=== PATIENT | female | born 1940 | race Caucasian/White ===

== ENCOUNTER 2020-01-28 10:07 | Inpatient (IN) | payer OTHER, BC ==
--- NOTE | 2020-01-28 11:14 | R.PREADM ---
PRE-ADMISSION SCREENING FORM SCREENING DATE AND TIME 01/28/2020 10:09 (CDT) ANTICIPATED REHAB ADMISSION DATE 01/30/2020 REFERRING FACILITY Doctor Office REFERRAL DATE AND TIME 01/27/2020 04:00 (CDT) REFERRAL OFFICE PHONE REFERRAL ROOM# [id number] ACUTE ADMIT DATE 01/25/2020 Previous Rehabilitation(s): No. 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 ROSE PRIMARY CARE PHYSICIAN DR ROSE REHAB FACILITY [facility] CLINICAL LIAISON Angy [place] PHYSICIAN REVIEWER Dr. Fito Cuevas M.D. MR# [id number] NAME BRENDA TREJO ADDRESS [address] [place] [address] DATE OF 1940 AGE 79 SSN# [id number] GENDER female MARITAL STATUS RACE white PREF. LANGUAGE (IF NON-PORTUGUESE) Thai ADMIT FROM 02 - [facility] PRE-HOSPITAL LIVING SETTING 01 - Home (private home/apt. board/care, assisted living, skilled nursing, transitional living) HOME TYPE AND DETAILS Type of home: single family house # of levels in the residence: 1 # of steps to enter the residence: 1 # of steps within the residence: 1 1 svetlana home, 1 step to enter w/ door frame to grab on. Daughter or someone always there to assist h er per pt. She has a tub w/ overhead shower w/ chair, daughter helps her dry up after a shower. Pt. a mbulates w/ a rollator, normally able to get up OOB unassisted, she also has a wheelchair per pt. PRE-HOSPITAL LIVING WITH Attendant FAMILY SUPPORT Yes PRIMARY FAMILY CONTACT NAME Bayleejosiah Monterroso PRIMARY FAMILY CONTACT ALT. PHONE PRIMARY FAMILY CONTACT RELATIONSHIP Daughter IS PRIMARY FAMILY CONTACT AUTH. REP.? no 1ST EMERGENCY CONTACT Baylee Urick 1ST CONTACT ALT. PHONE 1ST CONTACT RELATIONSHIP Daughter IS 1ST CONTACT AUTH. REP.? no PHONE 2ND CONTACT ON ADM.? no PATIENT EMPLOYMENT STATUS Retired (for age) PATIENT EMPLOYER No Employer PAYOR INFORMATION: 1ST PAYOR NAME MEDICARE 1ST PAYOR PHONE 1ST PAYOR INJURY/ILLNESS DUE TO ACCIDENT? No ANOTHER [employer] RESPONSIBLE? No PRIMARY REHAB/ACUTE DIAGNOSIS: Parkinsons Exaserbation, Debilitation Parkinson's disease (G20) ONSET DATE 01/25/2020 REHAB IMPAIRMENT CATEGORY (YANNICK): 06 Neurological (Neuro) MEETS 60% rule PRIMARY DIAGNOSIS-RELATED SURGERIES: No surgeries related to the primary diagnosis were performed. RISK FOR COMPLICATIONS: - mass Intraductal papillary mucinous tumor serous cystadenoma SUMMARY OF ACUTE HOSPITALIZATION: Pt. is a 79 yo Right-handed white female. On 01/25/2020 she was admitted to [facility] with diagnosis Parkinson's disease (G20). Her impairment category is Neurologic Conditions 03 - Parkinsonism (03.2). Pre-morbidly, Pt. was independent/mod-I in Transfers Control, Locomotion, and Self-Care; and she had good Balance, Safety Awareness, Social Cognition, and Communication. Currently, she has deficits of Transfers Control, Locomotion, Balance, Safety Awareness, and Self-Car e. Pt. is now referred to [facility] for acute in-patient rehabilitation in order to maximize patient's functional independence in activities of daily living, strength, ROM, and mobi lity. Patient has realistic goal of being discharged at assistance level 6-Amanda to reside at Home with Ines rivera. CONSULT: consult Cardiology for bradiocardia PAST MEDICAL HISTORY HTN HYPERLIPIDEMIA HYPOTHYROID OVERACTIVEBLADDER DEPRESSION ANXIETY MEDICATION ALLERGIES: AZITHROMYCIN CODEINE PENTAZOCINE ENVIRONMENTAL ALLERGIES: BANANA - Substance Allergies None Known - Other Allergies None Known CODE STATUS: Full code WEIGHT/HEIGHT/BMI: WEIGHT 126 lbs HEIGHT 5' 1" BMI 23.8 DIET: - Diet Type Regular - Diet - Solid Texture Regular - Diet - Liquid Texture Regular - Tube Feed N/A REVIEW OF SYSTEMS: - Gen Alert and awake Lying in bed No apparent distress Oriented to: person, time, and place - Vital Signs Vital signs stable, afebrile - CVS RRR VITAL SIGNS Temperature: 97.8 F SBP/DBP: 155/70 Pulse: 65 Resp: 18 Vital signs stable, afebrile MEDICATIONS/TREATMENT: - See attached MAR (Medication Administration Record). CURRENT SPHINCTER CONTROL: Pre-hospital bladder status: continent # of bladder accidents in the last 7 days prior to screenin Pre-hospital bowel status: continent # of bowel accidents in the last 7 days prior to screenin Patient is continent but has Overactive Bladder CURRENT LOCOMOTION STATUS: distance walked 14 feet DETAILED CURRENT FUNCTIONAL STATUS: - Walking score based on distance walked: 1(<=50ft) - Wheelchair score based on distance traveled: 0(N/A) QI SCORES: - Self-Care A. Eating 05-Setup or clean-up assistance B. Oral hygiene 05-Setup or clean-up assistance C. Toileting hygiene 03-Partial/moderate assistance E. Shower/bathe self 03-Partial/moderate assistance F. Upper body dressing G. Lower body dressing H. Putting on/taking off footwear - Mobility A. Roll left and right 03-Partial/moderate assistance B. Sit to lying 03-Partial/moderate assistance C. Lying to sitting on side of bed 03-Partial/moderate assistance D. Sit to stand 03-Partial/moderate assistance E. Chair/zlk-bf-yeatt transfer 03-Partial/moderate assistance F. Toilet transfer 03-Partial/moderate assistance G. Car transfer 88-Not attempted due to medical condition or safety concerns I. Walk 10 feet 03-Partial/moderate assistance J. Walk 50 feet with two turns 88-Not attempted due to medical condition or safety concerns K. Walk 150 feet 88-Not attempted due to medical condition or safety concerns L. Walking 10 feet on uneven surfaces 88-Not attempted due to medical condition or safety concerns M. 1 step (curb) 88-Not attempted due to medical condition or safety concerns N. 4 steps 88-Not attempted due to medical condition or safety concerns O. 12 steps 88-Not attempted due to medical condition or safety concerns P. Picking up object 88-Not attempted due to medical condition or safety concerns - Bladder and Bowel Bladder continence 1-Stress incontinence only Bowel continence 0-Always continent - Endurance Poor - Balance Poor - Safety Awareness Poor CURRENT FUNC. DEFICITS: Self-Care, Mobility, Endurance, Balance, and Safety Awareness CURRENT / PREVIOUS ASSISTIVE DEVICES: Rolling Walker Tub Bench Wheelchair HISTORY OF FALLS. HAS THE PATIENT HAD TWO OR MORE FALLS IN THE PAST YEAR OR ANY FALL WITH INJURY IN T HE PAST YEAR?: No PRIOR SURGERY. DID THE PATIENT HAVE MAJOR SURGERY DURING THE 100 DAYS PRIOR TO ADMISSION?: No THERAPY NOTES FROM ACUTE CARE: Attached. SPECIAL NEEDS: - Safety Concerns Skin breakdown precautions needed due to skin breakdown risk PATIENT NEEDS ACTIVE AND ONGOING THERAPEUTIC INTERVENTION OF MULTIPLE THERAPY DISCIPLINES, INCLUDING: - Dietary and Nutrition Adequate Nutrition. Nutritional Education. Nutritional Supplements. - Speech Therapy Memory Strategies. Speech Intelligibility Training. PATIENT NEEDS CLOSE MEDICAL SUPERVISION BY A REHABILITATION PHYSICIAN FOR: Coordination of Treatment Team PATIENT REQUIRES 24X7 REHAB NURSING FOR MEDICAL AND FUNCTIONAL MGT. OF THE FOLLOWING DEFICITS: Disease Management Medication Management Patient/Family Education Providing Safe Environment PATIENT REQUIRES INTENSIVE, COORDINATED INTERDISCIPLINARY APPROACH TO REHAB: Arranging Home Equipment/Services Discharge Planning Family Intervention/Training Form Builder/Case Management PATIENT REHAB POTENTIAL: Catherine TREJO is able and expected to receive 3 hours of individualized therapy daily on at least 5 o f every 7 days Catherine TREJO's prognosis for significant practical improvement within a reasonable period of time ap pears Good Expected level of measurable improvement will be of a practical value to Catherine TREJO's functional c apacity or adaptations to impairments Has a viable Discharge Plan Medically appropriate; condition is sufficiently stable to participate in intensive rehab program DISCHARGE PLAN: - Estimated Length of Stay (days) 13. - Consensus on plan Discharge plan has not been discussed with primary caregiver. Patient/Family is in agreement with the plan. Primary caregiver is in agreement with the plan. - Patient/Family Goals Return home with assistance. - Planned Living Setting Upon Discharge Home, to live with Daughter. RECOMMENDED CARE LEVEL: IRF RECOMMENDATION DETAILS: Recommended Admission to Comprehensive Rehabilitation Program to Increase Functional Gilbert SCREENER'S COMPLETENESS CONFIRMATION: - Screening Confirmation The patient data collection on this preadmission screening form is finished PHYSICIANS REVIEW AND ADMISSION DETERMINATION Admit - Based on my review of the Pre-Admission Screening results, in my medical judgment and experie nce, I concur with the findings and recommend admission to [facility], as this patient requires an IRF level of care. SIGNATURE PANEL: Circular Saw Edge Fuser - [electronically] signed by Aylin Hurst Hand Engraver on 01/28/2020 at 10:57 (CD T) Clinical Liaison - [electronically] signed by Angy Florence RN on 01/28/2020 at 11:07 (CDT) Physician Reviewer - [electronically] signed by Dr. Fito Cuevas M.D. on 01/28/2020 at 11:14 (CDT )
[2020-01-28 17:39] LABS: Urine Appearance CLEAR; Urine Bilirubin NEGATIVE (NEG); Urine Blood NEGATIVE (NEG); Urine Color YELLOW; Urine Glucose NEGATIVE (NEG); Urine Protein NEGATIVE (NEG); Urine Urobilinogen 0.2 mg/dL (0.2-1.0); Urine pH 6.5 (5.0-7.0)
[2020-01-28 18:04] LABS: Urine Bacteria <20 /HPF (<20); Urine Culture Reflex Order NOT NEEDED; Urine RBC <5 /HPF (NONE SEEN)
[2020-01-28] MEDS ORDERED: ONDANSETRON 4 MG/2 ML VIAL IV PRN (18:36)
[2020-01-28] MEDS ORDERED: GUAIFENESIN PO SCH (18:36)
[2020-01-28] MEDS ORDERED: P EPHED HCL PO SCH (18:36)
[2020-01-28] MEDS: IBUPROFEN 400 MG TAB PO PRN (19:18)
[2020-01-28] MEDS: DIPHENHYDRAMINE 25 MG TAB/CAP PO PRN (19:47)
[2020-01-28] MEDS: ALPRAZOLAM 0.25 MG TABLET PO SCH (19:47)
[2020-01-28] MEDS: DULOXETINE 30 MG CAP PO SCH (19:47)
[2020-01-28] MEDS: OXYBUTYNIN CHLORIDE 5 MG TAB PO SCH (19:47)
[2020-01-28] MEDS: MIRTAZAPINE 15 MG TAB PO SCH (19:48)
[2020-01-28] MEDS: CARBIDOPA/LEVODOPA 25/100 TAB PO SCH (19:48)
[2020-01-28] MEDS: ATORVASTATIN 10 MG TAB PO SCH (19:49)
[2020-01-28] MEDS ORDERED: CEFTRIAXONE/SWI 1gm 1 GM/10 ML SYR IV SCH (20:00)
[2020-01-28] MEDS: TRAMADOL HCL 50 MG TAB PO PRN (23:02)
[2020-01-29] MEDS: IBUPROFEN 400 MG TAB PO PRN (04:10)
[2020-01-29] MEDS: LEVOTHYROXINE SOD 0.125 MG TAB PO SCH (05:01)
[2020-01-29 05:37] LABS: Absolute Lymphocytes (CBC) 5.2 K/uL (0.7-4.9); Basophils % 0.5 % (0-1.3); Hematocrit 33.1 % (36.0-45.0); Lymphocytes % 34.6 % (15.3-44.8); RBC Red Blood Cell Count 3.56 M/uL (3.86-4.86)
[2020-01-29 06:32] LABS: Blood Morphology Comment NOT SEEN (NOT SEEN); Platelet Estimate ADEQ; Platelets, Giant NOTED
[2020-01-29 07:00] LABS: Albumin 3.3 g/dL (3.4-5.0); BUN Blood Urea Nitrogen 14 mg/dL (7-18); Bicarbonate 30 mmol/L (21-32); Glucose Level 93 mg/dL (74-106); Potassium 3.5 mmol/L (3.5-5.1); Prealbumin 26.3 mg/dL (20-40); Sodium Level 144 mmol/L (136-145)
[2020-01-29] MEDS: ENOXAPARIN 30 MG/0.3 ML SQ SCH (07:13)
[2020-01-29] MEDS ORDERED: predniSONE 20 MG TAB PO SCH (08:00)
[2020-01-29] MEDS: PROMOD 30 ML DOSE PO SCH ×2 (08:51→20:33)
[2020-01-29] MEDS: AMLODIPINE 5 MG TAB PO SCH (08:53)
[2020-01-29] MEDS: CARBIDOPA/LEVODOPA 25/100 TAB PO SCH ×3 (08:53→20:33)
[2020-01-29] MEDS: CETIRIZINE HCL 5 MG TABLET PO SCH (08:53)
[2020-01-29] MEDS: VITAMIN D 5,000 UNIT CAP PO SCH (08:53)
[2020-01-29] MEDS: OXYBUTYNIN CHLORIDE 5 MG TAB PO SCH ×3 (08:54→20:33)
[2020-01-29] MEDS: ALPRAZOLAM 0.25 MG TABLET PO SCH ×4 (08:54→21:59)
[2020-01-29] MEDS: DULOXETINE 30 MG CAP PO SCH ×2 (08:54→20:28)
[2020-01-29] MEDS ORDERED: DOCUSATE NA/SENNA CONC 1 TAB PO PRN (10:14)
--- NOTE | 2020-01-29 11:52 | PAPE ---
POST ADMISSION PHYSICIAN EVALUATION PATIENT: [facility] MR# [id number] REFERRING DOCTOR DR. ROSE PRIMARY CARE PHYSICIAN DR ROSE EVALUATION DATE AND TIME 01/29/2020 11:49 (CDT) NAME BRENDA TREJO DATE OF 1940 AGE 79 PHONE SSN# [id number] GENDER female EVALUATING PHYSICIAN Dr. Palak Moscoso ADMISSION DIAGNOSIS: Parkinson's disease (G20) Parkinsons Exaserbation, Debilitation ONSET DATE 01/25/2020 POST-ADMISSION FUNCTIONAL/MEDICAL STATUS: - Walking Same score based on distance walked: 1(<=50ft) - Wheelchair Same score based on distance traveled: 0(N/A) STATUS CHANGE EVALUATION: No change in Functional or Medical Status is identified compared with Pre-Admission screening. PRE-ADMISSION FUNCTIONAL/MEDICAL STATUS: - Walking score based on distance walked: 1(<=50ft) - Wheelchair score based on distance traveled: 0(N/A) PATIENT NEEDS CLOSE MEDICAL SUPERVISION BY A REHABILITATION PHYSICIAN FOR: Coordination of Treatment Team PATIENT REQUIRES 24X7 REHAB NURSING FOR MEDICAL AND FUNCTIONAL MGT. OF THE FOLLOWING DEFICITS: Disease Management Medication Management Patient/Family Education Providing Safe Environment PATIENT REQUIRES INTENSIVE, COORDINATED INTERDISCIPLINARY APPROACH TO REHAB: Arranging Home Equipment/Services Discharge Planning Family Intervention/Training Senior Structural Engineer/Case Management LIST OF IDENTIFIED AND POTENTIAL PROBLEMS: Alteration in leisure activities Infection, Actual or Potential Mobility Impaired Pain, Alteration in Comfort Self Care Deficit Skin Integrity, Actual or Potential Urinary Tract Infection (UTI), Actual or Potential RISK FOR COMPLICATIONS - mass Intraductal papillary mucinous tumor. serous cystadenoma. PATIENT COULD BE AT RISK FOR COMPLICATIONS FROM ADVERSE MEDICAL CONDITIONS DUE TO HIS/HER COMORBIDITI ES AND THE RIGORS OF THE INTENSIVE REHABILLITATION PROGRAM. METHODS OR INTERVENTIONS TO AVOID COMPLIC ATIONS INCLUDE: - Infection Clinical staff to assess and manage the signs and symptoms of infection including fever, redness, war mth, etc. - Urinary Tract Infection - Falls Patient will be evaluated for Fall Precautions and will be placed on Fall Precautions as indicated pe r protocol. - Skin Breakdown Nursing will assess skin daily using assessment tool and will place on Skin Breakdown Precautions as indicated per protocol. - Pain Clinical staff may employ non-medication methods such as massage, distraction, decrease stimulus, etc . as needed. Clinical staff will assess patient's pain level every shift per protocol to assess and e nsure pain management effectiveness. Medications will be given and the pain level re-assessed. PRELIMINARY PLAN OF CARE: - Physical Therapy Patient needs Physical Therapy for a daily minimum of 1.5 hours at least 5 out of 7 days, to improve: Mobility, Strengthening, Transfers, Stretching, ROM, Endurance, Ability to manage stairs, Gait, and Balance. - Speech Therapy Patient needs Speech Therapy for a daily minimum of 5 hours at least 5 out of 7 days, to improve: Swa llowing, Cognition, Language Skills, and Compensatory Strategies. - Rehabilitation Nursing Patient requires 24x7 Rehabilitation Nursing for: Pain Issues, Identifying and preventing risk factor s, Monitoring and reporting current medical conditions, Assisting with ambulation and transfer, Lyndsay ting with all ADL-s, Teaching patients about disease process and medications, Family teaching, Provid ing safe environment, Bowel and Bladder Issues, Skin Integrity, and Medication Management. Patient needs Senior Structural Engineer and/or Case Management for: Discharge Planning, Arranging Home Equipmen t or Services, and Family Interventions. - Dietary and Nutrition Services Patient needs Dietary and Nutrition Services for: Adequate Nutrition, Nutritional Supplements, and Nu tritional Education. - Occupational Therapy Patient needs Occupational Therapy for a daily minimum of 1.5 hours at least 5 out of 7 days, to impr ove Activities of Daily Living, including: Eating, Grooming, Bathing, Dressing, Toileting, Toilet Tra nsfers, Community Reintegration, Higher functional activities, Adaptive Equipment, Splinting, Househo ld Tasks, and Other activities as determined. QI SCORES: - Self-Care A. Eating 05-Setup or clean-up assistance B. Oral hygiene 05-Setup or clean-up assistance C. Toileting hygiene 03-Partial/moderate assistance E. Shower/bathe self 03-Partial/moderate assistance F. Upper body dressing G. Lower body dressing H. Putting on/taking off footwear - Mobility A. Roll left and right 03-Partial/moderate assistance B. Sit to lying 03-Partial/moderate assistance C. Lying to sitting on side of bed 03-Partial/moderate assistance D. Sit to stand 03-Partial/moderate assistance E. Chair/[id number]-[id number] transfer 03-Partial/moderate assistance F. Toilet transfer 03-Partial/moderate assistance G. Car transfer 88-Not attempted due to medical condition or safety concerns I. Walk 10 feet 03-Partial/moderate assistance J. Walk 50 feet with two turns 88-Not attempted due to medical condition or safety concerns K. Walk 150 feet 88-Not attempted due to medical condition or safety concerns L. Walking 10 feet on uneven surfaces 88-Not attempted due to medical condition or safety concerns M. 1 step (curb) 88-Not attempted due to medical condition or safety concerns N. 4 steps 88-Not attempted due to medical condition or safety concerns O. 12 steps 88-Not attempted due to medical condition or safety concerns P. Picking up object 88-Not attempted due to medical condition or safety concerns - Bladder and Bowel Bladder continence 1-Stress incontinence only Bowel continence 0-Always continent - Endurance Poor - Balance Poor - Safety Awareness Poor POTENTIAL FUNCTIONAL GOALS FOR PATIENT TO ACHIEVE BY DISCHARGE: - Safety Precaution Patient will remain free from falls or injury at time of discharge. - Bed Mobility Patient will perform bed mobility at 4-Patrick level of assistance. - Transfers Patient will complete transfers from bed to chair at 4-Patrick level of assistance. - Mobility Patient will ambulate 150 ft with 4-Patrick level of assistance with RW. PATIENT REHAB POTENTIAL Catherine TREJO is able and expected to receive 3 hours of individualized therapy daily on at least 5 o f every 7 days Catherine TREJO's prognosis for significant practical improvement within a reasonable period of time ap pears Good Expected level of measurable improvement will be of a practical value to Catherine TREJO's functional c apacity or adaptations to impairments Has a viable Discharge Plan Medically appropriate; condition is sufficiently stable to participate in intensive rehab program DISCHARGE PLAN: - Estimated Length of Stay (days) 13. - Consensus on plan Discharge plan has not been discussed with primary caregiver. Patient/Family is in agreement with the plan. Primary caregiver is in agreement with the plan. - Patient/Family Goals Return home with assistance. - Planned Living Setting Upon Discharge Home, to live with Daughter. CONCLUSION ON REHABILITATION NECESSITY: I have evaluated patient's pre-admission functional status and, comparing it to the patient's post-ad mission functional status now, I conclude that the pre-admission assessment was accurate. Patient's c ondition on admission supports the medical necessity of admission to IRF. It is safe to proceed with patient's therapy program. SIGNATURE PANEL: (CDT)
--- NOTE | 2020-01-29 11:56 | R.HP ---
HISTORY AND PHYSICAL FACILITY: [facility] ENCOUNTER DATE AND TIME: 01/29/2020 11:52 (CDT) MR#: [id number] NAME BRENDA TREJO ADDRESS: [address] [place] [address] CITY: [place]IP [id number] PHONE: DATE OF : 1940 AGE: 79 SSN# [id number] GENDER: Female DEXTERITY Right-handed MARITAL STATUS RACE White PRE-HOSPITAL LIVING SETTING 01 - Home (private home/apt. board/care, assisted living, nursing home, transitional living) PRE-HOSPITAL LIVING WITH Attendant ENCOUNTER PHYSICIAN: Dr. Palak Moscoso REFERRING DOCTOR: DR. ROSE DATE OF ADMISSION: 01/28/2020 12:37 (CDT) REFERRING FACILITY Doctor Office PRIMARY CARE PHYSICIAN DR ROSE HOME TYPE AND DETAILS: Type of home: single family house # of levels in the residence: 1 # of steps to enter the residence: 1 # of steps within the residence: 1 1 svetlana home, 1 step to enter w/ door frame to grab on. Daughter or someone always there to assist h er per pt. She has a tub w/ overhead shower w/ chair, daughter helps her dry up after a shower. Pt. a mbulates w/ a rollator, normally able to get up OOB unassisted, she also has a wheelchair per pt. ADMISSION DIAGNOSIS: Parkinson's disease (G20) Parkinsons Exaserbation, Debilitation ONSET DATE: 01/25/2020 PRIMARY DIAGNOSIS-RELATED SURGERIES: No surgeries related to the primary diagnosis were performed. HISTORY OF PRESENT ILLNESS (HPI): Pt. is a 79 yo Right-handed white female. On 01/25/2020 she was admitted to [facility] with diagnosis Parkinson's disease (G20). Her impairment category is Neurologic Conditions 03 - Parkinsonism (03.2). Pre-morbidly, Pt. was independent/mod-I in Transfers Control, Locomotion, and Self-Care; and she had good Balance, Safety Awareness, Social Cognition, and Communication. Currently, she has deficits of Transfers Control, Locomotion, Balance, Safety Awareness, and Self-Car e. Pt. is now referred to [facility] for acute in-patient rehabilitation in order to maximize patient's functional independence in activities of daily living, strength, ROM, and mobi lity. Patient has realistic goal of being discharged at assistance level 6-Amanda to reside at Home with Ines rivera. MEDICATION ALLERGIES: AZITHROMYCIN CODEINE PENTAZOCINE ENVIRONMENTAL ALLERGIES: BANANA - Substance Allergies None Known - Other Allergies None Known PAST MEDICAL HISTORY: HTN HYPERLIPIDEMIA HYPOTHYROID OVERACTIVEBLADDER DEPRESSION ANXIETY REVIEW OF SYSTEMS: - Gen No Chills No Fatigue No Fever - Eyes No Double Vision No itchiness - ENMT No Difficulty Swallowing - CVS No Chest Discomfort No Chest Pain No Fatigue No Weight Gain - Resp No Cough No Shortness of Breath - GI Continent No Abdominal Pain No Constipation No Diarrhea - Continent No Kidney Pain No Painful Urination No Urinary Urgency - MSK No Joint Pain No Muscle Cramps No Stiffness - Skin No Itching No Rash No Suspicious Lesions - Neuro No Coordination Difficulty No Difficulty with Concentration No Memory Loss No Seizures No Weakness - Psych No Anxiety No Depression No HIV Exposure No Persistent Infections No Seasonal Allergies - Endo No Cold/Heat Intolerance No Excessive Hunger No Excessive Thirst No Excessive Urination PHYSICAL EXAM - Gen Alert and awake Lying in bed No apparent distress Oriented to: person, time, and place - Vital Signs Vital signs stable, afebrile - CVS RRR VITAL SIGNS Temperature: 97.8 F SBP/DBP: 155/70 Pulse: 65 Resp: 18 Vital signs stable, afebrile NURSING: - Shower allowing shower ACTIVITIES OOB only with supervision QI SCORES: - Self-Care A. Eating 05-Setup or clean-up assistance B. Oral hygiene 05-Setup or clean-up assistance C. Toileting hygiene 03-Partial/moderate assistance E. Shower/bathe self 03-Partial/moderate assistance F. Upper body dressing G. Lower body dressing H. Putting on/taking off footwear - Mobility A. Roll left and right 03-Partial/moderate assistance B. Sit to lying 03-Partial/moderate assistance C. Lying to sitting on side of bed 03-Partial/moderate assistance D. Sit to stand 03-Partial/moderate assistance E. Chair/vpt-kw-tqsez transfer 03-Partial/moderate assistance F. Toilet transfer 03-Partial/moderate assistance G. Car transfer 88-Not attempted due to medical condition or safety concerns I. Walk 10 feet 03-Partial/moderate assistance J. Walk 50 feet with two turns 88-Not attempted due to medical condition or safety concerns K. Walk 150 feet 88-Not attempted due to medical condition or safety concerns L. Walking 10 feet on uneven surfaces 88-Not attempted due to medical condition or safety concerns M. 1 step (curb) 88-Not attempted due to medical condition or safety concerns N. 4 steps 88-Not attempted due to medical condition or safety concerns O. 12 steps 88-Not attempted due to medical condition or safety concerns P. Picking up object 88-Not attempted due to medical condition or safety concerns - Bladder and Bowel Bladder continence 1-Stress incontinence only Bowel continence 0-Always continent - Endurance Poor - Balance Poor - Safety Awareness Poor CURRENT FUNC. DEFICITS: Self-Care, Mobility, Endurance, Balance, and Safety Awareness MEDICATIONS: - N/A See attached MAR (Medication Administration Record) ASSESSMENT: Pt. is a 79 yo Right-handed white female.On 01/25/2020 she was admitted to [facility] with d iagnosis Parkinson's disease (G20).Her impairment category is Neurologic Conditions 03 - Parkinsonis m (03.2).Pre-morbidly, Pt. was independent/mod-I in Transfers Control, Locomotion, and Self-Care; and she had good Balance, Safety Awareness, Social Cognition, and Communication.Currently, she has defic its of Transfers Control, Locomotion, Balance, Safety Awareness, and Self-Care.Pt. is now referred to [facility] for acute in-patient rehabilitation in order to maximize patient's functional independence in activities of daily living, strength, ROM, and mobility.- Rehab Goal Patient has realistic goal of being discharged at assistance level 6-Amanda to reside at Home with Inesdavid rivera. REHAB PLAN: - Physical Therapy Gait dysfunction - to improve, our physical therapists will perform initial evaluation of pt's status upon admission and devise an individualized program for Gait Training, and Wheel Chair mobility Inability to transfer - to improve, our physical therapists will perform initial evaluation of pt's s tatus upon admission and devise an individualized program for Bed mobility Need for home safety evaluation - to improve, our physical therapists will perform initial evaluation of pt's status upon admission and devise an individualized program for Home Evaluation Need in caregiver upon discharge - to improve, our physical therapists will perform initial evaluatio n of pt's status upon admission and devise an individualized program for Caregiver Training New precaution - to improve, our physical therapists will perform initial evaluation of pt's status u sukhjinder admission and devise an individualized program for Patient precaution education Poor balance - to improve, our physical therapists will perform initial evaluation of pt's status upo n admission and devise an individualized program for Balance Training Weakness - to improve, our physical therapists will perform initial evaluation of pt's status upon ad mission and devise an individualized program for Aquatic Therapy, Neuromuscular Reeducation, and Stre ngthening Achieving independence - to improve, our physical therapists will perform initial evaluation of pt's status upon admission and devise an individualized program for Community Reintegration Activities - Occupational Therapy ADL deficits - to improve, our occupation therapists will perform initial evaluation of pt's status u sukhjindre admission and devise an individualized program for Bathing, Bed mobility, Community Reintegration , Cooking, Dressing, Eating, Fine Motor Skills, Grooming, Homemaking, Kitchen Mobility, Laundry, Yanira ent Education, Safety Awareness, Splinting - Positioning, Transfers(Toilet, Tub, Shower), and Wheel C hair Management Need for hospice spiritual care coordinator - to improve, our occupation therapists will perform initial evaluation of pt's s tatus upon admission and devise an individualized program for Caregiver Training Weakness - to improve, our occupation therapists will perform initial evaluation of pt's status upon admission and devise an individualized program for Aquatic Therapy, Balance, Endurance, UE ROM, and U E strengthening MEDICAL PLAN: - Diet Type Start Regular - Diet - Liquid Texture Start Regular - Tube Feed Start N/A - N/A See attached MAR (Medication Administration Record) Perform Neuro consult - Diet - Solid Texture Regular - Shower shower DISCHARGE PLAN: - Estimated Length of Stay (days) 13. - Consensus on plan Discharge plan has not been discussed with primary caregiver. Patient/Family is in agreement with the plan. Primary caregiver is in agreement with the plan. - Patient/Family Goals Return home with assistance. - Planned Living Setting Upon Discharge Home, to live with Daughter. SIGNATURE PANEL: (CDT)
--- NOTE | 2020-01-29 12:31 | CON ---
Date of Consultation: 01/29/2020 The patient was initially admitted on 01/25/2020 with UTI, weakness, and malaise to Dr. Bird's cinthia e. The patient was seen on 01/29/2020. Reason For Consultation: Bradycardia. History Of Present Illness: Ms. Forbes is a 79-year-old white woman. She was admitted on 2019 with weakness, malaise, possible UTI. She has a history of hypertension, dyslipidemia, anxiety, depression, hypothyroidism, and parkinsonism. Overnight on 01/27/2020, she had an episode where her heart rate dropped in her 20s. She was sleeping. No symptoms were reported. This has resolved and since then, her heart rate has been in the 60s and 70s. She denied any syncope in the past. Denied any dizziness. She denied any chest pain, shortness of breath, nausea, vomiting, palpitation, or di aphoresis. Past Medical History: As stated above. Allergies: SHE IS ALLERGIC TO BANANA, CODEINE, AND ERYTHROMYCIN. Medications At Home: Include Xanax, Lipitor, Sinemet, Synthroid, and Norvasc. Review of Systems: Negative. Social History: Negative. Family History: Negative. Physical Examination: Vital Signs: This morning, her heart rate was 64. She was in a sinus rhythm. HEENT: Negative. Chest: Clear. Cardiac: Revealed a regular rhythm and rate with an aortic sclerosis murmur. No gallops or rubs. Abdomen: Benign. Extremities: Revealed no clubbing, cyanosis, or edema. Diagnostic Data: EKG shows sinus rhythm, nonspecific changes. Her chest x-ray is negative. Her whi te count was 15,000. Hemoglobin is 10.9. Rest of her blood work is unremarkable. Impression And Plan: Bradycardia, most likely secondary to sleep apnea or some kind of vagal reactio n of some kind, possibly secondary to her parkinsonism and her medication. She is not on any beta bl ockers that would cause her heart rate to be low. Certainly, her thyroid may be an issue causing kofi t as well. Nevertheless, I would continue her present regimen for now. Plan to do an echocardiogram and event monitor as an outpatient after she leaves rehab unit. Her other problems including dyslip idemia, hypertension, anxiety, depression, and parkinsonism as well as hypothyroidism are well contro lled. I will be available for questions if the need arises, but no specific change in treatment or p lans at this point, otherwise. Case was discussed with Dr. Bird. NARCISA/MARY Voice ID: [id number] Report ID: [id number]
[2020-01-29] MEDS: HYDROCORTISONE ACETATE 25MG SUPP PR SCH (13:39)
--- NOTE | 2020-01-29 16:31 | PN ---
Date of Progress Note: 01/29/2020 Subjective: Patient was seen this morning for followup. She was on the rehab floor, lying in bed, n ot in any distress. Denies any specific complaints this morning. No abdominal pain, nausea, vomitin g. Objective: Vital Signs: Reviewed. HEENT: Unremarkable. Lungs: Clear to auscultation. Heart: Sounds normal. Abdomen: Soft. Bowel sounds normal. No guarding, rigidity, tenderness, distention. Extremities: No leg edema. Skin: Some macular rash over both lower extremities noted, which is improving on a day-to-day basis. Today, it is significantly better compared to how it was when she first came in. Laboratory Data: Today, sodium 144, potassium 3.5, chloride 107, bicarb 30, BUN 14, creatinine 0.51, glucose 93, magnesium 2. White count today 15.1, hemoglobin 10.9, platelets 150. Impression: 1.Parkinson disease. 2.Generalized weakness. 3.Debility. 4.Pneumonia. 5.Anemia. 6.Thrombocytopenia. 7.Constipation. 8.Hemorrhoids. Plan: Nurse reported patient having constipation problem, had a hard bowel movement, and also report ed patient having hemorrhoids that are protruding out and having some discomfort. So, we will go ahe ad and give Anusol rectal suppository per order and also give Senokot-S 2 tablets two times a day. C ontinue Lovenox for DVT prophylaxis. She is currently on prednisone 20 mg daily and that is causing leukocytosis, which does not require any further intervention. Her rash is improving, so starting to pacheco we will reduce dose of prednisone to 10 mg daily. Thrombocytopenia problem is stable and we w ill see her tomorrow for followup. LISA/MODL Voice ID: [id number] Report ID: [id number]
[2020-01-29] MEDS: TRAMADOL HCL 50 MG TAB PO PRN (18:48)
[2020-01-29] MEDS: DOCUSATE NA/SENNA CONC 1 TAB PO SCH (20:00)
[2020-01-29] MEDS: MIRTAZAPINE 15 MG TAB PO SCH (20:28)
[2020-01-29] MEDS: ATORVASTATIN 10 MG TAB PO SCH (20:28)
[2020-01-29] MEDS: DIPHENHYDRAMINE 25 MG TAB/CAP PO PRN (20:40)
[2020-01-30] MEDS: TRAMADOL HCL 50 MG TAB PO PRN ×4 (01:18→22:10)
[2020-01-30] MEDS: LEVOTHYROXINE SOD 0.125 MG TAB PO SCH (05:02)
[2020-01-30] MEDS: ENOXAPARIN 30 MG/0.3 ML SQ SCH (06:45)
[2020-01-30] MEDS: HYDROCORTISONE ACETATE 25MG SUPP PR SCH (06:46)
[2020-01-30] MEDS: PROMOD 30 ML DOSE PO SCH ×3 (07:55→20:21)
[2020-01-30] MEDS: ALPRAZOLAM 0.25 MG TABLET PO SCH ×3 (07:56→20:21)
[2020-01-30] MEDS: AMLODIPINE 5 MG TAB PO SCH (07:56)
[2020-01-30] MEDS: DOCUSATE NA/SENNA CONC 1 TAB PO SCH (07:57)
[2020-01-30] MEDS: CARBIDOPA/LEVODOPA 25/100 TAB PO SCH ×3 (07:57→20:20)
[2020-01-30] MEDS: DULOXETINE 30 MG CAP PO SCH ×2 (07:57→20:20)
[2020-01-30] MEDS: CETIRIZINE HCL 5 MG TABLET PO SCH (07:57)
[2020-01-30] MEDS: VITAMIN D 5,000 UNIT CAP PO SCH (07:57)
[2020-01-30] MEDS: OXYBUTYNIN CHLORIDE 5 MG TAB PO SCH ×3 (07:58→20:20)
[2020-01-30] MEDS: predniSONE 10 MG TAB PO SCH (07:58)
[2020-01-30] MEDS ORDERED: MELATONIN 3 MG TABLET PO PRN (13:29)
[2020-01-30] MEDS: MAGNES/ALUMIN/SIMET 30ML UCUP PO PRN (14:52)
--- NOTE | 2020-01-30 18:28 | R.PN ---
PROGRESS NOTES ENCOUNTER DATE AND TIME: 01/30/2020 18:19 (CDT) NAME BRENDA TREJO DATE OF : 1940 DATE OF ADMISSION: 01/28/2020 12:37 (CDT) Parkinson's disease (G20)Parkinsons Exaserbation, DebilitationCHIEF COMPLAINT: Parkinson's disease and debility. SUBJECTIVE: Pt denied any depression. Pt denied any Shortness of Breath. WBC elevated to 15.1 with mildly increased monocytes. Her electrolytes are essentially normal. Her UA is normal. She ambulated 300' with contact guard assistance using a rolling walker. VITAL SIGNS Temperature: 97.8 F SBP/DBP: 152/72 Pulse: 94 Resp: 17 MEDICATION ALLERGIES: AZITHROMYCIN CODEINE PENTAZOCINE ENVIRONMENTAL ALLERGIES: BANANA - Substance Allergies None Known - Other Allergies None Known CONSULT: Perform Neuro consult NURSING: - Shower allowing shower ACTIVITIES OOB only with supervision THERAPIES: - Dietary and Nutrition Adequate Nutrition. Nutritional Education. Nutritional Supplements. - Speech Therapy Memory Strategies. Speech Intelligibility Training. PHYSICAL EXAM - Gen Alert and awake Lying in bed No apparent distress Oriented to: person, time, and place - Skin No skin breakdown. No abnormalities - Eyes No abnormalities - ENMT No abnormalities - Neck No abnormalities - CVS RRR - Chest No abnormalities - Resp Clear to auscultation - Abd Soft - GI Non distended Deferred - No abnormalities - Ext Mild bilateral lower extremity edema. - MSK 4+/5 weakness in both lower extremities. - Neuro No focal deficits - Psych No abnormalities ASSESSMENT: Pt. is a 79 yo Right-handed white female.On 01/25/[address] [facility] with d iagnosis Parkinson's disease (G20).Her impairment category is Neurologic Conditions 03 - Parkinsonis m (03.2).Pre-morbidly, Pt. was independent/mod-I in Transfers Control, Locomotion, and Self-Care; and she had good Balance, Safety Awareness, Social Cognition, and Communication.Currently, she has defic its of Transfers Control, Locomotion, Balance, Safety Awareness, and Self-Care.Pt. is now referred to [facility] for acute in-patient rehabilitation in order to maximize patient's functional independence in activities of daily living, strength, ROM, and mobility.- Rehab Goal Patient has realistic goal of being discharged at assistance level 6-Amanda to reside at Home with Ines rivera. MDM/PLAN: - Physical Therapy Gait dysfunction - to improve, our physical therapists will perform initial evaluation of pt's statu s upon admission and devise an individualized program for Gait Training, and Wheel Chair mobility Inability to transfer - to improve, our physical therapists will perform initial evaluation of pt's status upon admission and devise an individualized program for Bed mobility Need for home safety evaluation - to improve, our physical therapists will perform initial evaluatio n of pt's status upon admission and devise an individualized program for Home Evaluation Need in caregiver upon discharge - to improve, our physical therapists will perform initial evaluati on of pt's status upon admission and devise an individualized program for Caregiver Training New precaution - to improve, our physical therapists will perform initial evaluation of pt's status upon admission and devise an individualized program for Patient precaution education Poor balance - to improve, our physical therapists will perform initial evaluation of pt's status up on admission and devise an individualized program for Balance Training Weakness - to improve, our physical therapists will perform initial evaluation of pt's status upon a dmission and devise an individualized program for Aquatic Therapy, Neuromuscular Reeducation, and Str engthening Achieving independence - to improve, our physical therapists will perform initial evaluation of pt's status upon admission and devise an individualized program for Community Reintegration Activities - Occupational Therapy ADL deficits - to improve, our occupation therapists will perform initial evaluation of pt's status upon admission and devise an individualized program for Bathing, Bed mobility, Community Reintegratio n, Cooking, Dressing, Eating, Fine Motor Skills, Grooming, Homemaking, Kitchen Mobility, Laundry, Pat ient Education, Safety Awareness, Splinting - Positioning, Transfers(Toilet, Tub, Shower), and Wheel Chair Management Need for career information specialist - to improve, our occupation therapists will perform initial evaluation of pt's status upon admission and devise an individualized program for Caregiver Training Weakness - to improve, our occupation therapists will perform initial evaluation of pt's status upon admission and devise an individualized program for Aquatic Therapy, Balance, Endurance, UE ROM, and UE strengthening - N/A See attached MAR (Medication Administration Record) Perform Neuro consult - Diet Type Continue Regular - Diet - Liquid Texture Continue Regular - Tube Feed Continue N/A - Diet - Solid Texture Continue Regular - Shower allowing shower FUNCTIONAL STATUS: - Self-Care A. Eating Amanda B. Grooming Amanda C. Bathing sup D. Dressing - Upper sup E. Dressing - Lower Patrick F. Toileting Patrick - Sphincter Control G. Bladder control sup H. Bowel control sup - Transfers Control I. Bed/Chair/Wheelchair Patrick J. Toilet Patrick K. Tub/Shower Patrick - Locomotion L. Walk/Wheelchair (B) Patrick M. Stairs maxA - Communication N. Comprehension (B) Amanda O. Expression (B) Amanda - Social Cognition P. Social Interaction Amanda Q. Problem Solving Amanda R. Memory Amanda - Endurance Fair - Balance Fair - Safety Awareness Fair QI SCORES: - Self-Care A. Eating 05-Setup or clean-up assistance B. Oral hygiene 05-Setup or clean-up assistance C. Toileting hygiene 03-Partial/moderate assistance E. Shower/bathe self 03-Partial/moderate assistance F. Upper body dressing G. Lower body dressing H. Putting on/taking off footwear - Mobility A. Roll left and right 03-Partial/moderate assistance B. Sit to lying 03-Partial/moderate assistance C. Lying to sitting on side of bed 03-Partial/moderate assistance D. Sit to stand 03-Partial/moderate assistance E. Chair/rqj-bj-kiejz transfer 03-Partial/moderate assistance F. Toilet transfer 03-Partial/moderate assistance G. Car transfer 88-Not attempted due to medical condition or safety concerns I. Walk 10 feet 03-Partial/moderate assistance J. Walk 50 feet with two turns 88-Not attempted due to medical condition or safety concerns K. Walk 150 feet 88-Not attempted due to medical condition or safety concerns L. Walking 10 feet on uneven surfaces 88-Not attempted due to medical condition or safety concerns M. 1 step (curb) 88-Not attempted due to medical condition or safety concerns N. 4 steps 88-Not attempted due to medical condition or safety concerns O. 12 steps 88-Not attempted due to medical condition or safety concerns P. Picking up object 88-Not attempted due to medical condition or safety concerns - Bladder and Bowel Bladder continence 1-Stress incontinence only Bowel continence 0-Always continent - Endurance Poor - Balance Poor - Safety Awareness Poor CURRENT FUNC. DEFICITS: Self-Care, Mobility, Endurance, Balance, and Safety Awareness SIGNATURE PANEL: (CDT)
[2020-01-30] MEDS: ATORVASTATIN 10 MG TAB PO SCH (20:20)
[2020-01-30] MEDS: MIRTAZAPINE 15 MG TAB PO SCH (20:20)
--- NOTE | 2020-01-31 00:14 | PN ---
Date of Progress Note: 01/30/2020 Subjective: The patient was seen this morning for followup. She was sitting in wheelchair. Denied any complaints. Had a bowel movement yesterday. No abdominal pain, nausea, or vomiting. Objective: Vital Signs: Reviewed. HEENT: Unremarkable. Lungs: Clear to auscultation. Heart: Sounds normal. Abdomen: Soft. Bowel sounds normal. No guarding, rigidity, tenderness, or distention. Extremities: No leg edema. Impression: 1.Parkinson disease. 2.Debility. 3.Generalized weakness. 4.Pancreatic neoplasm. Plan: We will continue current medications. Continue current stool softener and continue current an tibiotic for pneumonia. Physical therapy to be provided under guidance of Dr. Cuevas. LISA/MODL Voice ID: [id number] Report ID: [id number]
[2020-01-31] MEDS: TRAMADOL HCL 50 MG TAB PO PRN ×3 (03:16→19:38)
[2020-01-31] MEDS: LEVOTHYROXINE SOD 0.125 MG TAB PO SCH (05:04)
[2020-01-31 06:54] LABS: Absolute Lymphocytes (CBC) 5.7 K/uL (0.7-4.9); Basophils % 0.5 % (0-1.3); Hematocrit 33.7 % (36.0-45.0); Lymphocytes % 31.8 % (15.3-44.8); MPV 8.3 fL (7.6-11.3)
[2020-01-31] MEDS: ENOXAPARIN 30 MG/0.3 ML SQ SCH (06:54)
[2020-01-31 07:00] LABS: Potassium 3.4 mmol/L (3.5-5.1)
--- NOTE | 2020-01-31 07:28 | RAD REPORT ---
EXAM DESCRIPTION: RAD - Chest Single View - 01/31/2020 6:50 am CLINICAL HISTORY: cough COMPARISON: Portable January 24 TECHNIQUE: AP portable chest image was obtained 01/31/2020 6:50 am . FINDINGS: Interstitial stranding is present throughout both lung hartley worse in the left base. Insp iratory effort is improved in this decreases the overall prominence of the interstitial pattern. No n ew or progressive lung parenchymal finding. No significant failure or volume overload. Heart and vasculature are normal. No measurable pleural effusion and no pneumothorax. No acute bony abnormality seen. No acute aortic findings suspected. IMPRESSION: Improved aeration of the lung hartley. No new or progressive lung parenchymal process.
[2020-01-31] MEDS: HYDROCORTISONE ACETATE 25MG SUPP PR SCH ×2 (08:00→09:58)
[2020-01-31] MEDS: PROMOD 30 ML DOSE PO SCH ×3 (08:00→19:47)
[2020-01-31] MEDS: CETIRIZINE HCL 5 MG TABLET PO SCH (08:46)
[2020-01-31] MEDS: DULOXETINE 30 MG CAP PO SCH ×2 (08:47→19:38)
[2020-01-31] MEDS: AMLODIPINE 5 MG TAB PO SCH (08:47)
[2020-01-31] MEDS: VITAMIN D 5,000 UNIT CAP PO SCH (08:47)
[2020-01-31] MEDS: CARBIDOPA/LEVODOPA 25/100 TAB PO SCH ×3 (08:47→20:00)
[2020-01-31] MEDS: ALPRAZOLAM 0.25 MG TABLET PO SCH ×3 (08:47→20:01)
[2020-01-31] MEDS: IBUPROFEN 400 MG TAB PO PRN (08:48)
[2020-01-31 09:15] LABS: Blood Morphology Comment NOT SEEN (NOT SEEN); Platelet Estimate ADEQ
[2020-01-31] MEDS: MAGNES/ALUMIN/SIMET 30ML UCUP PO PRN (09:56)
[2020-01-31] MEDS: OXYBUTYNIN CHLORIDE 5 MG TAB PO SCH ×3 (09:57→20:00)
[2020-01-31] MEDS: predniSONE 10 MG TAB PO SCH (09:57)
[2020-01-31] MEDS ORDERED: POTASSIUM CL SA 10 MEQ TAB PO ONE (10:29)
[2020-01-31] MEDS ORDERED: POTASSIUM 25 MEQ EFFERV TAB PO ONE (10:46)
[2020-01-31] MEDS ORDERED: LOPERAMIDE HCL 2 MG CAPSULE PO ONE (13:08)
[2020-01-31] MEDS: FORMULATION-R RECTAL 30GM PR PRN (15:01)
[2020-01-31] MEDS: LIDOCAINE 4% PATCH TOP SCH (15:01)
--- NOTE | 2020-01-31 15:21 | FAST ---
[employer] FORM SHIFT START DATE/TIME: 01/31/2020 07:00 (CDT) SHIFT END DATE/TIME: 01/31/2020 19:00 (CDT) NAME BRENDA TREJO DATE OF : 1940 DATE OF ADMISSION: 01/28/2020 12:37 (CDT) PHONE: AGE: 79 N# [id number] GENDER: Female ENCOUNTER PHYSICIAN: Dr. Fito Cuevas M.D. 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 Parkinsons Exaserbation, Debilitation. EATING: EATING - STEP 1: Does the patient complete the activity by him/herself with no assistance (physical, verbal/nonverbal cueing, setup/clean-up)? No. EATING - STEP 2: Does the patient need only setup/clean-up assistance from one helper? Yes. 1. [id number] ADMISSION PERFORMANCE: Setup or clean-up assistance CODE: 05 ORAL HYGIENE: ORAL HYGIENE - STEP 1: Does the patient complete the activity by him/herself with no assistance (physical, verbal/nonverbal cueing, setup/clean-up)? No. ORAL HYGIENE - STEP 2: Does the patient need only setup/clean-up assistance from one helper? Yes. 1. [id number] ADMISSION PERFORMANCE: Setup or clean-up assistance CODE: 05 TOILETING HYGIENE: TOILETING HYGIENE - STEP 1: Does the patient complete the activity by him/herself with no assistance (physical, verbal/nonverbal cueing, setup/clean-up)? No. TOILETING HYGIENE - STEP 2: Does the patient need only setup/clean-up assistance from one helper? No. TOILETING HYGIENE - STEP 3: Does the patient need only verbal/nonverbal cueing or touching/steadying/contact guard assistance fro m one helper? No. TOILETING HYGIENE - STEP 4: Does the patient need physical assistance - for example lifting or trunk support from one helper - wi th the helper providing less than half of the effort? Yes. 1. [id number] ADMISSION PERFORMANCE: Partial/moderate assistance CODE: 03 BATHING: Not assessed/no information CODE: - DRESSING - UPPER BODY: DRESSING - UPPER BODY - STEP 1: Does the patient complete the activity by him/herself with no assistance (physical, verbal/nonverbal cueing, setup/clean-up)? No. DRESSING - UPPER BODY - STEP 2: Does the patient need only setup/clean-up assistance from one helper? No. DRESSING - UPPER BODY - STEP 3: Does the patient need only verbal/nonverbal cueing or touching/steadying/contact guard assistance fro m one helper? Yes. 1. [id number] ADMISSION PERFORMANCE: Supervision or touching assistance CODE: 04 DRESSING - LOWER BODY: DRESSING - LOWER BODY - STEP 1: Does the patient complete the activity by him/herself with no assistance (physical, verbal/nonverbal cueing, setup/clean-up)? No. DRESSING - LOWER BODY - STEP 2: Does the patient need only setup/clean-up assistance from one helper? No. DRESSING - LOWER BODY - STEP 3: Does the patient need only verbal/nonverbal cueing or touching/steadying/contact guard assistance fro m one helper? No. DRESSING - LOWER BODY - STEP 4: Does the patient need physical assistance - for example lifting or trunk support from one helper - wi th the helper providing less than half of the effort? Yes. 1. [id number] ADMISSION PERFORMANCE: Partial/moderate assistance CODE: 03 PUTTING ON/TAKING OFF FOOTWEAR: FOOTWEAR - STEP 1: Does the patient complete the activity by him/herself with no assistance (physical, verbal/nonverbal cueing, setup/clean-up)? No. FOOTWEAR - STEP 2: Does the patient need only setup/clean-up assistance from one helper? No. FOOTWEAR - STEP 3: Does the patient need only verbal/nonverbal cueing or touching/steadying/contact guard assistance fro m one helper? No. FOOTWEAR - STEP 4: Does the patient need physical assistance - for example lifting or trunk support from one helper - wi th the helper providing less than half of the effort? Yes. 1. [id number] ADMISSION PERFORMANCE: Partial/moderate assistance CODE: 03 ROLL LEFT AND RIGHT: ROLL LEFT AND RIGHT - STEP 1: Does the patient complete the activity by him/herself with no assistance (physical, verbal/nonverbal cueing, setup/clean-up)? No. ROLL LEFT AND RIGHT - STEP 2: Does the patient need only setup/clean-up assistance from one helper? No. ROLL LEFT AND RIGHT - STEP 3: Does the patient need only verbal/nonverbal cueing or touching/steadying/contact guard assistance fro m one helper? Yes. 1. [id number] ADMISSION PERFORMANCE: Supervision or touching assistance CODE: 04 SIT TO LYING: SIT TO LYING - STEP 1: Does the patient complete the activity by him/herself with no assistance (physical, verbal/nonverbal cueing, setup/clean-up)? No. SIT TO LYING - STEP 2: Does the patient need only setup/clean-up assistance from one helper? No. SIT TO LYING - STEP 3: Does the patient need only verbal/nonverbal cueing or touching/steadying/contact guard assistance fro m one helper? Yes. 1. [id number] ADMISSION PERFORMANCE: Supervision or touching assistance CODE: 04 LYING TO SITTING: LYING TO SITTING ON SIDE OF BED - STEP 1: Does the patient complete the activity by him/herself with no assistance (physical, verbal/nonverbal cueing, setup/clean-up)? No. LYING TO SITTING ON SIDE OF BED - STEP 2: Does the patient need only setup/clean-up assistance from one helper? No. LYING TO SITTING ON SIDE OF BED - STEP 3: Does the patient need only verbal/nonverbal cueing or touching/steadying/contact guard assistance fro m one helper? Yes. 1. [id number] ADMISSION PERFORMANCE: Supervision or touching assistance CODE: 04 SIT TO STAND: SIT TO STAND - STEP 1: Does the patient complete the activity by him/herself with no assistance (physical, verbal/nonverbal cueing, setup/clean-up)? No. SIT TO STAND - STEP 2: Does the patient need only setup/clean-up assistance from one helper? No. SIT TO STAND - STEP 3: Does the patient need only verbal/nonverbal cueing or touching/steadying/contact guard assistance fro m one helper? Yes. 1. [id number] ADMISSION PERFORMANCE: Supervision or touching assistance CODE: 04 TRANSFERS: BED, CHAIR: CHAIR/[id number] TRANSFER - STEP 1: Does the patient complete the activity by him/herself with no assistance (physical, verbal/nonverbal cueing, setup/clean-up)? No. CHAIR/[id number] TRANSFER - STEP 2: Does the patient need only setup/clean-up assistance from one helper? No. CHAIR/OZO-RH-BLOIN TRANSFER - STEP 3: Does the patient need only verbal/nonverbal cueing or touching/steadying/contact guard assistance fro m one helper? Yes. 1. [id number] ADMISSION PERFORMANCE: Supervision or touching assistance CODE: 04 TRANSFER TOILET: TOILET TRANSFER - STEP 1: Does the patient complete the activity by him/herself with no assistance (physical, verbal/nonverbal cueing, setup/clean-up)? No. TOILET TRANSFER - STEP 2: Does the patient need only setup/clean-up assistance from one helper? No. TOILET TRANSFER - STEP 3: Does the patient need only verbal/nonverbal cueing or touching/steadying/contact guard assistance fro m one helper? Yes. 1. [id number] ADMISSION PERFORMANCE: Supervision or touching assistance CODE: 04 TRANSFERS: CAR: Not assessed/no information CODE: - WALK 10 FEET: Not assessed/no information CODE: - 1 STEP (CURB): Not assessed/no information CODE: - PICKING UP OBJECT: Not assessed/no information CODE: - DOES THE PATIENT USE A WHEELCHAIR/SCOOTER? CODE: EXPR INDICATE THE TYPE OF WHEELCHAIR/SCOOTER USED: CODE: EXPR INDICATE THE TYPE OF WHEELCHAIR/SCOOTER USED: CODE: EXPR BLADDER AND BOWEL: H350. BLADDER CONTINENCE (3-DAY ASSESSMENT PERIOD): Incontinent daily (at least once a day) CODE: 3 H400. BOWEL CONTINENCE (3-DAY ASSESSMENT PERIOD): Occasionally incontinent (one episode of bowel incontinence) CODE: 1 SIGNATURE PANEL: The following modified sections: 1. [id number] Admission Performance, 1. [id number] Admission Performance, 1. ST4052O Admission Performance, 1. BA7699o Admission Performance, 1. HI1022j Admission Performance, 1. CV5994h Admission Performance, 1. AP2583S Admission Performance, 1. JP0519J Admission Performance , 1. [id number] Admission Performance, 1. [id number] Admission Performance, 1. HO0279M Admission Performanc e, 1. [id number] Admission Performance, 1. [id number] Admission Performance, 1. [id number] Admission Performan ce, H400. Bowel Continence (3-day assessment period), H350. Bladder Continence (3-day assessment citlali od) were [electronically] signed by Melissa Hernandez C.N.A. on ThuJan 31 2020 15:20:20 GMT-0500 (Centra [place] Daylight Time)
--- NOTE | 2020-01-31 19:25 | R.PN ---
PROGRESS NOTES ENCOUNTER DATE AND TIME: 01/31/2020 19:21 (CDT) NAME BRENDA TREJO DATE OF : 1940 DATE OF ADMISSION: 01/28/2020 12:37 (CDT) Parkinson's disease (G20)Parkinsons Exaserbation, DebilitationCHIEF COMPLAINT: Parkinson's disease and debility. SUBJECTIVE: Pt denied any depression. Pt denied any Shortness of Breath. WBC is chronically elevated to 15.1 to 17.9 secondary to leukocytosis with mildly increased monocytes . Her electrolytes are essentially normal except for mildly low potassium. Her UA is normal. She is followed by Dr. Bird. She ambulated 300' with contact guard assistance using a rolling walker. VITAL SIGNS Temperature: 97.8 F SBP/DBP: 148/55 Pulse: 58 Resp: 16 MEDICATION ALLERGIES: AZITHROMYCIN CODEINE PENTAZOCINE ENVIRONMENTAL ALLERGIES: BANANA - Substance Allergies None Known - Other Allergies None Known CONSULT: Perform Neuro consult NURSING: - Shower allowing shower ACTIVITIES OOB only with supervision THERAPIES: - Dietary and Nutrition Adequate Nutrition. Nutritional Education. Nutritional Supplements. - Speech Therapy Memory Strategies. Speech Intelligibility Training. PHYSICAL EXAM - Gen Alert and awake Lying in bed No apparent distress Oriented to: person, time, and place - Skin No skin breakdown. No abnormalities - Eyes No abnormalities - ENMT No abnormalities - Neck No abnormalities - CVS RRR - Chest No abnormalities - Resp Clear to auscultation - Abd Soft - GI Non distended Deferred - No abnormalities - Ext Mild bilateral lower extremity edema. - MSK 4+/5 weakness in both lower extremities. - Neuro No focal deficits - Psych No abnormalities ASSESSMENT: Pt. is a 79 yo Right-handed white female.On 01/25/2020 she was admitted to [facility] with d iagnosis Parkinson's disease (G20).Her impairment category is Neurologic Conditions 03 - Parkinsonis m (03.2).Pre-morbidly, Pt. was independent/mod-I in Transfers Control, Locomotion, and Self-Care; and she had good Balance, Safety Awareness, Social Cognition, and Communication.Currently, she has defic its of Transfers Control, Locomotion, Balance, Safety Awareness, and Self-Care.Pt. is now referred to [facility] for acute in-patient rehabilitation in order to maximize patient's functional independence in activities of daily living, strength, ROM, and mobility.- Rehab Goal Patient has realistic goal of being discharged at assistance level 6-Amanda to reside at Home with Ines rivera. MDM/PLAN: - Physical Therapy Gait dysfunction - to improve, our physical therapists will perform initial evaluation of pt's statu s upon admission and devise an individualized program for Gait Training, and Wheel Chair mobility Inability to transfer - to improve, our physical therapists will perform initial evaluation of pt's status upon admission and devise an individualized program for Bed mobility Need for home safety evaluation - to improve, our physical therapists will perform initial evaluatio n of pt's status upon admission and devise an individualized program for Home Evaluation Need in caregiver upon discharge - to improve, our physical therapists will perform initial evaluati on of pt's status upon admission and devise an individualized program for Caregiver Training New precaution - to improve, our physical therapists will perform initial evaluation of pt's status upon admission and devise an individualized program for Patient precaution education Poor balance - to improve, our physical therapists will perform initial evaluation of pt's status up on admission and devise an individualized program for Balance Training Weakness - to improve, our physical therapists will perform initial evaluation of pt's status upon a dmission and devise an individualized program for Aquatic Therapy, Neuromuscular Reeducation, and Str engthening Achieving independence - to improve, our physical therapists will perform initial evaluation of pt's status upon admission and devise an individualized program for Community Reintegration Activities - Occupational Therapy ADL deficits - to improve, our occupation therapists will perform initial evaluation of pt's status upon admission and devise an individualized program for Bathing, Bed mobility, Community Reintegratio n, Cooking, Dressing, Eating, Fine Motor Skills, Grooming, Homemaking, Kitchen Mobility, Laundry, Pat ient Education, Safety Awareness, Splinting - Positioning, Transfers(Toilet, Tub, Shower), and Wheel Chair Management Need for rn wound care - to improve, our occupation therapists will perform initial evaluation of pt's status upon admission and devise an individualized program for Caregiver Training Weakness - to improve, our occupation therapists will perform initial evaluation of pt's status upon admission and devise an individualized program for Aquatic Therapy, Balance, Endurance, UE ROM, and UE strengthening - N/A See attached MAR (Medication Administration Record) Perform Neuro consult - Diet Type Continue Regular - Diet - Liquid Texture Continue Regular - Tube Feed Continue N/A - Diet - Solid Texture Continue Regular - Shower allowing shower FUNCTIONAL STATUS: UPDATED AT WEEKLY TEAM CONFERENCE - Walking Same score based on distance walked: 1(<=50ft) - Wheelchair Same score based on distance traveled: 0(N/A) FUNCTIONAL STATUS: - Self-Care A. Eating Amanda B. Grooming Amanda C. Bathing sup D. Dressing - Upper sup E. Dressing - Lower Patrick F. Toileting Patrick - Sphincter Control G. Bladder control sup H. Bowel control sup - Transfers Control I. Bed/Chair/Wheelchair Patrick J. Toilet Patrick K. Tub/Shower Patrick - Locomotion L. Walk/Wheelchair (B) Patrick M. Stairs maxA - Communication N. Comprehension (B) Amanda O. Expression (B) Amanda - Social Cognition P. Social Interaction Amanda Q. Problem Solving Amanda R. Memory Amanda - Endurance Fair - Balance Fair - Safety Awareness Fair QI SCORES: - Self-Care A. Eating 05-Setup or clean-up assistance B. Oral hygiene 05-Setup or clean-up assistance C. Toileting hygiene 03-Partial/moderate assistance E. Shower/bathe self 03-Partial/moderate assistance F. Upper body dressing G. Lower body dressing H. Putting on/taking off footwear - Mobility A. Roll left and right 03-Partial/moderate assistance B. Sit to lying 03-Partial/moderate assistance C. Lying to sitting on side of bed 03-Partial/moderate assistance D. Sit to stand 03-Partial/moderate assistance E. Chair/hmv-[id number] transfer 03-Partial/moderate assistance F. Toilet transfer 03-Partial/moderate assistance G. Car transfer 88-Not attempted due to medical condition or safety concerns I. Walk 10 feet 03-Partial/moderate assistance J. Walk 50 feet with two turns 88-Not attempted due to medical condition or safety concerns K. Walk 150 feet 88-Not attempted due to medical condition or safety concerns L. Walking 10 feet on uneven surfaces 88-Not attempted due to medical condition or safety concerns M. 1 step (curb) 88-Not attempted due to medical condition or safety concerns N. 4 steps 88-Not attempted due to medical condition or safety concerns O. 12 steps 88-Not attempted due to medical condition or safety concerns P. Picking up object 88-Not attempted due to medical condition or safety concerns - Bladder and Bowel Bladder continence 1-Stress incontinence only Bowel continence 0-Always continent - Endurance Poor - Balance Poor - Safety Awareness Poor CURRENT FUNC. DEFICITS: Self-Care, Mobility, Endurance, Balance, and Safety Awareness SIGNATURE PANEL: (CDT)
[2020-01-31] MEDS: ATORVASTATIN 10 MG TAB PO SCH (20:01)
[2020-01-31] MEDS: MIRTAZAPINE 15 MG TAB PO SCH (20:01)
--- NOTE | 2020-02-01 00:15 | PN ---
Date of Progress Note: 01/31/2020 Subjective: The patient was seen this morning for followup. She was lying in bed, not in distress. Denies any complaints. No abdominal pain. No chest pain or shortness of breath. No nausea or vomi ting. Objective: Vital Signs: Reviewed. HEENT: Unremarkable. Lungs: Clear to auscultation. No wheezing. No rales. Heart: Sounds normal. Abdomen: Soft. Bowel sounds normal. No guarding, rigidity, tenderness, or distention. Extremities: No leg edema. Skin: Rash from her leg continues to improve on a daily basis. Laboratory Data: White count today 17.9, hemoglobin 11, platelet count 203. Sodium 144, potassium 3 .4, chloride 104, bicarb 32, BUN 23, creatinine 0.67, glucose 97. Chest x-ray shows improvement comp ared to previous chest x-ray. No new or progressive lung findings. Impression: 1.Pneumonia, improved. 2.Parkinson disease. 3.Hypokalemia. 4.Generalized weakness. 5.Debility. Plan: The patient was getting Rocephin, but nurse today tells me that when the patient came to rehab floor, somehow the nurse who admitted the patient did not continue that in spite of the order was wr itten to continue all the medications as she was on medical floor. In any case, at this point, there is no need to restart any antibiotics. Her elevated WBC count is likely due to steroid medications, which is prednisone and not necessarily infection. I will continue to see her steroid dose will be reduced probably tomorrow. Currently, she is on 10 mg daily and we will reduce it to 5 mg daily, probably starting tomorrow. LISA/MODL Voice ID: [id number] Report ID: [id number]
[2020-02-01] MEDS: ACETAMINOPHEN 500 MG TAB PO PRN ×3 (02:15→14:09)
[2020-02-01] MEDS: LEVOTHYROXINE SOD 0.125 MG TAB PO SCH (05:03)
[2020-02-01] MEDS: predniSONE 10 MG TAB PO SCH (08:00)
[2020-02-01] MEDS ORDERED: LIDOCAINE 4% PATCH TOP SCH (08:00)
[2020-02-01] MEDS: ENOXAPARIN 30 MG/0.3 ML SQ SCH (08:49)
[2020-02-01] MEDS: PROMOD 30 ML DOSE PO SCH ×2 (08:49→20:44)
[2020-02-01] MEDS: DULOXETINE 30 MG CAP PO SCH ×2 (08:49→20:43)
[2020-02-01] MEDS: ALPRAZOLAM 0.25 MG TABLET PO SCH ×3 (08:50→20:43)
[2020-02-01] MEDS: OXYBUTYNIN CHLORIDE 5 MG TAB PO SCH ×3 (08:50→20:43)
[2020-02-01] MEDS: AMLODIPINE 5 MG TAB PO SCH (08:50)
[2020-02-01] MEDS: CETIRIZINE HCL 5 MG TABLET PO SCH (08:50)
[2020-02-01] MEDS: VITAMIN D 5,000 UNIT CAP PO SCH (08:50)
[2020-02-01] MEDS: CARBIDOPA/LEVODOPA 25/100 TAB PO SCH ×3 (08:50→20:38)
[2020-02-01] MEDS: FORMULATION-R RECTAL 30GM PR PRN (08:51)
[2020-02-01] MEDS: predniSONE 5 MG TAB PO SCH (08:57)
[2020-02-01] MEDS: TRAMADOL HCL 50 MG TAB PO PRN (08:57)
[2020-02-01] MEDS: IBUPROFEN 400 MG TAB PO PRN ×2 (11:41→20:43)
--- NOTE | 2020-02-01 17:57 | R.PN ---
PROGRESS NOTES ENCOUNTER DATE AND TIME: 02/01/2020 17:52 (CDT) NAME BRENDA TREJO DATE OF : 1940 DATE OF ADMISSION: 01/28/2020 12:37 (CDT) Parkinson's disease (G20)Parkinsons Exaserbation, DebilitationCHIEF COMPLAINT: Parkinson's disease and debility. SUBJECTIVE: Pt denied any depression. Pt denied any Shortness of Breath. WBC is chronically elevated to 15.1 to 17.9 secondary to leukocytosis with mildly increased monocytes . Her electrolytes are essentially normal except for mildly low potassium. Her UA is normal. She is followed by Dr. Bird. She ambulated 1225' with standby assistance using a rolling walker. VITAL SIGNS Temperature: 98.3 F SBP/DBP: 156/74 Pulse: 60 Resp: 16 MEDICATION ALLERGIES: AZITHROMYCIN CODEINE PENTAZOCINE ENVIRONMENTAL ALLERGIES: BANANA - Substance Allergies None Known - Other Allergies None Known CONSULT: Perform Neuro consult NURSING: - Shower allowing shower ACTIVITIES OOB only with supervision THERAPIES: - Dietary and Nutrition Adequate Nutrition. Nutritional Education. Nutritional Supplements. - Speech Therapy Memory Strategies. Speech Intelligibility Training. PHYSICAL EXAM - Gen Alert and awake Lying in bed No apparent distress Oriented to: person, time, and place - Skin No skin breakdown. No abnormalities - Eyes No abnormalities - ENMT No abnormalities - Neck No abnormalities - CVS RRR - Chest No abnormalities - Resp Clear to auscultation - Abd Soft - GI Non distended Deferred - No abnormalities - Ext Mild bilateral lower extremity edema. - MSK 4+/5 weakness in both lower extremities. - Neuro No focal deficits - Psych No abnormalities ASSESSMENT: Pt. is a 79 yo Right-handed white female.On 01/25/2020 she was admitted to [facility] with d iagnosis Parkinson's disease (G20).Her impairment category is Neurologic Conditions 03 - Parkinsonis m (03.2).Pre-morbidly, Pt. was independent/mod-I in Transfers Control, Locomotion, and Self-Care; and she had good Balance, Safety Awareness, Social Cognition, and Communication.Currently, she has defic its of Transfers Control, Locomotion, Balance, Safety Awareness, and Self-Care.Pt. is now referred to [facility] for acute in-patient rehabilitation in order to maximize patient's functional independence in activities of daily living, strength, ROM, and mobility.- Rehab Goal Patient has realistic goal of being discharged at assistance level 6-Amanda to reside at Home with Ines rivera. MDM/PLAN: - Physical Therapy Gait dysfunction - to improve, our physical therapists will perform initial evaluation of pt's statu s upon admission and devise an individualized program for Gait Training, and Wheel Chair mobility Inability to transfer - to improve, our physical therapists will perform initial evaluation of pt's status upon admission and devise an individualized program for Bed mobility Need for home safety evaluation - to improve, our physical therapists will perform initial evaluatio n of pt's status upon admission and devise an individualized program for Home Evaluation Need in caregiver upon discharge - to improve, our physical therapists will perform initial evaluati on of pt's status upon admission and devise an individualized program for Caregiver Training New precaution - to improve, our physical therapists will perform initial evaluation of pt's status upon admission and devise an individualized program for Patient precaution education Poor balance - to improve, our physical therapists will perform initial evaluation of pt's status up on admission and devise an individualized program for Balance Training Weakness - to improve, our physical therapists will perform initial evaluation of pt's status upon a dmission and devise an individualized program for Aquatic Therapy, Neuromuscular Reeducation, and Str engthening Achieving independence - to improve, our physical therapists will perform initial evaluation of pt's status upon admission and devise an individualized program for Community Reintegration Activities - Occupational Therapy ADL deficits - to improve, our occupation therapists will perform initial evaluation of pt's status upon admission and devise an individualized program for Bathing, Bed mobility, Community Reintegratio n, Cooking, Dressing, Eating, Fine Motor Skills, Grooming, Homemaking, Kitchen Mobility, Laundry, Pat ient Education, Safety Awareness, Splinting - Positioning, Transfers(Toilet, Tub, Shower), and Wheel Chair Management Need for health care sanitary technician - to improve, our occupation therapists will perform initial evaluation of pt's status upon admission and devise an individualized program for Caregiver Training Weakness - to improve, our occupation therapists will perform initial evaluation of pt's status upon admission and devise an individualized program for Aquatic Therapy, Balance, Endurance, UE ROM, and UE strengthening - N/A See attached MAR (Medication Administration Record) Perform Neuro consult - Diet Type Continue Regular - Diet - Liquid Texture Continue Regular - Tube Feed Continue N/A - Diet - Solid Texture Continue Regular - Shower allowing shower FUNCTIONAL STATUS: UPDATED AT WEEKLY TEAM CONFERENCE - Walking Same score based on distance walked: 1(<=50ft) - Wheelchair Same score based on distance traveled: 0(N/A) FUNCTIONAL STATUS: - Self-Care A. Eating Amanda B. Grooming Amanda C. Bathing sup D. Dressing - Upper sup E. Dressing - Lower Patrick F. Toileting Patrick - Sphincter Control G. Bladder control sup H. Bowel control sup - Transfers Control I. Bed/Chair/Wheelchair Patrick J. Toilet Patrick K. Tub/Shower Patrick - Locomotion L. Walk/Wheelchair (B) Patrick M. Stairs maxA - Communication N. Comprehension (B) Amanda O. Expression (B) Amanda - Social Cognition P. Social Interaction Amanda Q. Problem Solving Amanda R. Memory Amanda - Endurance Fair - Balance Fair - Safety Awareness Fair QI SCORES: - Self-Care A. Eating 05-Setup or clean-up assistance B. Oral hygiene 05-Setup or clean-up assistance C. Toileting hygiene 03-Partial/moderate assistance E. Shower/bathe self 03-Partial/moderate assistance F. Upper body dressing G. Lower body dressing H. Putting on/taking off footwear - Mobility A. Roll left and right 03-Partial/moderate assistance B. Sit to lying 03-Partial/moderate assistance C. Lying to sitting on side of bed 03-Partial/moderate assistance D. Sit to stand 03-Partial/moderate assistance E. Chair/hmp-lv-eeany transfer 03-Partial/moderate assistance F. Toilet transfer 03-Partial/moderate assistance G. Car transfer 88-Not attempted due to medical condition or safety concerns I. Walk 10 feet 03-Partial/moderate assistance J. Walk 50 feet with two turns 88-Not attempted due to medical condition or safety concerns K. Walk 150 feet 88-Not attempted due to medical condition or safety concerns L. Walking 10 feet on uneven surfaces 88-Not attempted due to medical condition or safety concerns M. 1 step (curb) 88-Not attempted due to medical condition or safety concerns N. 4 steps 88-Not attempted due to medical condition or safety concerns O. 12 steps 88-Not attempted due to medical condition or safety concerns P. Picking up object 88-Not attempted due to medical condition or safety concerns - Bladder and Bowel Bladder continence 1-Stress incontinence only Bowel continence 0-Always continent - Endurance Poor - Balance Poor - Safety Awareness Poor CURRENT FUNC. DEFICITS: Self-Care, Mobility, Endurance, Balance, and Safety Awareness SIGNATURE PANEL: (CDT)
[2020-02-01] MEDS: DIPHENHYDRAMINE 25 MG TAB/CAP PO PRN (19:42)
[2020-02-01] MEDS: MIRTAZAPINE 15 MG TAB PO SCH (20:38)
[2020-02-01] MEDS: ATORVASTATIN 10 MG TAB PO SCH (20:43)
[2020-02-02] MEDS: TRAMADOL HCL 50 MG TAB PO PRN ×4 (00:24→21:02)
[2020-02-02] MEDS: LEVOTHYROXINE SOD 0.125 MG TAB PO SCH (05:06)
[2020-02-02] MEDS: IBUPROFEN 400 MG TAB PO PRN ×3 (05:15→20:11)
[2020-02-02 06:20] LABS: Basophils % 0.7 % (0-1.3); Hematocrit 31.6 % (36.0-45.0); Lymphocytes % 35.1 % (15.3-44.8); MPV 7.9 fL (7.6-11.3); RBC Red Blood Cell Count 3.38 M/uL (3.86-4.86)
[2020-02-02 06:41] LABS: Albumin 3.3 g/dL (3.4-5.0); Magnesium 2.2 mg/dL (1.8-2.4); Potassium 3.4 mmol/L (3.5-5.1)
[2020-02-02] MEDS: ENOXAPARIN 30 MG/0.3 ML SQ SCH (06:43)
--- NOTE | 2020-02-02 06:58 | PN ---
Date of Progress Note: 02/01/2020 Subjective: The patient was seen this morning for followup. No new complaints or problems reported by her. Lying in bed. Not in any distress. Objective: Vital Signs: Reviewed. HEENT: Unremarkable. Lungs: Clear to auscultation. Heart: Sounds normal. Abdomen: Soft. Bowel sounds normal. No guarding, rigidity, tenderness, or distention. Extremities: No leg edema. Skin: Rash from both lower extremity shows improvement compared to last time when I saw her. Impression: 1.Generalized weakness. 2.Debility. 3.Parkinson disease. Plan: We will continue current medication. Reduce dose of prednisone from 10 mg to 5 mg daily. Con tinue physical therapy under guidance of Dr. Cuevas. I will see her tomorrow for followup. LISA/MODL Voice ID: [id number] Report ID: [id number]
[2020-02-02] MEDS: LIDOCAINE 4% PATCH TOP SCH (07:33)
[2020-02-02] MEDS: PROMOD 30 ML DOSE PO SCH ×2 (07:55→20:10)
[2020-02-02] MEDS: predniSONE 5 MG TAB PO SCH (07:55)
[2020-02-02] MEDS: CETIRIZINE HCL 5 MG TABLET PO SCH (07:56)
[2020-02-02] MEDS: CARBIDOPA/LEVODOPA 25/100 TAB PO SCH ×3 (07:56→20:10)
[2020-02-02] MEDS: OXYBUTYNIN CHLORIDE 5 MG TAB PO SCH ×3 (07:56→20:11)
[2020-02-02] MEDS: AMLODIPINE 5 MG TAB PO SCH (07:56)
[2020-02-02] MEDS: DULOXETINE 30 MG CAP PO SCH ×2 (07:56→20:10)
[2020-02-02] MEDS: VITAMIN D 5,000 UNIT CAP PO SCH (07:56)
[2020-02-02] MEDS ORDERED: POTASSIUM CL SA 10 MEQ TAB PO ONE (07:57)
[2020-02-02] MEDS: ALPRAZOLAM 0.25 MG TABLET PO SCH ×3 (07:57→20:10)
[2020-02-02] MEDS: ACETAMINOPHEN 500 MG TAB PO PRN (09:23)
--- NOTE | 2020-02-02 16:48 | R.PN ---
PROGRESS NOTES ENCOUNTER DATE AND TIME: 02/02/2020 16:43 (CDT) NAME BRENDA TREJO DATE OF : 1940 DATE OF ADMISSION: 01/28/2020 12:37 (CDT) Parkinson's disease (G20)Parkinsons Exaserbation, DebilitationCHIEF COMPLAINT: Parkinson's disease and debility. SUBJECTIVE: Pt denied any depression. Pt denied any Shortness of Breath. WBC is chronically elevated to 11.4 secondary to leukocytosis. Her electrolytes are essentially nick l except for mildly low potassium of 3.4. Prealbumin 28.0. Her UA is normal. She is followed by Dr. Bird. She ambulated 650' with standby assistance using a rolling walker. VITAL SIGNS Temperature: 97.8 F SBP/DBP: 155/70 Pulse: 69 Resp: 15 MEDICATION ALLERGIES: AZITHROMYCIN CODEINE PENTAZOCINE ENVIRONMENTAL ALLERGIES: BANANA - Substance Allergies None Known - Other Allergies None Known CONSULT: Perform Neuro consult NURSING: - Shower allowing shower ACTIVITIES OOB only with supervision THERAPIES: - Dietary and Nutrition Adequate Nutrition. Nutritional Education. Nutritional Supplements. - Speech Therapy Memory Strategies. Speech Intelligibility Training. PHYSICAL EXAM - Gen Alert and awake Lying in bed No apparent distress Oriented to: person, time, and place - Skin No skin breakdown. No abnormalities - Eyes No abnormalities - ENMT No abnormalities - Neck No abnormalities - CVS RRR - Chest No abnormalities - Resp Clear to auscultation - Abd Soft - GI Non distended Deferred - No abnormalities - Ext Mild bilateral lower extremity edema. - MSK 4+/5 weakness in both lower extremities. - Neuro No focal deficits - Psych No abnormalities ASSESSMENT: Pt. is a 79 yo Right-handed white female.On 01/25/[address] to [facility] with d iagnosis Parkinson's disease (G20).Her impairment category is Neurologic Conditions 03 - Parkinsonis m (03.2).Pre-morbidly, Pt. was independent/mod-I in Transfers Control, Locomotion, and Self-Care; and she had good Balance, Safety Awareness, Social Cognition, and Communication.Currently, she has defic its of Transfers Control, Locomotion, Balance, Safety Awareness, and Self-Care.Pt. is now referred to [facility] for acute in-patient rehabilitation in order to maximize patient's functional independence in activities of daily living, strength, ROM, and mobility.- Rehab Goal Patient has realistic goal of being discharged at assistance level 6-Amanda to reside at Home with Ines rivera. MDM/PLAN: - Physical Therapy Gait dysfunction - to improve, our physical therapists will perform initial evaluation of pt's statu s upon admission and devise an individualized program for Gait Training, and Wheel Chair mobility Inability to transfer - to improve, our physical therapists will perform initial evaluation of pt's status upon admission and devise an individualized program for Bed mobility Need for home safety evaluation - to improve, our physical therapists will perform initial evaluatio n of pt's status upon admission and devise an individualized program for Home Evaluation Need in caregiver upon discharge - to improve, our physical therapists will perform initial evaluati on of pt's status upon admission and devise an individualized program for Caregiver Training New precaution - to improve, our physical therapists will perform initial evaluation of pt's status upon admission and devise an individualized program for Patient precaution education Poor balance - to improve, our physical therapists will perform initial evaluation of pt's status up on admission and devise an individualized program for Balance Training Weakness - to improve, our physical therapists will perform initial evaluation of pt's status upon a dmission and devise an individualized program for Aquatic Therapy, Neuromuscular Reeducation, and Str engthening Achieving independence - to improve, our physical therapists will perform initial evaluation of pt's status upon admission and devise an individualized program for Community Reintegration Activities - Occupational Therapy ADL deficits - to improve, our occupation therapists will perform initial evaluation of pt's status upon admission and devise an individualized program for Bathing, Bed mobility, Community Reintegratio n, Cooking, Dressing, Eating, Fine Motor Skills, Grooming, Homemaking, Kitchen Mobility, Laundry, Pat ient Education, Safety Awareness, Splinting - Positioning, Transfers(Toilet, Tub, Shower), and Wheel Chair Management Need for coronary care unit nurse - to improve, our occupation therapists will perform initial evaluation of pt's status upon admission and devise an individualized program for Caregiver Training Weakness - to improve, our occupation therapists will perform initial evaluation of pt's status upon admission and devise an individualized program for Aquatic Therapy, Balance, Endurance, UE ROM, and UE strengthening - N/A See attached MAR (Medication Administration Record) Perform Neuro consult - Diet Type Continue Regular - Diet - Liquid Texture Continue Regular - Tube Feed Continue N/A - Diet - Solid Texture Continue Regular - Shower allowing shower FUNCTIONAL STATUS: UPDATED AT WEEKLY TEAM CONFERENCE - Walking Same score based on distance walked: 1(<=50ft) - Wheelchair Same score based on distance traveled: 0(N/A) FUNCTIONAL STATUS: - Self-Care A. Eating Amanda B. Grooming Amanda C. Bathing sup D. Dressing - Upper sup E. Dressing - Lower Patrick F. Toileting Patrick - Sphincter Control G. Bladder control sup H. Bowel control sup - Transfers Control I. Bed/Chair/Wheelchair Patrick J. Toilet Patrick K. Tub/Shower Patrick - Locomotion L. Walk/Wheelchair (B) Patrick M. Stairs maxA - Communication N. Comprehension (B) Amanda O. Expression (B) Amanda - Social Cognition P. Social Interaction Amanda Q. Problem Solving Amanda R. Memory Amanda - Endurance Fair - Balance Fair - Safety Awareness Fair QI SCORES: - Self-Care A. Eating 05-Setup or clean-up assistance B. Oral hygiene 05-Setup or clean-up assistance C. Toileting hygiene 03-Partial/moderate assistance E. Shower/bathe self 03-Partial/moderate assistance F. Upper body dressing G. Lower body dressing H. Putting on/taking off footwear - Mobility A. Roll left and right 03-Partial/moderate assistance B. Sit to lying 03-Partial/moderate assistance C. Lying to sitting on side of bed 03-Partial/moderate assistance D. Sit to stand 03-Partial/moderate assistance E. Chair/owv-zs-rvbcr transfer 03-Partial/moderate assistance F. Toilet transfer 03-Partial/moderate assistance G. Car transfer 88-Not attempted due to medical condition or safety concerns I. Walk 10 feet 03-Partial/moderate assistance J. Walk 50 feet with two turns 88-Not attempted due to medical condition or safety concerns K. Walk 150 feet 88-Not attempted due to medical condition or safety concerns L. Walking 10 feet on uneven surfaces 88-Not attempted due to medical condition or safety concerns M. 1 step (curb) 88-Not attempted due to medical condition or safety concerns N. 4 steps 88-Not attempted due to medical condition or safety concerns O. 12 steps 88-Not attempted due to medical condition or safety concerns P. Picking up object 88-Not attempted due to medical condition or safety concerns - Bladder and Bowel Bladder continence 1-Stress incontinence only Bowel continence 0-Always continent - Endurance Poor - Balance Poor - Safety Awareness Poor CURRENT FUNC. DEFICITS: Self-Care, Mobility, Endurance, Balance, and Safety Awareness SIGNATURE PANEL: (CDT)
[2020-02-02] MEDS: MAGNESIUM OXIDE 400 MG TAB PO SCH (20:10)
[2020-02-02] MEDS: DOCUSATE NA/SENNA CONC 1 TAB PO PRN (20:11)
[2020-02-02] MEDS: MIRTAZAPINE 15 MG TAB PO SCH (20:11)
[2020-02-02] MEDS: ATORVASTATIN 10 MG TAB PO SCH (20:11)
[2020-02-02] MEDS: DIPHENHYDRAMINE 25 MG TAB/CAP PO PRN (20:12)
[2020-02-02] MEDS: [UNRECOGNIZED DRUG - OTHER] PO SCH (20:49)
--- NOTE | 2020-02-02 23:56 | PN ---
Date of Progress Note: 02/02/2020 Subjective: The patient was seen this morning for followup. No new complaints or problems reported by the patient. Lying in bed, not in distress. Denies any abdominal pain, nausea, or vomiting. Objective: Vital Signs: Reviewed. HEENT: Unremarkable. Lungs: Clear to auscultation. Cardiac: Heart sounds normal. Abdomen: Soft. Bowel sounds normal. No guarding, rigidity, tenderness, or distention. Extremities: No leg edema. Laboratory Data: White count 11.4, hemoglobin 10.5, platelets 206. Sodium 145, potassium 3.4, chlor gennaro 106, bicarb 32, BUN 15, creatinine 0.64, glucose 89. Impression: 1.Parkinson disease. 2.Debility. 3.Generalized weakness. 4.Hypokalemia. Plan: Continue current medication. We will replace potassium per order. Continue physical therapy under guidance of Dr. Cuevas. I will see her tomorrow for followup. LISA/MODL Voice ID: [id number] Report ID: [id number]
[2020-02-03] MEDS: LEVOTHYROXINE SOD 0.125 MG TAB PO SCH (05:08)
[2020-02-03] MEDS: ENOXAPARIN 30 MG/0.3 ML SQ SCH (09:01)
[2020-02-03] MEDS: VITAMIN D 5,000 UNIT CAP PO SCH (09:01)
[2020-02-03] MEDS: CETIRIZINE HCL 5 MG TABLET PO SCH (09:01)
[2020-02-03] MEDS: ALPRAZOLAM 0.25 MG TABLET PO SCH ×3 (09:01→20:34)
[2020-02-03] MEDS: LIDOCAINE 4% PATCH TOP SCH (09:01)
[2020-02-03] MEDS: FORMULATION-R RECTAL 30GM PR PRN (09:01)
[2020-02-03] MEDS: MAGNESIUM OXIDE 400 MG TAB PO SCH ×2 (09:01→20:33)
[2020-02-03] MEDS: TRAMADOL HCL 50 MG TAB PO PRN (09:02)
[2020-02-03] MEDS: OXYBUTYNIN CHLORIDE 5 MG TAB PO SCH ×3 (09:02→20:34)
[2020-02-03] MEDS: predniSONE 5 MG TAB PO SCH (09:02)
[2020-02-03] MEDS: AMLODIPINE 5 MG TAB PO SCH (09:02)
[2020-02-03] MEDS: CARBIDOPA/LEVODOPA 25/100 TAB PO SCH ×3 (09:02→20:33)
[2020-02-03] MEDS: DULOXETINE 30 MG CAP PO SCH ×2 (09:02→20:34)
[2020-02-03] MEDS: [UNRECOGNIZED DRUG - OTHER] PO SCH (09:09)
[2020-02-03] MEDS: PROMOD 30 ML DOSE PO SCH ×2 (09:10→20:34)
--- NOTE | 2020-02-03 09:52 | P.RH.PN ---
Estimated Length of Stay: 14 Expected Discharge Date: 02/10/20 Discharge Disposition Plan: Home Family Support: Yes Mcfp Goal: Mobility, Transfers, Self Care Vital Signs: Last Vital Signs Temp 97.7 F 02/03/20 07:05 Pulse 70 02/03/20 09:02 Resp 18 02/03/20 09:02 BP 147/58 H 02/03/20 09:02 Pulse Ox 93 02/03/20 09:02 Laboratory: Laboratory Last Values WBC 11.4 K/uL (4.3-10.9) H D 02/02/20 05:42 RBC 3.38 M/uL (3.86-4.86) L 02/02/20 05:42 Hgb 10.5 g/dL (12.0-15.0) L 02/02/20 05:42 Hct 31.6 % (36.0-45.0) L 02/02/20 05:42 MCV 93.7 fL (80-100) 02/02/20 05:42 MCH 31.1 pg (27.0-35.0) 02/02/20 05:42 MCHC 33.2 g/dL (32.0-36.0) 02/02/20 05:42 RDW 14.6 % (12.1-15.2) 02/02/20 05:42 Plt Count 206 K/uL (152-406) 02/02/20 05:42 MPV 7.9 fL (7.6-11.3) 02/02/20 05:42 Neutrophils % 51.1 % (41.7-73.7) 02/02/20 05:42 Lymphocytes % 35.1 % (15.3-44.8) 02/02/20 05:42 Monocytes % 12.1 % (3.3-12.3) 02/02/20 05:42 Eosinophils % 1.0 % (0-4.4) 02/02/20 05:42 Basophils % 0.7 % (0-1.3) 02/02/20 05:42 Absolute Neutrophils 5.9 K/uL (1.8-8.0) 02/02/20 05:42 Segmented Neutrophils 54 % (40-80) 01/31/20 06:37 Band Neutrophils 1 % (0-1) 01/31/20 06:37 Absolute Lymphocytes 4.0 K/uL (0.7-4.9) 02/02/20 05:42 Lymphocytes 33 % (15-42) 01/31/20 06:37 Monocytes 9 % (0-10) 01/31/20 06:37 Absolute Monocytes 1.4 K/uL (0.1-1.3) H 02/02/20 05:42 Eosinophils 2 % (0-3) 01/31/20 06:37 Absolute Eosinophils 0.1 K/uL (0-0.5) 02/02/20 05:42 Absolute Basophils 0.1 K/uL (0-0.5) 02/02/20 05:42 Metamyelocytes 1 % (0-0) H 01/31/20 06:37 Myelocytes 1 % (0-0) H 01/29/20 05:26 Giant Platelets Noted 01/29/20 05:26 Morphology Comment Not seen (NOT SEEN) 01/31/20 06:37 Sodium 145 mmol/L (136-145) 02/02/20 05:42 Potassium 3.4 mmol/L (3.5-5.1) L 02/02/20 05:42 Chloride 106 mmol/L (98-107) 02/02/20 05:42 Carbon Dioxide 32 mmol/L (21-32) 02/02/20 05:42 BUN 15 mg/dL (7-18) 02/02/20 05:42 Creatinine 0.64 mg/dL (0.55-1.3) 02/02/20 05:42 Estimated GFR 90 mL/min (=/>90) 02/02/20 05:42 Glucose 89 mg/dL (74-106) 02/02/20 05:42 Calcium 9.1 mg/dL (8.5-10.1) 02/02/20 05:42 Magnesium 2.2 mg/dL (1.8-2.4) 02/02/20 05:42 Albumin 3.3 g/dL (3.4-5.0) L 02/02/20 05:42 Prealbumin 28.0 mg/dL (20-40) 02/02/20 05:42 Urine Color Cancelled 01/28/20 18:41 Urine Appearance Cancelled 01/28/20 18:41 Urine pH Cancelled 01/28/20 18:41 Ur Specific [place] Cancelled 01/28/20 18:41 Glucose (UA)(Auto) Cancelled 01/28/20 18:41 Urine Ketones Cancelled 01/28/20 18:41 Urine Blood Cancelled 01/28/20 18:41 Urine Nitrite Cancelled 01/28/20 18:41 Urine Bilirubin Cancelled 01/28/20 18:41 Urine Urobilinogen Cancelled 01/28/20 18:41 Ur Leukocyte Esterase Cancelled 01/28/20 18:41 Urine RBC Cancelled 01/28/20 18:41 Urine WBC Cancelled 01/28/20 18:41 Ur Squamous Epith Cells Cancelled 01/28/20 18:41 Ur Urothelial Cells Cancelled 01/28/20 18:41 Calcium Oxalate Crystal Cancelled 01/28/20 18:41 Uric Acid Crystals Cancelled 01/28/20 18:41 Triple Phos Crystals Cancelled 01/28/20 18:41 Other Crystals Cancelled 01/28/20 18:41 Amorphous Sediment Cancelled 01/28/20 18:41 Glitter Cells Cancelled 01/28/20 18:41 Urine Bacteria Cancelled 01/28/20 18:41 Hyaline Casts Cancelled 01/28/20 18:41 Fine Granular Casts Cancelled 01/28/20 18:41 Coarse Granular Casts Cancelled 01/28/20 18:41 Waxy Casts Cancelled 01/28/20 18:41 RBC Casts Cancelled 01/28/20 18:41 WBC Casts Cancelled 01/28/20 18:41 Urine Mucus Cancelled 01/28/20 18:41 Urine Other Cancelled 01/28/20 18:41 Urine Trichomonas Cancelled 01/28/20 18:41 Urine Yeast Cancelled 01/28/20 18:41 Ur Yeast w Hyphae Cancelled 01/28/20 18:41 Urine Yeast (Budding) Cancelled 01/28/20 18:41 Urine Sperm Cancelled 01/28/20 18:41 Urine Culture Reflexed Cancelled 01/28/20 18:41 Urine Total Volume Cancelled 01/28/20 18:41 Urine Total Protein Cancelled 01/28/20 18:41 SARS-CoV-2 RNA (RT-PCR) Negative (NEGATIVE) 02/01/20 07:00 Weight: 123 lb Wound Present: No Closed Surgical Incision Present: No Negative Pressure Wound Therapy Present: No Physician Update: Labs reviewed and are stable. She is a minimum assistance to contact guard with her ADLs. She is walking 500' using a rollator with contact guard to minimum assistance. She has a daughter and son-in-law at home 12/01. She may require a outpatient workup for Parkinson's disease. Will not change medication regimin at this time. Her bowel movements are improving. Functional Improvement: Patient has met all short-term goals and is progressing well toward long-term goals. Patient continues to experience bouts of lethargy, and "achy joints and bones". Summary: Patient's care plan and assistant terminal manager goals have been reviewed and revised as necessary. Please see the Rehabilitation Signature page for all necessary signatures.
[2020-02-03] MEDS: IBUPROFEN 400 MG TAB PO PRN (12:26)
[2020-02-03] MEDS: [UNRECOGNIZED DRUG - OTHER] PO SCH ×2 (17:36→20:34)
--- NOTE | 2020-02-03 19:33 | PN ---
Date of Progress Note: 02/03/2020 Subjective: The patient was seen this morning for followup. No new complaints or problems reported by the patient, lying in bed, not in distress. She looks lot better than before. Denies any specifi c complaints. No abdominal pain, nausea, or vomiting. Objective: Vital Signs: Reviewed. HEENT: Unremarkable. Lungs: Clear to auscultation. Cardiac: Heart sounds normal. Abdomen: Soft. Bowel sounds normal. No guarding, rigidity, tenderness, distention. Extremities: No leg edema. Skin: Rash from her lower extremity has resolved. Impression: 1.Generalized weakness. 2.Debility. 3.Parkinson disease. 4.Rash, due to allergic reaction to antibiotic, resolved. Plan: The patient is on prednisone 10 mg daily. We will reduce it to 5 mg daily over the weekend an d hopefully after 2 to 3 days we can discontinue that. Continue other current medical management. T he patient's condition is improving. We will continue to provide physical therapy under guidance of Dr. Cuevsa. Continue current stool softener for her constipation problem. LISA/MODL Voice ID: [id number] Report ID: [id number]
[2020-02-03] MEDS: ATORVASTATIN 10 MG TAB PO SCH (20:34)
[2020-02-03] MEDS: MIRTAZAPINE 15 MG TAB PO SCH (20:35)
[2020-02-03] MEDS: DOCUSATE NA/SENNA CONC 1 TAB PO PRN (20:53)
--- NOTE | 2020-02-04 02:11 | FAST ---
[employer] FORM SHIFT START DATE/TIME: 02/03/2020 19:00 (CDT) SHIFT END DATE/TIME: 02/04/2020 07:00 (CDT) NAME BRENDA TREJO DATE OF : 1940 DATE OF ADMISSION: 01/28/2020 12:37 (CDT) PHONE: AGE: 79 N# [id number] GENDER: Female ENCOUNTER PHYSICIAN: Dr. Fito Cuevas M.D. 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 Parkinsons Exaserbation, Debilitation. EATING: Not assessed/no information CODE: - ORAL HYGIENE: ORAL HYGIENE - STEP 1: Does the patient complete the activity by him/herself with no assistance (physical, verbal/nonverbal cueing, setup/clean-up)? No. ORAL HYGIENE - STEP 2: Does the patient need only setup/clean-up assistance from one helper? No. ORAL HYGIENE - STEP 3: Does the patient need only verbal/nonverbal cueing or touching/steadying/contact guard assistance fro m one helper? Yes. 1. [id number] ADMISSION PERFORMANCE: Supervision or touching assistance CODE: 04 TOILETING HYGIENE: TOILETING HYGIENE - STEP 1: Does the patient complete the activity by him/herself with no assistance (physical, verbal/nonverbal cueing, setup/clean-up)? No. TOILETING HYGIENE - STEP 2: Does the patient need only setup/clean-up assistance from one helper? No. TOILETING HYGIENE - STEP 3: Does the patient need only verbal/nonverbal cueing or touching/steadying/contact guard assistance fro m one helper? Yes. 1. [id number] ADMISSION PERFORMANCE: Supervision or touching assistance CODE: 04 BATHING: Not assessed/no information CODE: - DRESSING - UPPER BODY: Not assessed/no information CODE: - DRESSING - LOWER BODY: Not assessed/no information CODE: - PUTTING ON/TAKING OFF FOOTWEAR: Not assessed/no information CODE: - ROLL LEFT AND RIGHT: ROLL LEFT AND RIGHT - STEP 1: Does the patient complete the activity by him/herself with no assistance (physical, verbal/nonverbal cueing, setup/clean-up)? No. ROLL LEFT AND RIGHT - STEP 2: Does the patient need only setup/clean-up assistance from one helper? No. ROLL LEFT AND RIGHT - STEP 3: Does the patient need only verbal/nonverbal cueing or touching/steadying/contact guard assistance fro m one helper? Yes. 1. [id number] ADMISSION PERFORMANCE: Supervision or touching assistance CODE: 04 SIT TO LYING: SIT TO LYING - STEP 1: Does the patient complete the activity by him/herself with no assistance (physical, verbal/nonverbal cueing, setup/clean-up)? No. SIT TO LYING - STEP 2: Does the patient need only setup/clean-up assistance from one helper? No. SIT TO LYING - STEP 3: Does the patient need only verbal/nonverbal cueing or touching/steadying/contact guard assistance fro m one helper? Yes. 1. [id number] ADMISSION PERFORMANCE: Supervision or touching assistance CODE: 04 LYING TO SITTING: LYING TO SITTING ON SIDE OF BED - STEP 1: Does the patient complete the activity by him/herself with no assistance (physical, verbal/nonverbal cueing, setup/clean-up)? No. LYING TO SITTING ON SIDE OF BED - STEP 2: Does the patient need only setup/clean-up assistance from one helper? No. LYING TO SITTING ON SIDE OF BED - STEP 3: Does the patient need only verbal/nonverbal cueing or touching/steadying/contact guard assistance fro m one helper? Yes. 1. [id number] ADMISSION PERFORMANCE: Supervision or touching assistance CODE: 04 SIT TO STAND: SIT TO STAND - STEP 1: Does the patient complete the activity by him/herself with no assistance (physical, verbal/nonverbal cueing, setup/clean-up)? No. SIT TO STAND - STEP 2: Does the patient need only setup/clean-up assistance from one helper? No. SIT TO STAND - STEP 3: Does the patient need only verbal/nonverbal cueing or touching/steadying/contact guard assistance fro m one helper? Yes. 1. [id number] ADMISSION PERFORMANCE: Supervision or touching assistance CODE: 04 TRANSFERS: BED, CHAIR: CHAIR/[id number] TRANSFER - STEP 1: Does the patient complete the activity by him/herself with no assistance (physical, verbal/nonverbal cueing, setup/clean-up)? No. CHAIR/[id number] TRANSFER - STEP 2: Does the patient need only setup/clean-up assistance from one helper? No. CHAIR/[id number] TRANSFER - STEP 3: Does the patient need only verbal/nonverbal cueing or touching/steadying/contact guard assistance fro m one helper? Yes. 1. [id number] ADMISSION PERFORMANCE: Supervision or touching assistance CODE: 04 TRANSFER TOILET: TOILET TRANSFER - STEP 1: Does the patient complete the activity by him/herself with no assistance (physical, verbal/nonverbal cueing, setup/clean-up)? No. TOILET TRANSFER - STEP 2: Does the patient need only setup/clean-up assistance from one helper? No. TOILET TRANSFER - STEP 3: Does the patient need only verbal/nonverbal cueing or touching/steadying/contact guard assistance fro m one helper? Yes. 1. [id number] ADMISSION PERFORMANCE: Supervision or touching assistance CODE: 04 TRANSFERS: CAR: Not assessed/no information CODE: - WALK 10 FEET: Not assessed/no information CODE: - 1 STEP (CURB): Not assessed/no information CODE: - PICKING UP OBJECT: Not assessed/no information CODE: - DOES THE PATIENT USE A WHEELCHAIR/SCOOTER? CODE: EXPR WHEEL 50 FEET WITH TWO TURNS: Not assessed/no information CODE: - INDICATE THE TYPE OF WHEELCHAIR/SCOOTER USED: CODE: EXPR WHEEL 150 FEET: Not assessed/no information CODE: - INDICATE THE TYPE OF WHEELCHAIR/SCOOTER USED: CODE: EXPR BLADDER AND BOWEL: H350. BLADDER CONTINENCE (3-DAY ASSESSMENT PERIOD): Incontinent less than daily (e.g., once or twice during the 3-day assessment period) CODE: 2 H400. BOWEL CONTINENCE (3-DAY ASSESSMENT PERIOD): Always continent CODE: 0
[2020-02-04] MEDS: TRAMADOL HCL 50 MG TAB PO PRN ×3 (03:59→20:38)
[2020-02-04] MEDS: LEVOTHYROXINE SOD 0.125 MG TAB PO SCH (05:00)
[2020-02-04 05:31] VITALS: BMI 21.7
[2020-02-04] MEDS: [UNRECOGNIZED DRUG - OTHER] PO SCH ×4 (07:18→20:27)
[2020-02-04] MEDS: LIDOCAINE 4% PATCH TOP SCH (07:18)
[2020-02-04] MEDS: ENOXAPARIN 30 MG/0.3 ML SQ SCH (07:18)
[2020-02-04] MEDS: ALPRAZOLAM 0.25 MG TABLET PO SCH ×3 (08:31→20:25)
[2020-02-04] MEDS: CETIRIZINE HCL 5 MG TABLET PO SCH (08:32)
[2020-02-04] MEDS: AMLODIPINE 5 MG TAB PO SCH (08:33)
[2020-02-04] MEDS: MAGNESIUM OXIDE 400 MG TAB PO SCH ×2 (08:33→20:25)
[2020-02-04] MEDS: VITAMIN D 5,000 UNIT CAP PO SCH (08:33)
[2020-02-04] MEDS: DULOXETINE 30 MG CAP PO SCH ×2 (08:33→20:25)
[2020-02-04] MEDS: PROMOD 30 ML DOSE PO SCH ×2 (08:33→20:27)
[2020-02-04] MEDS: predniSONE 5 MG TAB PO SCH (08:33)
[2020-02-04] MEDS: CARBIDOPA/LEVODOPA 25/100 TAB PO SCH ×3 (08:33→20:29)
[2020-02-04] MEDS: OXYBUTYNIN CHLORIDE 5 MG TAB PO SCH ×3 (08:33→20:25)
--- NOTE | 2020-02-04 09:52 | PN ---
Date of Progress Note: 02/04/2020 Subjective: The patient was seen this morning for followup. She was lying in bed, not in distress. Objective: Vital Signs: Reviewed. HEENT: Unremarkable. Lungs: Clear to auscultation. Heart: Sounds normal. Abdomen: Soft. Bowel sounds normal. No guarding, rigidity, tenderness, distention. Extremities: No leg edema. Skin: Rash has resolved from both lower extremities. Impression: 1.Parkinson disease. 2.Generalized weakness. 3.Debility. 4.Chronic constipation. Plan: We will go ahead and continue current medications. Continue physical therapy under guidance o glenn Cuevas. Continue current DVT prophylaxis and reduce prednisone dose per order. LISA/MODL Voice ID: [id number] Report ID: [id number]
[2020-02-04] MEDS: IBUPROFEN 400 MG TAB PO PRN (10:06)
[2020-02-04] MEDS: MAGNES/ALUMIN/SIMET 30ML UCUP PO PRN (11:01)
[2020-02-04] MEDS: DIPHENHYDRAMINE 25 MG TAB/CAP PO PRN (16:30)
[2020-02-04] MEDS ORDERED: DIPHENHYDRAMINE 25 MG TAB/CAP ONE (16:38)
[2020-02-04] MEDS: ATORVASTATIN 10 MG TAB PO SCH (20:25)
[2020-02-04] MEDS: MIRTAZAPINE 15 MG TAB PO SCH (20:25)
[2020-02-04] MEDS: DOCUSATE NA/SENNA CONC 1 TAB PO PRN (20:54)
[2020-02-05] MEDS: LEVOTHYROXINE SOD 0.125 MG TAB PO SCH (05:04)
[2020-02-05] MEDS: [UNRECOGNIZED DRUG - OTHER] PO SCH ×4 (07:30→20:02)
[2020-02-05] MEDS: LIDOCAINE 4% PATCH TOP SCH (08:26)
[2020-02-05] MEDS: CETIRIZINE HCL 5 MG TABLET PO SCH (08:27)
[2020-02-05] MEDS: CARBIDOPA/LEVODOPA 25/100 TAB PO SCH ×3 (08:27→20:01)
[2020-02-05] MEDS: ALPRAZOLAM 0.25 MG TABLET PO SCH ×3 (08:27→20:01)
[2020-02-05] MEDS: ENOXAPARIN 30 MG/0.3 ML SQ SCH (08:27)
[2020-02-05] MEDS: OXYBUTYNIN CHLORIDE 5 MG TAB PO SCH ×3 (08:28→20:01)
[2020-02-05] MEDS: MAGNESIUM OXIDE 400 MG TAB PO SCH ×2 (08:28→19:36)
[2020-02-05] MEDS: AMLODIPINE 5 MG TAB PO SCH (08:28)
[2020-02-05] MEDS: VITAMIN D 5,000 UNIT CAP PO SCH (08:28)
[2020-02-05] MEDS: predniSONE 5 MG TAB PO SCH (08:28)
[2020-02-05] MEDS: FORMULATION-R RECTAL 30GM PR PRN (08:29)
[2020-02-05] MEDS: TRAMADOL HCL 50 MG TAB PO PRN ×2 (08:29→19:35)
[2020-02-05] MEDS: DULOXETINE 30 MG CAP PO SCH ×2 (08:29→19:36)
[2020-02-05] MEDS: PROMOD 30 ML DOSE PO SCH ×2 (09:15→19:36)
[2020-02-05] MEDS: IBUPROFEN 400 MG TAB PO PRN (13:45)
--- NOTE | 2020-02-05 13:56 | FAST ---
[employer] FORM SHIFT START DATE/TIME: 02/05/2020 07:00 (CDT) SHIFT END DATE/TIME: 02/05/2020 19:00 (CDT) NAME BRENDA TREJO DATE OF : 1940 DATE OF ADMISSION: 01/28/2020 12:37 (CDT) PHONE: AGE: 79 N# [id number] GENDER: Female ENCOUNTER PHYSICIAN: Dr. Fito Cuevas M.D. 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 Parkinsons Exaserbation, Debilitation. EATING: EATING - STEP 1: Does the patient complete the activity by him/herself with no assistance (physical, verbal/nonverbal cueing, setup/clean-up)? No. EATING - STEP 2: Does the patient need only setup/clean-up assistance from one helper? Yes. 1. [id number] ADMISSION PERFORMANCE: Setup or clean-up assistance CODE: 05 ORAL HYGIENE: ORAL HYGIENE - STEP 1: Does the patient complete the activity by him/herself with no assistance (physical, verbal/nonverbal cueing, setup/clean-up)? No. ORAL HYGIENE - STEP 2: Does the patient need only setup/clean-up assistance from one helper? No. ORAL HYGIENE - STEP 3: Does the patient need only verbal/nonverbal cueing or touching/steadying/contact guard assistance fro m one helper? Yes. 1. [id number] ADMISSION PERFORMANCE: Supervision or touching assistance CODE: 04 TOILETING HYGIENE: TOILETING HYGIENE - STEP 1: Does the patient complete the activity by him/herself with no assistance (physical, verbal/nonverbal cueing, setup/clean-up)? No. TOILETING HYGIENE - STEP 2: Does the patient need only setup/clean-up assistance from one helper? No. TOILETING HYGIENE - STEP 3: Does the patient need only verbal/nonverbal cueing or touching/steadying/contact guard assistance fro m one helper? Yes. 1. [id number] ADMISSION PERFORMANCE: Supervision or touching assistance CODE: 04 BATHING: Not assessed/no information CODE: - DRESSING - UPPER BODY: DRESSING - UPPER BODY - STEP 1: Does the patient complete the activity by him/herself with no assistance (physical, verbal/nonverbal cueing, setup/clean-up)? No. DRESSING - UPPER BODY - STEP 2: Does the patient need only setup/clean-up assistance from one helper? No. DRESSING - UPPER BODY - STEP 3: Does the patient need only verbal/nonverbal cueing or touching/steadying/contact guard assistance fro m one helper? No. DRESSING - UPPER BODY - STEP 4: Does the patient need physical assistance - for example lifting or trunk support from one helper - wi th the helper providing less than half of the effort? Yes. 1. [id number] ADMISSION PERFORMANCE: Partial/moderate assistance CODE: 03 DRESSING - LOWER BODY: DRESSING - LOWER BODY - STEP 1: Does the patient complete the activity by him/herself with no assistance (physical, verbal/nonverbal cueing, setup/clean-up)? No. DRESSING - LOWER BODY - STEP 2: Does the patient need only setup/clean-up assistance from one helper? No. DRESSING - LOWER BODY - STEP 3: Does the patient need only verbal/nonverbal cueing or touching/steadying/contact guard assistance fro m one helper? No. DRESSING - LOWER BODY - STEP 4: Does the patient need physical assistance - for example lifting or trunk support from one helper - wi th the helper providing less than half of the effort? Yes. 1. [id number] ADMISSION PERFORMANCE: Partial/moderate assistance CODE: 03 PUTTING ON/TAKING OFF FOOTWEAR: FOOTWEAR - STEP 1: Does the patient complete the activity by him/herself with no assistance (physical, verbal/nonverbal cueing, setup/clean-up)? No. FOOTWEAR - STEP 2: Does the patient need only setup/clean-up assistance from one helper? No. FOOTWEAR - STEP 3: Does the patient need only verbal/nonverbal cueing or touching/steadying/contact guard assistance fro m one helper? No. FOOTWEAR - STEP 4: Does the patient need physical assistance - for example lifting or trunk support from one helper - wi th the helper providing less than half of the effort? Yes. 1. [id number] ADMISSION PERFORMANCE: Partial/moderate assistance CODE: 03 SIT TO LYING: SIT TO LYING - STEP 1: Does the patient complete the activity by him/herself with no assistance (physical, verbal/nonverbal cueing, setup/clean-up)? No. SIT TO LYING - STEP 2: Does the patient need only setup/clean-up assistance from one helper? No. SIT TO LYING - STEP 3: Does the patient need only verbal/nonverbal cueing or touching/steadying/contact guard assistance fro m one helper? Yes. 1. [id number] ADMISSION PERFORMANCE: Supervision or touching assistance CODE: 04 LYING TO SITTING: LYING TO SITTING ON SIDE OF BED - STEP 1: Does the patient complete the activity by him/herself with no assistance (physical, verbal/nonverbal cueing, setup/clean-up)? No. LYING TO SITTING ON SIDE OF BED - STEP 2: Does the patient need only setup/clean-up assistance from one helper? No. LYING TO SITTING ON SIDE OF BED - STEP 3: Does the patient need only verbal/nonverbal cueing or touching/steadying/contact guard assistance fro m one helper? Yes. 1. [id number] ADMISSION PERFORMANCE: Supervision or touching assistance CODE: 04 SIT TO STAND: SIT TO STAND - STEP 1: Does the patient complete the activity by him/herself with no assistance (physical, verbal/nonverbal cueing, setup/clean-up)? No. SIT TO STAND - STEP 2: Does the patient need only setup/clean-up assistance from one helper? No. SIT TO STAND - STEP 3: Does the patient need only verbal/nonverbal cueing or touching/steadying/contact guard assistance fro m one helper? Yes. 1. [id number] ADMISSION PERFORMANCE: Supervision or touching assistance CODE: 04 TRANSFERS: BED, CHAIR: CHAIR/[id number] TRANSFER - STEP 1: Does the patient complete the activity by him/herself with no assistance (physical, verbal/nonverbal cueing, setup/clean-up)? No. CHAIR/[id number] TRANSFER - STEP 2: Does the patient need only setup/clean-up assistance from one helper? No. CHAIR/[id number] TRANSFER - STEP 3: Does the patient need only verbal/nonverbal cueing or touching/steadying/contact guard assistance fro m one helper? Yes. 1. [id number] ADMISSION PERFORMANCE: Supervision or touching assistance CODE: 04 TRANSFER TOILET: TOILET TRANSFER - STEP 1: Does the patient complete the activity by him/herself with no assistance (physical, verbal/nonverbal cueing, setup/clean-up)? No. TOILET TRANSFER - STEP 2: Does the patient need only setup/clean-up assistance from one helper? No. TOILET TRANSFER - STEP 3: Does the patient need only verbal/nonverbal cueing or touching/steadying/contact guard assistance fro m one helper? Yes. 1. [id number] ADMISSION PERFORMANCE: Supervision or touching assistance CODE: 04 TRANSFERS: CAR: Not assessed/no information CODE: - WALK 10 FEET: Not assessed/no information CODE: - 1 STEP (CURB): Not assessed/no information CODE: - PICKING UP OBJECT: Not assessed/no information CODE: - DOES THE PATIENT USE A WHEELCHAIR/SCOOTER? Q1. DOES THE PATIENT USE A WHEELCHAIR/SCOOTER?: Yes CODE: 1 WHEEL 50 FEET WITH TWO TURNS: WHEEL 50 FEET WITH TWO TURNS - STEP 1: Does the patient complete the activity by him/herself with no assistance (physical, verbal/nonverbal cueing, setup/clean-up)? No. WHEEL 50 FEET WITH TWO TURNS - STEP 2: Does the patient need only setup/clean-up assistance from one helper? No. WHEEL 50 FEET WITH TWO TURNS - STEP 3: Does the patient need only verbal/nonverbal cueing or touching/steadying/contact guard assistance fro m one helper? Yes. 1. [id number] ADMISSION PERFORMANCE: Supervision or touching assistance CODE: 04 INDICATE THE TYPE OF WHEELCHAIR/SCOOTER USED: RR1. INDICATE THE TYPE OF WHEELCHAIR/SCOOTER USED.: Manual CODE: 1 WHEEL 150 FEET: Not assessed/no information CODE: - INDICATE THE TYPE OF WHEELCHAIR/SCOOTER USED: SS1. INDICATE THE TYPE OF WHEELCHAIR/SCOOTER USED.: Manual CODE: 1 BLADDER AND BOWEL: H350. BLADDER CONTINENCE (3-DAY ASSESSMENT PERIOD): Always incontinent CODE: 4 H400. BOWEL CONTINENCE (3-DAY ASSESSMENT PERIOD): Always continent CODE: 0 SIGNATURE PANEL: The following modified sections: 1. [id number] Admission Performance, 1. [id number] Admission Performance, 1. FV0524i Admission Performance, 1. RW4985w Admission Performance, 1. LF3947f Admission Performance, 1. KW2759m Admission Performance, 1. DQ0372I Admission Performance, 1. LY7710P Admission Performance , 1. QC9383N Admission Performance, 1. QN7840S Admission Performance, 1. [id number] Admission Performanc e, Q1. Does the patient use a wheelchair/scooter?, 1. PO5430x Admission Performance, 1. OF1766j Admis jimmy Performance, 1. UL7078A Admission Performance, 1. MO9212D Admission Performance, RR1. Indicate t he type of wheelchair/scooter used., Code, SS1. Indicate the type of wheelchair/scooter used., H350. Bladder Continence (3-day assessment period), H400. Bowel Continence (3-day assessment period), 1. GG 0130B Admission Performance, 1. UF4373l Admission Performance were [electronically] signed by Catherine CostelloNKyaw on ThuFeb 05 2020 13:55:25 GMT-0500 (Central Daylight Time)
[2020-02-05] MEDS: DOCUSATE NA/SENNA CONC 1 TAB PO PRN (19:37)
[2020-02-05] MEDS: MIRTAZAPINE 15 MG TAB PO SCH (20:01)
[2020-02-05] MEDS: ATORVASTATIN 10 MG TAB PO SCH (20:01)
[2020-02-05] MEDS: DIPHENHYDRAMINE 25 MG TAB/CAP PO PRN (20:20)
[2020-02-06] MEDS: LEVOTHYROXINE SOD 0.125 MG TAB PO SCH (05:02)
[2020-02-06] MEDS: [UNRECOGNIZED DRUG - OTHER] PO SCH ×4 (07:08→20:29)
[2020-02-06] MEDS: ENOXAPARIN 30 MG/0.3 ML SQ SCH (07:08)
[2020-02-06] MEDS: TRAMADOL HCL 50 MG TAB PO PRN ×2 (07:14→12:49)
[2020-02-06] MEDS: CETIRIZINE HCL 5 MG TABLET PO SCH (07:36)
[2020-02-06] MEDS: ALPRAZOLAM 0.25 MG TABLET PO SCH ×3 (07:36→20:30)
[2020-02-06] MEDS: PROMOD 30 ML DOSE PO SCH (07:36)
[2020-02-06] MEDS: DULOXETINE 30 MG CAP PO SCH ×2 (07:37→19:33)
[2020-02-06] MEDS: OXYBUTYNIN CHLORIDE 5 MG TAB PO SCH ×3 (07:37→20:30)
[2020-02-06] MEDS: AMLODIPINE 5 MG TAB PO SCH (07:37)
[2020-02-06] MEDS: CARBIDOPA/LEVODOPA 25/100 TAB PO SCH ×3 (07:38→20:30)
[2020-02-06] MEDS: VITAMIN D 5,000 UNIT CAP PO SCH (07:38)
[2020-02-06] MEDS: MAGNESIUM OXIDE 400 MG TAB PO SCH ×2 (07:38→19:35)
[2020-02-06] MEDS: predniSONE 5 MG TAB PO SCH (07:39)
[2020-02-06] MEDS: LIDOCAINE 4% PATCH TOP SCH (09:06)
--- NOTE | 2020-02-06 18:35 | R.PN ---
PROGRESS NOTES ENCOUNTER DATE AND TIME: 02/06/2020 18:33 (CDT) NAME BRENDA TREJO DATE OF : 1940 DATE OF ADMISSION: 01/28/2020 12:37 (CDT) Parkinson's disease (G20)Parkinsons Exaserbation, DebilitationCHIEF COMPLAINT: Parkinson's disease and debility. SUBJECTIVE: Pt denied any depression. Pt denied any Shortness of Breath. WBC is chronically elevated to 11.4 secondary to leukocytosis. Her electrolytes are essentially nick l except for mildly low potassium of 3.4. Prealbumin 28.0. Her UA is normal. She is followed by Dr. Bird. She ambulated 1000' with standby assistance using a rolling walker. Up and down 15 steps using bilate ral handrails and contact guard assistance. VITAL SIGNS Temperature: 97.8 F SBP/DBP: 140/63 Pulse: 69 Resp: 16 MEDICATION ALLERGIES: AZITHROMYCIN CODEINE PENTAZOCINE ENVIRONMENTAL ALLERGIES: BANANA - Substance Allergies None Known - Other Allergies None Known CONSULT: Perform Neuro consult NURSING: - Shower allowing shower ACTIVITIES OOB only with supervision THERAPIES: - Dietary and Nutrition Adequate Nutrition. Nutritional Education. Nutritional Supplements. - Speech Therapy Memory Strategies. Speech Intelligibility Training. PHYSICAL EXAM - Gen Alert and awake Lying in bed No apparent distress Oriented to: person, time, and place - Skin No skin breakdown. No abnormalities - Eyes No abnormalities - ENMT No abnormalities - Neck No abnormalities - CVS RRR - Chest No abnormalities - Resp Clear to auscultation - Abd Soft - GI Non distended Deferred - No abnormalities - Ext Mild bilateral lower extremity edema. - MSK 4+/5 weakness in both lower extremities. - Neuro No focal deficits - Psych No abnormalities ASSESSMENT: Pt. is a 79 yo Right-handed white female.On 01/25/2020 she was admitted to [facility] with d iagnosis Parkinson's disease (G20).Her impairment category is Neurologic Conditions 03 - Parkinsonis m (03.2).Pre-morbidly, Pt. was independent/mod-I in Transfers Control, Locomotion, and Self-Care; and she had good Balance, Safety Awareness, Social Cognition, and Communication.Currently, she has defic its of Transfers Control, Locomotion, Balance, Safety Awareness, and Self-Care.Pt. is now referred to [facility] for acute in-patient rehabilitation in order to maximize patient's functional independence in activities of daily living, strength, ROM, and mobility.- Rehab Goal Patient has realistic goal of being discharged at assistance level 6-Amanda to reside at Home with Ines rivera. MDM/PLAN: - Physical Therapy Gait dysfunction - to improve, our physical therapists will perform initial evaluation of pt's statu s upon admission and devise an individualized program for Gait Training, and Wheel Chair mobility Inability to transfer - to improve, our physical therapists will perform initial evaluation of pt's status upon admission and devise an individualized program for Bed mobility Need for home safety evaluation - to improve, our physical therapists will perform initial evaluatio n of pt's status upon admission and devise an individualized program for Home Evaluation Need in caregiver upon discharge - to improve, our physical therapists will perform initial evaluati on of pt's status upon admission and devise an individualized program for Caregiver Training New precaution - to improve, our physical therapists will perform initial evaluation of pt's status upon admission and devise an individualized program for Patient precaution education Poor balance - to improve, our physical therapists will perform initial evaluation of pt's status up on admission and devise an individualized program for Balance Training Weakness - to improve, our physical therapists will perform initial evaluation of pt's status upon a dmission and devise an individualized program for Aquatic Therapy, Neuromuscular Reeducation, and Str engthening Achieving independence - to improve, our physical therapists will perform initial evaluation of pt's status upon admission and devise an individualized program for Community Reintegration Activities - Occupational Therapy ADL deficits - to improve, our occupation therapists will perform initial evaluation of pt's status upon admission and devise an individualized program for Bathing, Bed mobility, Community Reintegratio n, Cooking, Dressing, Eating, Fine Motor Skills, Grooming, Homemaking, Kitchen Mobility, Laundry, Pat ient Education, Safety Awareness, Splinting - Positioning, Transfers(Toilet, Tub, Shower), and Wheel Chair Management Need for outdoor emergency care technician - to improve, our occupation therapists will perform initial evaluation of pt's status upon admission and devise an individualized program for Caregiver Training Weakness - to improve, our occupation therapists will perform initial evaluation of pt's status upon admission and devise an individualized program for Aquatic Therapy, Balance, Endurance, UE ROM, and UE strengthening - N/A See attached MAR (Medication Administration Record) Perform Neuro consult - Diet Type Continue Regular - Diet - Liquid Texture Continue Regular - Tube Feed Continue N/A - Diet - Solid Texture Continue Regular - Shower allowing shower FUNCTIONAL STATUS: UPDATED AT WEEKLY TEAM CONFERENCE - Walking Same score based on distance walked: 1(<=50ft) - Wheelchair Same score based on distance traveled: 0(N/A) FUNCTIONAL STATUS: - Self-Care A. Eating Amanda B. Grooming Amanda C. Bathing sup D. Dressing - Upper sup E. Dressing - Lower Patrick F. Toileting Patrick - Sphincter Control G. Bladder control sup H. Bowel control sup - Transfers Control I. Bed/Chair/Wheelchair Patrick J. Toilet Patrick K. Tub/Shower Patrick - Locomotion L. Walk/Wheelchair (B) Patrick M. Stairs maxA - Communication N. Comprehension (B) Amanda O. Expression (B) Amanda - Social Cognition P. Social Interaction Amanda Q. Problem Solving Amanda R. Memory Amanda - Endurance Fair - Balance Fair - Safety Awareness Fair QI SCORES: - Self-Care A. Eating 05-Setup or clean-up assistance B. Oral hygiene 05-Setup or clean-up assistance C. Toileting hygiene 03-Partial/moderate assistance E. Shower/bathe self 03-Partial/moderate assistance F. Upper body dressing G. Lower body dressing H. Putting on/taking off footwear - Mobility A. Roll left and right 03-Partial/moderate assistance B. Sit to lying 03-Partial/moderate assistance C. Lying to sitting on side of bed 03-Partial/moderate assistance D. Sit to stand 03-Partial/moderate assistance E. Chair/[id number] transfer 03-Partial/moderate assistance F. Toilet transfer 03-Partial/moderate assistance G. Car transfer 88-Not attempted due to medical condition or safety concerns I. Walk 10 feet 03-Partial/moderate assistance J. Walk 50 feet with two turns 88-Not attempted due to medical condition or safety concerns K. Walk 150 feet 88-Not attempted due to medical condition or safety concerns L. Walking 10 feet on uneven surfaces 88-Not attempted due to medical condition or safety concerns M. 1 step (curb) 88-Not attempted due to medical condition or safety concerns N. 4 steps 88-Not attempted due to medical condition or safety concerns O. 12 steps 88-Not attempted due to medical condition or safety concerns P. Picking up object 88-Not attempted due to medical condition or safety concerns - Bladder and Bowel Bladder continence 1-Stress incontinence only Bowel continence 0-Always continent - Endurance Poor - Balance Poor - Safety Awareness Poor CURRENT FUNC. DEFICITS: Self-Care, Mobility, Endurance, Balance, and Safety Awareness SIGNATURE PANEL: (CDT)
[2020-02-06] MEDS: IBUPROFEN 400 MG TAB PO PRN (19:32)
[2020-02-06] MEDS: DIPHENHYDRAMINE 25 MG TAB/CAP PO PRN (19:33)
[2020-02-06] MEDS: DOCUSATE NA/SENNA CONC 1 TAB PO PRN (19:34)
[2020-02-06] MEDS: ATORVASTATIN 10 MG TAB PO SCH (20:29)
[2020-02-06] MEDS: MIRTAZAPINE 15 MG TAB PO SCH (20:30)
--- NOTE | 2020-02-07 00:54 | PN ---
Date of Progress Note: 02/06/2020 Subjective: The patient was seen this morning for followup. Lying in bed. Not in distress. Objective: Vital Signs: Reviewed. HEENT: Unremarkable. Lungs: Clear to auscultation. Heart: Sounds normal. Abdomen: Soft. Bowel sounds normal. No guarding, rigidity, tenderness, or distention. Extremities: No leg edema. Skin: No rash. Impression: 1.Parkinson disease. 2.Generalized weakness. 3.Debility. 4.Constipation. Plan: We will continue current medications. Continue current DVT prophylaxis. Continue current kala atment for constipation and physical therapy to be provided under guidance of Dr. Cuevas. She is o n prednisone 5 mg and in next couple of days, we will consider to stop it. LISA/MODL Voice ID: [id number] Report ID: [id number]
[2020-02-07] MEDS: IBUPROFEN 400 MG TAB PO PRN ×3 (05:01→20:09)
[2020-02-07] MEDS: LEVOTHYROXINE SOD 0.125 MG TAB PO SCH (05:01)
[2020-02-07] MEDS: ENOXAPARIN 30 MG/0.3 ML SQ SCH (07:16)
[2020-02-07] MEDS: [UNRECOGNIZED DRUG - OTHER] PO SCH ×4 (07:30→17:34)
[2020-02-07] MEDS: LIDOCAINE 4% PATCH TOP SCH ×2 (08:16→15:27)
[2020-02-07] MEDS: ALPRAZOLAM 0.25 MG TABLET PO SCH ×3 (08:17→20:08)
[2020-02-07] MEDS: VITAMIN D 5,000 UNIT CAP PO SCH (08:17)
[2020-02-07] MEDS: DULOXETINE 30 MG CAP PO SCH ×2 (08:17→20:08)
[2020-02-07] MEDS: CETIRIZINE HCL 5 MG TABLET PO SCH (08:17)
[2020-02-07] MEDS: OXYBUTYNIN CHLORIDE 5 MG TAB PO SCH ×3 (08:17→20:09)
[2020-02-07] MEDS: CARBIDOPA/LEVODOPA 25/100 TAB PO SCH ×3 (08:17→20:09)
[2020-02-07] MEDS: MAGNESIUM OXIDE 400 MG TAB PO SCH ×2 (08:18→20:09)
[2020-02-07] MEDS: predniSONE 5 MG TAB PO SCH (08:19)
[2020-02-07] MEDS: TRAMADOL HCL 50 MG TAB PO PRN ×2 (08:19→15:02)
[2020-02-07] MEDS: AMLODIPINE 5 MG TAB PO SCH (08:20)
[2020-02-07] MEDS: DIPHENHYDRAMINE 25 MG TAB/CAP PO PRN (20:08)
[2020-02-07] MEDS: MIRTAZAPINE 15 MG TAB PO SCH (20:08)
[2020-02-07] MEDS: ATORVASTATIN 10 MG TAB PO SCH (20:09)
[2020-02-07] MEDS: DOCUSATE NA/SENNA CONC 1 TAB PO PRN (20:09)
--- NOTE | 2020-02-07 21:58 | PN ---
Date of Progress Note: 02/07/2020 Subjective: The patient was seen this morning for followup, lying in bed, not in distress. No new c omplaints or problems reported by her. Objective: Vital Signs: Reviewed. HEENT: Unremarkable. Lungs: Clear to auscultation. Heart: Sounds normal. Abdomen: Soft. Bowel sounds normal. No guarding, rigidity, tenderness, or distention. Extremities: No leg edema. Impression: 1.Parkinson disease. 2.Debility. 3.Generalized weakness. 4.Constipation. Plan: We will continue current medication. Her rash from both lower legs has completely resolved. We will discontinue prednisone probably starting tomorrow. Continue the current medications. Yo charles is well controlled. I will see her tomorrow for followup. LISA/MODL Voice ID: [id number] Report ID: [id number]
[2020-02-08] MEDS: LEVOTHYROXINE SOD 0.125 MG TAB PO SCH (05:07)
[2020-02-08] MEDS: ENOXAPARIN 30 MG/0.3 ML SQ SCH (06:51)
[2020-02-08] MEDS: IBUPROFEN 400 MG TAB PO PRN (07:28)
[2020-02-08] MEDS: [UNRECOGNIZED DRUG - OTHER] PO SCH ×6 (07:29→20:07)
[2020-02-08] MEDS: MAGNES/ALUMIN/SIMET 30ML UCUP PO PRN ×3 (07:55→19:05)
[2020-02-08] MEDS: OXYBUTYNIN CHLORIDE 5 MG TAB PO SCH ×3 (07:56→20:05)
[2020-02-08] MEDS: CETIRIZINE HCL 5 MG TABLET PO SCH (07:56)
[2020-02-08] MEDS: DULOXETINE 30 MG CAP PO SCH ×2 (07:57→20:05)
[2020-02-08] MEDS: ALPRAZOLAM 0.25 MG TABLET PO SCH ×3 (07:57→20:05)
[2020-02-08] MEDS: VITAMIN D 5,000 UNIT CAP PO SCH (07:57)
[2020-02-08] MEDS: MAGNESIUM OXIDE 400 MG TAB PO SCH ×2 (07:57→20:06)
[2020-02-08] MEDS: AMLODIPINE 5 MG TAB PO SCH (07:57)
[2020-02-08] MEDS: CARBIDOPA/LEVODOPA 25/100 TAB PO SCH ×3 (07:58→20:06)
[2020-02-08] MEDS: predniSONE 5 MG TAB PO SCH (08:00)
[2020-02-08] MEDS: LIDOCAINE 4% PATCH TOP SCH (11:04)
[2020-02-08] MEDS: TRAMADOL HCL 50 MG TAB PO PRN ×2 (11:54→20:08)
--- NOTE | 2020-02-08 14:00 | FAST ---
OT QI REPORT FORM ENCOUNTER DATE AND TIME: 02/08/2020 08:00 (CDT) NAME BRENDA TREJO DATE OF : 1940 DATE OF ADMISSION: 01/28/2020 12:37 (CDT) PHONE: AGE: 79 N# [id number] GENDER: Female ENCOUNTER PHYSICIAN: Dr. Fito Cuevas M.D. 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 Parkinsons Exaserbation, Debilitation. EATING: Not assessed/no information CODE: - ORAL HYGIENE: ORAL HYGIENE - STEP 1: Does the patient complete the activity by him/herself with no assistance (physical, verbal/nonverbal cueing, setup/clean-up)? Yes. 1. [id number] ADMISSION PERFORMANCE: Independent CODE: 06 TOILETING HYGIENE: Not assessed/no information CODE: - BATHING: SHOWER/BATHE SELF - STEP 1: Does the patient complete the activity by him/herself with no assistance (physical, verbal/nonverbal cueing, setup/clean-up)? No. SHOWER/BATHE SELF - STEP 2: Does the patient need only setup/clean-up assistance from one helper? No. SHOWER/BATHE SELF - STEP 3: Does the patient need only verbal/nonverbal cueing or touching/steadying/contact guard assistance fro m one helper? Yes. 1. [id number] ADMISSION PERFORMANCE: Supervision or touching assistance CODE: 04 DRESSING - UPPER BODY: DRESSING - UPPER BODY - STEP 1: Does the patient complete the activity by him/herself with no assistance (physical, verbal/nonverbal cueing, setup/clean-up)? No. DRESSING - UPPER BODY - STEP 2: Does the patient need only setup/clean-up assistance from one helper? No. DRESSING - UPPER BODY - STEP 3: Does the patient need only verbal/nonverbal cueing or touching/steadying/contact guard assistance fro m one helper? Yes. 1. [id number] ADMISSION PERFORMANCE: Supervision or touching assistance CODE: 04 DRESSING - LOWER BODY: DRESSING - LOWER BODY - STEP 1: Does the patient complete the activity by him/herself with no assistance (physical, verbal/nonverbal cueing, setup/clean-up)? No. DRESSING - LOWER BODY - STEP 2: Does the patient need only setup/clean-up assistance from one helper? No. DRESSING - LOWER BODY - STEP 3: Does the patient need only verbal/nonverbal cueing or touching/steadying/contact guard assistance fro m one helper? Yes. 1. [id number] ADMISSION PERFORMANCE: Supervision or touching assistance CODE: 04 PUTTING ON/TAKING OFF FOOTWEAR: FOOTWEAR - STEP 1: Does the patient complete the activity by him/herself with no assistance (physical, verbal/nonverbal cueing, setup/clean-up)? No. FOOTWEAR - STEP 2: Does the patient need only setup/clean-up assistance from one helper? No. FOOTWEAR - STEP 3: Does the patient need only verbal/nonverbal cueing or touching/steadying/contact guard assistance fro m one helper? Yes. 1. ADMISSION PERFORMANCE: Supervision or touching assistance CODE: 04 DOES THE PATIENT USE A WHEELCHAIR/SCOOTER? CODE: EXPR INDICATE THE TYPE OF WHEELCHAIR/SCOOTER USED: CODE: EXPR INDICATE THE TYPE OF WHEELCHAIR/SCOOTER USED: CODE: EXPR BLADDER AND BOWEL: CODE: EXPR CODE: EXPR SIGNATURE PANEL: The following modified sections: 1. [id number] Admission Performance, 1. [id number] Admission Performance, 1. [id number] Admission Performance, 1. [id number] Admission Performance, 1. [id number] Admission Performance were [electronically] signed by MARK Kulkarni on ThuFeb 08 2020 13:58:51 T-0500 (Central Daylight Time)
--- NOTE | 2020-02-08 17:41 | R.PN ---
PROGRESS NOTES ENCOUNTER DATE AND TIME: 02/08/2020 17:28 (CDT) NAME BRENDA TREJO DATE OF : 1940 DATE OF ADMISSION: 01/28/2020 12:37 (CDT) Parkinson's disease (G20)Parkinsons Exaserbation, DebilitationCHIEF COMPLAINT: Parkinson's disease and debility. SUBJECTIVE: Pt denied any depression. Pt denied any Shortness of Breath. WBC is chronically elevated to 11.4 secondary to leukocytosis. Her electrolytes are essentially nick l except for mildly low potassium of 3.4. Prealbumin 28.0. Her UA is normal. She is followed by Dr. Bird. She ambulated 1000' with standby assistance using a rolling walker. Up and down 15 steps using bilate ral handrails and contact guard assistance. ADLs done with standby assistance. VITAL SIGNS Temperature: 97.2 F SBP/DBP: 155/74 Pulse: 68 Resp: 16 MEDICATION ALLERGIES: AZITHROMYCIN CODEINE PENTAZOCINE ENVIRONMENTAL ALLERGIES: BANANA - Substance Allergies None Known - Other Allergies None Known CONSULT: Perform Neuro consult NURSING: - Shower allowing shower ACTIVITIES OOB only with supervision THERAPIES: - Dietary and Nutrition Adequate Nutrition. Nutritional Education. Nutritional Supplements. - Speech Therapy Memory Strategies. Speech Intelligibility Training. PHYSICAL EXAM - Gen Alert and awake Lying in bed No apparent distress Oriented to: person, time, and place - Skin No skin breakdown. No abnormalities - Eyes No abnormalities - ENMT No abnormalities - Neck No abnormalities - CVS RRR - Chest No abnormalities - Resp Clear to auscultation - Abd Soft - GI Non distended Deferred - No abnormalities - Ext Mild bilateral lower extremity edema. - MSK 4+/5 weakness in both lower extremities. - Neuro No focal deficits - Psych No abnormalities ASSESSMENT: Pt. is a 79 yo Right-handed white female.On 01/25/[address] [facility] with d iagnosis Parkinson's disease (G20).Her impairment category is Neurologic Conditions 03 - Parkinsonis m (03.2).Pre-morbidly, Pt. was independent/mod-I in Transfers Control, Locomotion, and Self-Care; and she had good Balance, Safety Awareness, Social Cognition, and Communication.Currently, she has defic its of Transfers Control, Locomotion, Balance, Safety Awareness, and Self-Care.Pt. is now referred to [facility] for acute in-patient rehabilitation in order to maximize patient's functional independence in activities of daily living, strength, ROM, and mobility.- Rehab Goal Patient has realistic goal of being discharged at assistance level 6-Amanda to reside at Home with Ines rivera. MDM/PLAN: - Physical Therapy Gait dysfunction - to improve, our physical therapists will perform initial evaluation of pt's statu s upon admission and devise an individualized program for Gait Training, and Wheel Chair mobility Inability to transfer - to improve, our physical therapists will perform initial evaluation of pt's status upon admission and devise an individualized program for Bed mobility Need for home safety evaluation - to improve, our physical therapists will perform initial evaluatio n of pt's status upon admission and devise an individualized program for Home Evaluation Need in caregiver upon discharge - to improve, our physical therapists will perform initial evaluati on of pt's status upon admission and devise an individualized program for Caregiver Training New precaution - to improve, our physical therapists will perform initial evaluation of pt's status upon admission and devise an individualized program for Patient precaution education Poor balance - to improve, our physical therapists will perform initial evaluation of pt's status up on admission and devise an individualized program for Balance Training Weakness - to improve, our physical therapists will perform initial evaluation of pt's status upon a dmission and devise an individualized program for Aquatic Therapy, Neuromuscular Reeducation, and Str engthening Achieving independence - to improve, our physical therapists will perform initial evaluation of pt's status upon admission and devise an individualized program for Community Reintegration Activities - Occupational Therapy ADL deficits - to improve, our occupation therapists will perform initial evaluation of pt's status upon admission and devise an individualized program for Bathing, Bed mobility, Community Reintegratio n, Cooking, Dressing, Eating, Fine Motor Skills, Grooming, Homemaking, Kitchen Mobility, Laundry, Pat ient Education, Safety Awareness, Splinting - Positioning, Transfers(Toilet, Tub, Shower), and Wheel Chair Management Need for critical care physician - to improve, our occupation therapists will perform initial evaluation of pt's status upon admission and devise an individualized program for Caregiver Training Weakness - to improve, our occupation therapists will perform initial evaluation of pt's status upon admission and devise an individualized program for Aquatic Therapy, Balance, Endurance, UE ROM, and UE strengthening - N/A See attached MAR (Medication Administration Record) Perform Neuro consult - Diet Type Continue Regular - Diet - Liquid Texture Continue Regular - Tube Feed Continue N/A - Diet - Solid Texture Continue Regular - Shower allowing shower FUNCTIONAL STATUS: UPDATED AT WEEKLY TEAM CONFERENCE - Walking Same score based on distance walked: 1(<=50ft) - Wheelchair Same score based on distance traveled: 0(N/A) FUNCTIONAL STATUS: - Self-Care A. Eating Amanda B. Grooming Amanda C. Bathing sup D. Dressing - Upper sup E. Dressing - Lower Patrick F. Toileting Patrick - Sphincter Control G. Bladder control sup H. Bowel control sup - Transfers Control I. Bed/Chair/Wheelchair Patrick J. Toilet Patrick K. Tub/Shower Patrick - Locomotion L. Walk/Wheelchair (B) Patrick M. Stairs maxA - Communication N. Comprehension (B) Amanda O. Expression (B) Amanda - Social Cognition P. Social Interaction Amanda Q. Problem Solving Amanda R. Memory Amanda - Endurance Fair - Balance Fair - Safety Awareness Fair QI SCORES: - Self-Care A. Eating 05-Setup or clean-up assistance B. Oral hygiene 05-Setup or clean-up assistance C. Toileting hygiene 03-Partial/moderate assistance E. Shower/bathe self 03-Partial/moderate assistance F. Upper body dressing G. Lower body dressing H. Putting on/taking off footwear - Mobility A. Roll left and right 03-Partial/moderate assistance B. Sit to lying 03-Partial/moderate assistance C. Lying to sitting on side of bed 03-Partial/moderate assistance D. Sit to stand 03-Partial/moderate assistance E. Chair/sej-bw-tyjfq transfer 03-Partial/moderate assistance F. Toilet transfer 03-Partial/moderate assistance G. Car transfer 88-Not attempted due to medical condition or safety concerns I. Walk 10 feet 03-Partial/moderate assistance J. Walk 50 feet with two turns 88-Not attempted due to medical condition or safety concerns K. Walk 150 feet 88-Not attempted due to medical condition or safety concerns L. Walking 10 feet on uneven surfaces 88-Not attempted due to medical condition or safety concerns M. 1 step (curb) 88-Not attempted due to medical condition or safety concerns N. 4 steps 88-Not attempted due to medical condition or safety concerns O. 12 steps 88-Not attempted due to medical condition or safety concerns P. Picking up object 88-Not attempted due to medical condition or safety concerns - Bladder and Bowel Bladder continence 1-Stress incontinence only Bowel continence 0-Always continent - Endurance Poor - Balance Poor - Safety Awareness Poor CURRENT FUNC. DEFICITS: Self-Care, Mobility, Endurance, Balance, and Safety Awareness SIGNATURE PANEL: (CDT)
[2020-02-08] MEDS: ATORVASTATIN 10 MG TAB PO SCH (20:05)
[2020-02-08] MEDS: DOCUSATE NA/SENNA CONC 1 TAB PO PRN (20:05)
[2020-02-08] MEDS: FORMULATION-R RECTAL 30GM PR PRN (20:05)
[2020-02-08] MEDS: MIRTAZAPINE 15 MG TAB PO SCH (20:06)
[2020-02-08] MEDS: DIPHENHYDRAMINE 25 MG TAB/CAP PO PRN (20:08)
[2020-02-08] MEDS ORDERED: SIMETHICONE 125 MG TAB PO PRN (20:18)
--- NOTE | 2020-02-08 22:46 | PN ---
Date of Progress Note: 02/08/2020 Subjective: The patient was seen this morning for followup. No new complaints or problems reported. Objective: Vital Signs: Reviewed. HEENT: Unremarkable. Lungs: Clear to auscultation. Heart: Sounds normal. Abdomen: Soft. Bowel sounds normal. No guarding, rigidity, tenderness, or distention. Extremities: No leg edema. Skin: No rash. Impressiongeneralized: 1.Generalized weakness. 2.Debility. 3.Parkinson disease. 4.Constipation. Plan: Continue current medication except we will discontinue prednisone and continue physical therap y under guidance of Dr. Cuevas. 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 Once again, t his is entirely on the basis of this tumor marker and for definitive diagnosis, biopsy can provide mo re definitive diagnosis. I will communicate with family. LISA/BENOITL Voice ID: [id number] Report ID: [id number]
[2020-02-09] MEDS: TRAMADOL HCL 50 MG TAB PO PRN ×3 (04:02→20:17)
[2020-02-09] MEDS: LEVOTHYROXINE SOD 0.125 MG TAB PO SCH (05:05)
[2020-02-09 06:13] LABS: Absolute Lymphocytes (CBC) 3.4 K/uL (0.7-4.9); Hematocrit 30.4 % (36.0-45.0); Lymphocytes % 31.3 % (15.3-44.8); MPV 8.5 fL (7.6-11.3)
[2020-02-09 06:37] LABS: Albumin 2.9 g/dL (3.4-5.0); Potassium 3.8 mmol/L (3.5-5.1)
[2020-02-09] MEDS: [UNRECOGNIZED DRUG - OTHER] PO SCH ×6 (07:30→20:16)
[2020-02-09] MEDS: CETIRIZINE HCL 5 MG TABLET PO SCH (08:02)
[2020-02-09] MEDS: ALPRAZOLAM 0.25 MG TABLET PO SCH ×3 (08:03→20:17)
[2020-02-09] MEDS: predniSONE 5 MG TAB PO SCH (08:03)
[2020-02-09] MEDS: VITAMIN D 5,000 UNIT CAP PO SCH (08:03)
[2020-02-09] MEDS: CARBIDOPA/LEVODOPA 25/100 TAB PO SCH ×3 (08:03→20:16)
[2020-02-09] MEDS: AMLODIPINE 5 MG TAB PO SCH (08:03)
[2020-02-09] MEDS: IBUPROFEN 400 MG TAB PO PRN (08:04)
[2020-02-09] MEDS: DULOXETINE 30 MG CAP PO SCH ×2 (08:04→20:16)
[2020-02-09] MEDS: ENOXAPARIN 30 MG/0.3 ML SQ SCH (08:04)
[2020-02-09] MEDS: MAGNESIUM OXIDE 400 MG TAB PO SCH ×2 (08:04→20:16)
[2020-02-09] MEDS: OXYBUTYNIN CHLORIDE 5 MG TAB PO SCH ×3 (08:04→20:17)
[2020-02-09] MEDS: LIDOCAINE 4% PATCH TOP SCH (08:05)
--- NOTE | 2020-02-09 17:59 | R.PN ---
PROGRESS NOTES ENCOUNTER DATE AND TIME: 02/09/2020 17:53 (CDT) NAME BRENDA TREJO DATE OF : 1940 DATE OF ADMISSION: 01/28/2020 12:37 (CDT) Parkinson's disease (G20)Parkinsons Exaserbation, DebilitationCHIEF COMPLAINT: Parkinson's disease and debility. SUBJECTIVE: Pt denied any depression. Pt denied any Shortness of Breath. WBC is normal at 10.8. Her electrolytes are essentially normal. Prealbumin 25.0. Her UA is normal. She is followed by Dr. Bird. She ambulated 1250' with independence using a rolling walker. Up and down 15 steps using bilateral xie ndrails and independence. ADLs done with standby assistance. VITAL SIGNS Temperature: 98.2 F SBP/DBP: 153/65 Pulse: 72 Resp: 16 MEDICATION ALLERGIES: AZITHROMYCIN CODEINE PENTAZOCINE ENVIRONMENTAL ALLERGIES: BANANA - Substance Allergies None Known - Other Allergies None Known CONSULT: Perform Neuro consult NURSING: - Shower allowing shower ACTIVITIES OOB only with supervision THERAPIES: - Dietary and Nutrition Adequate Nutrition. Nutritional Education. Nutritional Supplements. - Speech Therapy Memory Strategies. Speech Intelligibility Training. PHYSICAL EXAM - Gen Alert and awake Lying in bed No apparent distress Oriented to: person, time, and place - Skin No skin breakdown. No abnormalities - Eyes No abnormalities - ENMT No abnormalities - Neck No abnormalities - CVS RRR - Chest No abnormalities - Resp Clear to auscultation - Abd Soft - GI Non distended Deferred - No abnormalities - Ext Mild bilateral lower extremity edema. - MSK 4+/5 weakness in both lower extremities. - Neuro No focal deficits - Psych No abnormalities ASSESSMENT: Pt. is a 79 yo Right-handed white female.On 01/25/2020 she was admitted to [facility] with d iagnosis Parkinson's disease (G20).Her impairment category is Neurologic Conditions 03 - Parkinsonis m (03.2).Pre-morbidly, Pt. was independent/mod-I in Transfers Control, Locomotion, and Self-Care; and she had good Balance, Safety Awareness, Social Cognition, and Communication.Currently, she has defic its of Transfers Control, Locomotion, Balance, Safety Awareness, and Self-Care.Pt. is now referred to [facility] for acute in-patient rehabilitation in order to maximize patient's functional independence in activities of daily living, strength, ROM, and mobility.- Rehab Goal Patient has realistic goal of being discharged at assistance level 6-Amanda to reside at Home with Ines rivera. MDM/PLAN: - Physical Therapy Gait dysfunction - to improve, our physical therapists will perform initial evaluation of pt's statu s upon admission and devise an individualized program for Gait Training, and Wheel Chair mobility Inability to transfer - to improve, our physical therapists will perform initial evaluation of pt's status upon admission and devise an individualized program for Bed mobility Need for home safety evaluation - to improve, our physical therapists will perform initial evaluatio n of pt's status upon admission and devise an individualized program for Home Evaluation Need in caregiver upon discharge - to improve, our physical therapists will perform initial evaluati on of pt's status upon admission and devise an individualized program for Caregiver Training New precaution - to improve, our physical therapists will perform initial evaluation of pt's status upon admission and devise an individualized program for Patient precaution education Poor balance - to improve, our physical therapists will perform initial evaluation of pt's status up on admission and devise an individualized program for Balance Training Weakness - to improve, our physical therapists will perform initial evaluation of pt's status upon a dmission and devise an individualized program for Aquatic Therapy, Neuromuscular Reeducation, and Str engthening Achieving independence - to improve, our physical therapists will perform initial evaluation of pt's status upon admission and devise an individualized program for Community Reintegration Activities - Occupational Therapy ADL deficits - to improve, our occupation therapists will perform initial evaluation of pt's status upon admission and devise an individualized program for Bathing, Bed mobility, Community Reintegratio n, Cooking, Dressing, Eating, Fine Motor Skills, Grooming, Homemaking, Kitchen Mobility, Laundry, Pat ient Education, Safety Awareness, Splinting - Positioning, Transfers(Toilet, Tub, Shower), and Wheel Chair Management Need for healthcare corporate account director - to improve, our occupation therapists will perform initial evaluation of pt's status upon admission and devise an individualized program for Caregiver Training Weakness - to improve, our occupation therapists will perform initial evaluation of pt's status upon admission and devise an individualized program for Aquatic Therapy, Balance, Endurance, UE ROM, and UE strengthening - N/A See attached MAR (Medication Administration Record) Perform Neuro consult - Diet Type Continue Regular - Diet - Liquid Texture Continue Regular - Tube Feed Continue N/A - Diet - Solid Texture Continue Regular - Shower allowing shower FUNCTIONAL STATUS: UPDATED AT WEEKLY TEAM CONFERENCE - Walking Same score based on distance walked: 1(<=50ft) - Wheelchair Same score based on distance traveled: 0(N/A) FUNCTIONAL STATUS: - Self-Care A. Eating Amanda B. Grooming Amanda C. Bathing sup D. Dressing - Upper sup E. Dressing - Lower Patrick F. Toileting Patrick - Sphincter Control G. Bladder control sup H. Bowel control sup - Transfers Control I. Bed/Chair/Wheelchair Patrick J. Toilet Patrick K. Tub/Shower Patrick - Locomotion L. Walk/Wheelchair (B) Patrick M. Stairs maxA - Communication N. Comprehension (B) Amanda O. Expression (B) Amanda - Social Cognition P. Social Interaction Amanda Q. Problem Solving Amanda R. Memory Amanda - Endurance Fair - Balance Fair - Safety Awareness Fair QI SCORES: - Self-Care A. Eating 05-Setup or clean-up assistance B. Oral hygiene 05-Setup or clean-up assistance C. Toileting hygiene 03-Partial/moderate assistance E. Shower/bathe self 03-Partial/moderate assistance F. Upper body dressing G. Lower body dressing H. Putting on/taking off footwear - Mobility A. Roll left and right 03-Partial/moderate assistance B. Sit to lying 03-Partial/moderate assistance C. Lying to sitting on side of bed 03-Partial/moderate assistance D. Sit to stand 03-Partial/moderate assistance E. Chair/cbi-cq-hlfqj transfer 03-Partial/moderate assistance F. Toilet transfer 03-Partial/moderate assistance G. Car transfer 88-Not attempted due to medical condition or safety concerns I. Walk 10 feet 03-Partial/moderate assistance J. Walk 50 feet with two turns 88-Not attempted due to medical condition or safety concerns K. Walk 150 feet 88-Not attempted due to medical condition or safety concerns L. Walking 10 feet on uneven surfaces 88-Not attempted due to medical condition or safety concerns M. 1 step (curb) 88-Not attempted due to medical condition or safety concerns N. 4 steps 88-Not attempted due to medical condition or safety concerns O. 12 steps 88-Not attempted due to medical condition or safety concerns P. Picking up object 88-Not attempted due to medical condition or safety concerns - Bladder and Bowel Bladder continence 1-Stress incontinence only Bowel continence 0-Always continent - Endurance Poor - Balance Poor - Safety Awareness Poor CURRENT FUNC. DEFICITS: Self-Care, Mobility, Endurance, Balance, and Safety Awareness SIGNATURE PANEL: (CDT)
[2020-02-09] MEDS: FORMULATION-R RECTAL 30GM PR PRN (20:15)
[2020-02-09] MEDS: DOCUSATE NA/SENNA CONC 1 TAB PO PRN (20:16)
[2020-02-09] MEDS: MIRTAZAPINE 15 MG TAB PO SCH (20:16)
[2020-02-09] MEDS: ATORVASTATIN 10 MG TAB PO SCH (20:17)
[2020-02-09] MEDS: DIPHENHYDRAMINE 25 MG TAB/CAP PO PRN (20:34)
[2020-02-10] MEDS: TRAMADOL HCL 50 MG TAB PO PRN (02:49)
[2020-02-10] MEDS: LEVOTHYROXINE SOD 0.125 MG TAB PO SCH (05:04)
[2020-02-10] MEDS: ENOXAPARIN 30 MG/0.3 ML SQ SCH (06:41)
[2020-02-10] MEDS: IBUPROFEN 400 MG TAB PO PRN ×2 (07:11→12:44)
[2020-02-10] MEDS: [UNRECOGNIZED DRUG - OTHER] PO SCH ×3 (07:13→11:30)
[2020-02-10] MEDS: ALPRAZOLAM 0.25 MG TABLET PO SCH ×2 (07:45→12:52)
[2020-02-10] MEDS: OXYBUTYNIN CHLORIDE 5 MG TAB PO SCH ×2 (07:45→12:52)
[2020-02-10] MEDS: DULOXETINE 30 MG CAP PO SCH (07:45)
[2020-02-10] MEDS: VITAMIN D 5,000 UNIT CAP PO SCH (07:45)
[2020-02-10] MEDS: CETIRIZINE HCL 5 MG TABLET PO SCH (07:45)
[2020-02-10] MEDS: predniSONE 5 MG TAB PO SCH ×2 (07:46→08:00)
[2020-02-10] MEDS: AMLODIPINE 5 MG TAB PO SCH (07:46)
[2020-02-10] MEDS: CARBIDOPA/LEVODOPA 25/100 TAB PO SCH ×2 (07:46→12:52)
[2020-02-10 07:47] VITALS: BP 149/62
[2020-02-10] MEDS: MAGNESIUM OXIDE 400 MG TAB PO SCH (07:54)
[2020-02-10 08:01] VITALS: TEMP 97.7
--- NOTE | 2020-02-10 09:37 | P.RH.PN ---
Estimated Length of Stay: 14 Expected Discharge Date: 02/10/20 Discharge Disposition Plan: Home Family Support: Yes [facility] Goal: Mobility, Transfers, Self Care Vital Signs: Last Vital Signs Temp 97.7 F 02/10/20 08:00 Pulse 72 02/10/20 08:00 Resp 18 02/10/20 08:00 BP 149/62 H 02/10/20 08:00 Pulse Ox 93 02/10/20 08:00 Laboratory: Laboratory Last Values WBC 10.8 K/uL (4.3-10.9) 02/09/20 05:43 RBC 3.20 M/uL (3.86-4.86) L 02/09/20 05:43 Hgb 10.1 g/dL (12.0-15.0) L 02/09/20 05:43 Hct 30.4 % (36.0-45.0) L 02/09/20 05:43 MCV 94.9 fL (80-100) 02/09/20 05:43 MCH 31.6 pg (27.0-35.0) 02/09/20 05:43 MCHC 33.3 g/dL (32.0-36.0) 02/09/20 05:43 RDW 15.3 % (12.1-15.2) H 02/09/20 05:43 Plt Count 146 K/uL (152-406) L D 02/09/20 05:43 MPV 8.5 fL (7.6-11.3) 02/09/20 05:43 Neutrophils % 53.7 % (41.7-73.7) 02/09/20 05:43 Lymphocytes % 31.3 % (15.3-44.8) 02/09/20 05:43 Monocytes % 10.0 % (3.3-12.3) 02/09/20 05:43 Eosinophils % 3.0 % (0-4.4) 02/09/20 05:43 Basophils % 2.0 % (0-1.3) H 02/09/20 05:43 Absolute Neutrophils 5.8 K/uL (1.8-8.0) 02/09/20 05:43 Segmented Neutrophils 54 % (40-80) 01/31/20 06:37 Band Neutrophils 1 % (0-1) 01/31/20 06:37 Absolute Lymphocytes 3.4 K/uL (0.7-4.9) 02/09/20 05:43 Lymphocytes 33 % (15-42) 01/31/20 06:37 Monocytes 9 % (0-10) 01/31/20 06:37 Absolute Monocytes 1.1 K/uL (0.1-1.3) 02/09/20 05:43 Eosinophils 2 % (0-3) 01/31/20 06:37 Absolute Eosinophils 0.3 K/uL (0-0.5) 02/09/20 05:43 Absolute Basophils 0.2 K/uL (0-0.5) 02/09/20 05:43 Metamyelocytes 1 % (0-0) H 01/31/20 06:37 Myelocytes 1 % (0-0) H 01/29/20 05:26 Giant Platelets Noted 01/29/20 05:26 Morphology Comment Not seen (NOT SEEN) 01/31/20 06:37 Sodium 145 mmol/L (136-145) 02/09/20 05:43 Potassium 3.8 mmol/L (3.5-5.1) 02/09/20 05:43 Chloride 108 mmol/L (98-107) H 02/09/20 05:43 Carbon Dioxide 34 mmol/L (21-32) H 02/09/20 05:43 BUN 16 mg/dL (7-18) 02/09/20 05:43 Creatinine 0.69 mg/dL (0.55-1.3) 02/09/20 05:43 Estimated GFR 82 mL/min (=/>90) L 02/09/20 05:43 Glucose 90 mg/dL (74-106) 02/09/20 05:43 Calcium 8.9 mg/dL (8.5-10.1) 02/09/20 05:43 Magnesium 2.2 mg/dL (1.8-2.4) 02/02/20 05:42 Albumin 2.9 g/dL (3.4-5.0) L 02/09/20 05:43 Prealbumin 25.0 mg/dL (20-40) 02/09/20 05:43 Urine Color Cancelled 01/28/20 18:41 Urine Appearance Cancelled 01/28/20 18:41 Urine pH Cancelled 01/28/20 18:41 Ur Specific [place] Cancelled 01/28/20 18:41 Glucose (UA)(Auto) Cancelled 01/28/20 18:41 Urine Ketones Cancelled 01/28/20 18:41 Urine Blood Cancelled 01/28/20 18:41 Urine Nitrite Cancelled 01/28/20 18:41 Urine Bilirubin Cancelled 01/28/20 18:41 Urine Urobilinogen Cancelled 01/28/20 18:41 Ur Leukocyte Esterase Cancelled 01/28/20 18:41 Urine RBC Cancelled 01/28/20 18:41 Urine WBC Cancelled 01/28/20 18:41 Ur Squamous Epith Cells Cancelled 01/28/20 18:41 Ur Urothelial Cells Cancelled 01/28/20 18:41 Calcium Oxalate Crystal Cancelled 01/28/20 18:41 Uric Acid Crystals Cancelled 01/28/20 18:41 Triple Phos Crystals Cancelled 01/28/20 18:41 Other Crystals Cancelled 01/28/20 18:41 Amorphous Sediment Cancelled 01/28/20 18:41 Glitter Cells Cancelled 01/28/20 18:41 Urine Bacteria Cancelled 01/28/20 18:41 Hyaline Casts Cancelled 01/28/20 18:41 Fine Granular Casts Cancelled 01/28/20 18:41 Coarse Granular Casts Cancelled 01/28/20 18:41 Waxy Casts Cancelled 01/28/20 18:41 RBC Casts Cancelled 01/28/20 18:41 WBC Casts Cancelled 01/28/20 18:41 Urine Mucus Cancelled 01/28/20 18:41 Urine Other Cancelled 01/28/20 18:41 Urine Trichomonas Cancelled 01/28/20 18:41 Urine Yeast Cancelled 01/28/20 18:41 Ur Yeast w Hyphae Cancelled 01/28/20 18:41 Urine Yeast (Budding) Cancelled 01/28/20 18:41 Urine Sperm Cancelled 01/28/20 18:41 Urine Culture Reflexed Cancelled 01/28/20 18:41 Urine Total Volume Cancelled 01/28/20 18:41 Urine Total Protein Cancelled 01/28/20 18:41 SARS-CoV-2 RNA (RT-PCR) Negative (NEGATIVE) 02/01/20 07:00 Weight: 115 lb Wound Present: No Closed Surgical Incision Present: No Negative Pressure Wound Therapy Present: No Physician Update: Labs reviewed and are stable. She is modified independent with ADL and ambulation. Discharge home today. Functional Improvement: Patient has met all short-term and long-term goals at this time, w/ the exception of D/C home. Patient completes task w/ good technique and overall safety awareness. Summary: Patient's care plan and buttermaker continuous churn goals have been reviewed and revised as necessary. Please see the Rehabilitation Signature page for all necessary signatures.
--- NOTE | 2020-02-10 09:46 | PN ---
Date of Progress Note: 02/09/2020 Subjective: The patient was seen this morning for followup. She was lying in bed, not in distress. No new complaints or problems reported. Objective: Vital Signs: Reviewed. HEENT: Unremarkable. Lungs: Clear to auscultation. Heart: Sounds normal. Abdomen: Soft. Bowel sounds normal. No guarding, rigidity, tenderness, or distention. Extremities: No leg edema. Skin: No rash. Laboratory Data: White count 10.8, hemoglobin 10.1, platelets 146. Sodium 145, potassium 3.8, chlor gennaro 108, bicarb 34, BUN 16, creatinine 0.69, glucose 90. Impression: 1.Anemia. 2.Parkinson disease. 3.Generalized weakness. 4.Debility. Plan: We will go ahead and continue current medications. Continue physical therapy under guidance o glenn Cuevas. The patient is scheduled to go home tomorrow. Her CA 19-9 report came back normal a t 17 and I did call the patient's family to discuss details that is the patient's daughter and son-in -law and test results were discussed. 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 So, options discussed with family obviously will depend on what the patient want s and that is to go to [facility] on an elective outpatient basis for further evaluation and managem ent of this and follow with the recommendation, and if the patient does not want anything done, then other option I can think about is to repeat CAT scan in about 3 months and then 6 months and so forth . The patient's family will discuss with her when she returns home and I will have a followup with h er in about couple of weeks after discharge and then we will discuss this. LISA/MODL Voice ID: [id number] Report ID: [id number]
[2020-02-10] MEDS ORDERED: DOCUSATE NA/SENNA CONC 1 TAB PO ONE (10:09)
[2020-02-10] MEDS: LIDOCAINE 4% PATCH TOP SCH (10:28)
[2020-02-10 11:52] VITALS: O2SAT 93
--- NOTE | 2020-02-11 03:40 | DS ---
Date of Discharge: 02/10/2020 Disposition: Discharged to go home. Physical Examination: HEENT: Unremarkable. Lungs: Clear to auscultation. Heart: Sounds normal. Abdomen: Soft. Bowel sounds normal. No guarding, rigidity, tenderness, or distention. Extremities: No leg edema. Laboratory Data: On 01/29/2020, white count 15.1, hemoglobin 10.9, platelets 150. On 01/31/2020, white count 17.9, hemoglobin 11, platelets 203. This was thought to be due to prednisone. Subsequently, her white count came down as we lowered the dose of prednisone. She did not take any antibiotics. Last white count yesterday 10.8, hemoglobin 10.1, platelets 146. Her last chemistry yesterday, sodium 135, potassium 3.8, chloride 108, bicarb 34, BUN 16, creatinine 0.69, glucose 90. Her lowest potassium was 3.4, which was corrected. Hospital Course: A 79-year-old very pleasant female patient, who was brought to rehab floor from medical floor because of generalized weakness, debility with underlying Parkinson disease problem. Please see dictated H and P for more information. The patient was admitted to rehab floor where she received rehab therapy under guidance of Dr. Cuevas. Her condition overall improved with rehab therapy. She is ambulating very well and her other medical problems remained stable. She has chronic constipation problem, for which she received stool softener. Her rash that she had on her lower extremity has completely resolved with use of prednisone. We have tapered off the dose of prednisone, so she will not need to go home with any prednisone therapy. Her CA 19-9 tumor marker result came back, it was 17, that is within normal range, so I did call and discuss details with the patient's family member, that is daughter and son-in-law last night, and considering this tumor marker result being normal, it is more likely for pancreatic neoplasm to be benign than malignant, but once again, final decision will depend on the biopsy and I did talk to the family regarding possibility of sending her to [facility] for further evaluation and management of this problem on an elective outpatient basis and they will discuss with the patient after she comes home and let me know with their decision. If the patient decides not to pursue any further intervention, rather then we may consider repeating CAT scan in 3 months or so. Discharge Medications And Instructions: 1. Continue all prior home medications. 2. Follow up at my office week after next. 3. Senokot-S 2 tablets by mouth 2 times a day for constipation. Final Diagnoses: 1. Generalized weakness. 2. Debility. 3. Parkinson disease. 4. Hypokalemia. 5. Anemia, unspecified. 6. Hypothyroidism. 7. Hypertension. 8. Allergic rhinitis. 9. Constipation. 10. Overactive bladder. 11. Hyperlipidemia. 12. Osteoarthritis, multiple sites. LISA/MODL Voice ID: [id number] Report ID: [id number] GERMAN
--- NOTE | 2020-02-17 17:47 | R.DS ---
DISCHARGE SUMMARY FACILITY [facility] MR# [id number] NAME BRENDA TREJO ADDRESS [address] [place] [address] [address]IP [id number] PHONE DATE OF 1940 AGE 79 SSN# [id number] GENDER Female DEXTERITY Right-handed MARITAL STATUS RACE White ENCOUNTER PHYSICIAN Dr. Fito Cuevas M.D. REFERRING DOCTOR DR. 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 Parkinsons Exaserbation, Debilitation. DATE OF ADMISSION 01/28/2020 12:37 (CDT) MEDICATION ALLERGIES: AZITHROMYCIN CODEINE PENTAZOCINE ENVIRONMENTAL ALLERGIES: BANANA - Substance Allergies None Known - Other Allergies None Known DISCHARGE MEDICATIONS: - ContinueSee attached MAR (Medication Administration Record). CONSULT: Perform Neuro consult NURSING: - Shower allowing shower ACTIVITIES OOB only with supervision THERAPIES: - Dietary and Nutrition Adequate Nutrition Nutritional Education Nutritional Supplements - Speech Therapy Memory Strategies Speech Intelligibility Training HISTORY OF PRESENT ILLNESS: Pt. is a 79 yo Right-handed white female.On 01/25/2020 she was admitted to [facility] with d iagnosis Parkinson's disease (G20).Her impairment category is Neurologic Conditions 03 - Parkinsonis m (03.2).Pre-morbidly, Pt. was independent/mod-I in Transfers Control, Locomotion, and Self-Care; and she had good Balance, Safety Awareness, Social Cognition, and Communication.Currently, she has defic its of Transfers Control, Locomotion, Balance, Safety Awareness, and Self-Care.Pt. is now referred to [facility] for acute in-patient rehabilitation in order to maximize patient's functional independence in activities of daily living, strength, ROM, and mobility.- Rehab Goal Patient has realistic goal of being discharged at assistance level 6-Amanda to reside at Home with Inesdavid rivera. HOSPITAL COURSE: DIET - LIQUID TEXTURE: On 01/28/2020 Pt was upgraded to Regular Diet - Liquid Texture. DIET - SOLID TEXTURE: On 01/28/2020 Pt was upgraded to Regular Diet - Solid Texture. DIET TYPE: On 01/28/2020 Pt was upgraded to Regular Diet Type. TUBE FEED: On 01/28/2020 Pt was changed to N/A Tube Feed. DISCHARGE PHYSICAL EXAM - Gen Alert and awake Lying in bed No apparent distress Oriented to: person, time, and place - Skin No skin breakdown. No abnormalities - Eyes No abnormalities - ENMT No abnormalities - Neck No abnormalities - CVS RRR - Chest No abnormalities - Resp Clear to auscultation - Abd Soft - GI Non distended Deferred - No abnormalities - Ext Mild bilateral lower extremity edema. - MSK 4+/5 weakness in both lower extremities. - Neuro No focal deficits - Psych No abnormalities FUNCTIONAL STATUS: - Self-Care A. Eating 6-Amanda B. Grooming 6-Amanda C. Bathing 6-Amanda D. Dressing - Upper 6-Amanda E. Dressing - Lower 6-Amanda F. Toileting 6-Amanda - Sphincter Control G. Bladder control 6-Amanda H. Bowel control 6-Amanda - Transfers Control I. Bed/Chair/Wheelchair 6-Amanda J. Toilet 6-Amanda K. Tub/Shower 6-Amanda - Locomotion L. Walk/Wheelchair (B) 6-Amanda M. Stairs 6-Amanda - Communication N. Comprehension (B) 6-Amanda O. Expression (B) 6-Amanda - Social Cognition P. Social Interaction 6-Amanda Q. Problem Solving 6-Amanda R. Memory 6-Amanda - Endurance Good - Balance Good - Safety Awareness Good QI SCORES: - Self-Care A. Eating 05-Setup or clean-up assistance B. Oral hygiene 05-Setup or clean-up assistance C. Toileting hygiene 03-Partial/moderate assistance E. Shower/bathe self 03-Partial/moderate assistance F. Upper body dressing G. Lower body dressing H. Putting on/taking off footwear - Mobility A. Roll left and right 03-Partial/moderate assistance B. Sit to lying 03-Partial/moderate assistance C. Lying to sitting on side of bed 03-Partial/moderate assistance D. Sit to stand 03-Partial/moderate assistance E. Chair/zfq-be-noahe transfer 03-Partial/moderate assistance F. Toilet transfer 03-Partial/moderate assistance G. Car transfer 88-Not attempted due to medical condition or safety concerns I. Walk 10 feet 03-Partial/moderate assistance J. Walk 50 feet with two turns 88-Not attempted due to medical condition or safety concerns K. Walk 150 feet 88-Not attempted due to medical condition or safety concerns L. Walking 10 feet on uneven surfaces 88-Not attempted due to medical condition or safety concerns M. 1 step (curb) 88-Not attempted due to medical condition or safety concerns N. 4 steps 88-Not attempted due to medical condition or safety concerns O. 12 steps 88-Not attempted due to medical condition or safety concerns P. Picking up object 88-Not attempted due to medical condition or safety concerns - Bladder and Bowel Bladder continence 1-Stress incontinence only Bowel continence 0-Always continent - Endurance Poor - Balance Poor - Safety Awareness Poor DISCHARGE INSTRUCTIONS: - N/A Lovenox 30 mg sq daily. DISCHARGE PLAN, FOLLOW UP CARE PROVISIONS: - Estimated Length of Stay (days) 13. - Consensus on plan Discharge plan has not been discussed with primary caregiver. Patient/Family is in agreement with the plan. Primary caregiver is in agreement with the plan. - Patient/Family Goals Return home with assistance. - Planned Living Setting Upon Discharge Home, to live with Daughter. SIGNATURE PANEL: (CDT)
== END 2020-02-10 15:45 | disposition home health service (06) | DRG 56 ==
LOC: 5TH 14:37
PROVIDERS: ADMIT Internal Medicine; ATTEND Internal Medicine
DX: G20 Parkinson's disease (principal); J18.9 Pneumonia, unspecified organism; R53.81 Other malaise; R53.1 Weakness; K59.09 Other constipation; F02.80 Dementia in other diseases classified elsewhere, unspecified severity, without behavioral disturbance, psychotic disturbance, mood disturbance, and anxiety; E87.6 Hypokalemia; D64.9 Anemia, unspecified; E03.9 Hypothyroidism, unspecified; I10 Essential (primary) hypertension; J30.9 Allergic rhinitis, unspecified; N32.81 Overactive bladder; E78.5 Hyperlipidemia, unspecified; M19.90 Unspecified osteoarthritis, unspecified site; Z88.1 Allergy status to other antibiotic agents; Z88.5 Allergy status to narcotic agent; D72.829 Elevated white blood cell count, unspecified; L27.0 Generalized skin eruption due to drugs and medicaments taken internally; T36.95XA Adverse effect of unspecified systemic antibiotic, initial encounter; D69.6 Thrombocytopenia, unspecified; K64.9 Unspecified hemorrhoids; Z79.52 Long term (current) use of systemic steroids; R00.1 Bradycardia, unspecified; F32.9 Major depressive disorder, single episode, unspecified; F41.9 Anxiety disorder, unspecified; Z20.828 Contact with and (suspected) exposure to other viral communicable diseases
CPT/HCPCS: 36415; 71045; 74176; 80048; 80053; 80076; 81001; 81003; 81015; 82040; 82150; 82550; 82553; 83605; 83690; 83735; 84134; 84145; 84443; 84484; 85025; 85610; 85730; 86301; 87040; 87070; 87081; 87086; 87088; 87804; 92507; 92523; 92526; 92610; 93005; 97110; 97112; 97116; 97127; 97161; 97530; 97542; 99285; G0378; J0696; J1650; J2405; J7042; J7512; U0002; U0003

== ENCOUNTER 2021-12-25 20:09 | Inpatient (IN) | payer OTHER, BC ==
--- NOTE | 2021-12-25 21:16 | RAD REPORT ---
EXAM DESCRIPTION: RAD - Chest Single View - 12/25/2021 9:10 pm CLINICAL HISTORY: hypoxemia Chest pain. COMPARISON: Chest Single View dated 01/31/2020; Chest Single View dated 01/25/2020; Chest Pa And Lat (2 Views) dated 01/21/2020 FINDINGS: Portable technique limits examination quality. The lungs are emphysematous with moderate subsegmental atelectasis in the left mid lung. The right stacy ng is grossly clear. The heart is mildly prominent in size. No displaced fractures.Aortic atheroscler osis.
[2021-12-25 21:28] LABS: Arterial Blood Carboxyhemoglob 1.2 % (0-1.5); Blood Gas Oxyhemoglobin 91.3 % (94-97); Blood O2 Saturation 93.6 % (92-98.5)
[2021-12-25 21:34] LABS: Hematocrit 28.7 % (36.0-45.0); Lymphocytes % 8.2 % (15.3-44.8); MCV 88.2 fL (80-100); MPV 8.6 fL (7.6-11.3); RBC Red Blood Cell Count 3.26 M/uL (3.86-4.86)
[2021-12-25 21:55] LABS: AST/SGOT 22 U/L (15-37); Albumin 2.6 g/dL (3.4-5.0); Alkaline Phosphatase 78 U/L (45-117); BUN Blood Urea Nitrogen 22 mg/dL (7-18); Bicarbonate 27 mmol/L (21-32); Bilirubin Total 0.4 mg/dL (0.2-1.0); Glomerular Filtration Rate 90 ml/min (=/>90); Glucose Level 93 mg/dL (74-106); Potassium 3.6 mmol/L (3.5-5.1); Protein, Total 5.7 g/dL (6.4-8.2); Sodium Level 135 mmol/L (136-145)
[2021-12-25 22:02] LABS: ALT/SGPT < 10 U/L (12-78)
[2021-12-25 22:11] LABS: Urine Blood Negative (Negative); Urine Glucose Negative (Negative); Urine Protein Negative (Negative); Urine pH 6.5 (5.0-7.0)
[2021-12-25 22:21] LABS: Protime INR 1.08
[2021-12-25 22:26] LABS: Urine Bacteria <20 /HPF (<20); Urine RBC <5 /HPF (NONE SEEN)
--- NOTE | 2021-12-25 22:59 | ER ---
Nurse's Notes [facility] Name: Debra Forbes Age: 81 yrs Sex: Female : 1940 Arrival Date: 12/25/2021 Time: 20:13 Bed 20 Private MD: Diagnosis: Pneumonia, unspecified organism;Hypoxemia;Altered mental status, unspecified Presentation: 12/25 20:26 Chief complaint: EMS states: Toned out for a possible antibiotic reaction, EMS states ll3 they were told by [facility] the pt started a new antibiotic for edema, they state after taking the first dose of antibiotics pt experienced redness on body and increased edema so they stopped the antibiotic, today they said the edema and redness was worse and she had a fever. Coronavirus screen: At this time, the client does not indicate any symptoms associated with coronavirus-19. Ebola Screen: No symptoms or risks identified at this time. Initial Sepsis Screen: Does the patient meet any 2 criteria? RR > 20 per min. No. Patient's initial sepsis screen is negative. Does the patient have a suspected source of infection? No. Patient's initial sepsis screen is negative. Risk Assessment: Do you want to hurt yourself or someone else? Patient reports no desire to harm self or others. Onset of symptoms was December 24, 2021. Care prior to arrival: IV initiated. 22 GA, in the right hand, Glucose check: 103 Oxygen administered. via nasal cannula. Transition of care: patient was received from another setting of care (long-term care facility), [facility]. 20:26 Method Of Arrival: EMS: [facility] ll3 20:26 Acuity: RADHA 3 ll3 Triage Assessment: 20:36 General: Appears in no apparent distress. Behavior is cooperative, drowsy. General: ll3 Reports fever for 12-24 hours. Neuro: Level of Consciousness is awake, alert, obeys commands, Oriented to person, place, time, situation. Respiratory: Respiratory effort is even, unlabored, Respiratory pattern is regular, symmetrical. Derm: Skin is pink, warm \T\ dry. 23:41 Pain: Denies pain. ll3 Historical: - Allergies: 20:36 Banana; ll3 20:36 Codeine; ll3 20:36 Erythromycin; ll3 20:36 Talwin; ll3 23:39 Bactrim; ll3 - PMHx: 20:36 Anxiety; Depression; Hyperlipidemia; Hypertension; Hypothyroidism; overactive bladder; ll3 Parkinson's disease; - History obtained from: EMS. Screenin:40 Abuse screen: Denies threats or abuse. Nutritional screening: No deficits noted. ll3 Tuberculosis screening: No symptoms or risk factors identified. Fall Risk No fall in past 12 months (0 pts). Secondary diagnosis (15 points) impaired mobility, IV access (20 points). Ambulatory Aid- None/Bed Rest/Nurse Assist (0 pts). Gait- Normal/Bed Rest/Wheelchair (0 pts) Mental Status- Oriented to own ability (0 pts). Total Mann Fall Scale indicates Low Risk Score (25-44 pts). Fall prevention measures have been instituted. Side Rails Up X 2 Placed close to Nursing Station As available Patient and Family Educated on Fall Prevention Program and strategies. Assessment: 20:39 General: See triage assessment. ll3 22:00 Reassessment: No changes from previously documented assessment. Patient and/or family ll3 updated on plan of care and expected duration. Pain level reassessed. Patient is alert, oriented x 3, equal unlabored respirations, skin warm/dry/pink. 22:54 Reassessment: No changes from previously documented assessment. Patient and/or family ll3 updated on plan of care and expected duration. Pain level reassessed. Patient is alert, oriented x 3, equal unlabored respirations, skin warm/dry/pink. 12/26 01:03 Reassessment: No changes from previously documented assessment. Patient and/or family ll3 updated on plan of care and expected duration. Pain level reassessed. Patient is alert, oriented x 3, equal unlabored respirations, skin warm/dry/pink. 02:00 Reassessment: No changes from previously documented assessment. Patient and/or family ll3 updated on plan of care and expected duration. Pain level reassessed. Patient is alert, oriented x 3, equal unlabored respirations, skin warm/dry/pink. 03:00 Reassessment: No changes from previously documented assessment. Patient and/or family ll3 updated on plan of care and expected duration. Pain level reassessed. Patient is alert, oriented x 3, equal unlabored respirations, skin warm/dry/pink. Vital Signs: 12/25 20:26 BP 119 / 55; Pulse 90; Resp 24; Temp 99.3(A); Pulse Ox 88% on R/A; Weight 52.16 kg; ll3 Height 5 ft. 4 in. (162.56 cm); 22:00 BP 139 / 77; Pulse 84; Pulse Ox 93% on 2 lpm NC; ll3 22:54 BP 130 / 80; Pulse 73; Resp 22; Pulse Ox 95% on 2 lpm NC; ll3 23:38 BP 139 / 82; Pulse 82; Resp 20; Pulse Ox 96% on 2 lpm NC; ll3 12/26 01:03 BP 112 / 56; Pulse 78; Resp 24; Pulse Ox 98% on 2 lpm NC; ll3 02:00 BP 114 / 60; Pulse 67; Resp 22; Pulse Ox 97% on 2 lpm NC; ll3 03:00 BP 108 / 56; Pulse 67; Resp 22; Pulse Ox 96% on 2 lpm NC; ll3 12/25 20:26 Body Mass Index 19.74 (52.16 kg, 162.56 cm) ll3 ED Course: 12/25 20:13 Patient arrived in ED. zm 20:30 Da Arguelles MD is Attending Physician. rn 20:36 Triage completed. ll3 20:36 Arm band placed on Patient placed in an exam room, on a stretcher, on pulse oximetry. ll3 21:12 Chest Single View XRAY In Process Unspecified. EDMS 22:36 Baylee Monterroso (Daughter) [phone]. mw2 22:58 Palak Moscoso MD is Hospitalizing Provider. rn 23:41 Patient has correct armband on for positive identification. Bed in low position. Call ll3 light in reach. Side rails up X2. Client placed on continuous cardiac and pulse oximetry monitoring. NIBP monitoring applied. 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 ll3 12/26 01:02 aRcheal Wells, AIDAN is Primary Nurse. ll3 03:26 Patient admitted, IV remains in place. ll3 Administered Medications: 12/25 23:21 Drug: LevaQUIN (levofloxacin) 500 mg Volume: 100 ml; Route: IVPB; Infused Over: 60 ke1 mins; Site: left hand; 12/26 03:25 Follow up: Response: No adverse reaction; IV Status: Completed infusion; IV Intake: ll3 100ml Medication: 12/25 23:41 VIS not applicable for this client. ll3 Point of Care Testing: Guaiac: 22:55 Stool Guaiac: Negative; Stool Hemoccult Control: Pass; nicu rn: 12/26 03:25 IV: 100ml; Total: 100ml. ll3 Outcome: 12/25 22:58 Decision to Hospitalize by Provider. rn 12/26 05:00 Admitted to Med/surg accompanied by nurse, via stretcher, room 218, with oxygen, with ll3 chart, Report called to AIDAN Mackenzie Condition: stable Instructed on the need for admit, Demonstrated understanding of instructions. 05:25 Patient left the ED. ll3 Signatures: Dispatcher [employer] EDMS Da Arguelles MD MD rn [place], MyKena 2 aRcheal Wells RN RN ll3 Casandra Balderas RN RN ke1 Sylvia Santillan Corrections: (The following items were deleted from the chart) 05:25 05:24 Admitted to Med/surg accompanied by nurse, via stretcher, room 218, with oxygen, ll3 with chart, Report called to AIDAN Mackenzie ll3 05:25 05:24 Condition: stable ll3 ll3 05:25 05:24 Instructed on the need for admit, Demonstrated understanding of instructions, ll3 ll3
--- NOTE | 2021-12-25 22:59 | EDPHYS ---
Physician Documentation [facility] Name: Debra Forbes Age: 81 yrs Sex: Female : 1940 Arrival Date: 12/25/2021 Time: 20:13 Bed 20 Private MD: ED Physician Da Arguelles HPI: 12/25 20:41 This 81 yrs old Female presents to ER via EMS with complaints of fever. rn 20:41 The patient reports fever, that was measured at 101 degrees Fahrenheit. Onset: The rn symptoms/episode began/occurred 2 day(s) ago. Modifying factors: there are no obvious modifying factors. Associated signs and symptoms: Pertinent positives: altered mental status,\\E\\. Severity of symptoms: At their worst the symptoms were moderate. Unable to obtain HPI due to altered mental status. It is unknown whether or not the patient has recently seen a physician. Sent by [facility] by EMS for AMS, fever, low oxygen. Was given abx, unknown which type, caused reddening of skin and swelling so discontinued. Type of infection not conveyed to EMS. Pt altered. . Historical: - Allergies: 20:36 Banana; ll3 20:36 Codeine; ll3 20:36 Erythromycin; ll3 20:36 Talwin; ll3 23:39 Bactrim; ll3 - PMHx: 20:36 Anxiety; Depression; Hyperlipidemia; Hypertension; Hypothyroidism; overactive bladder; ll3 Parkinson's disease; - History obtained from: EMS. ROS: 20:41 Unable to obtain ROS due to altered mental status. rn Exam: 20:41 Constitutional: This is a well developed, well nourished patient who is somnolent, rn doesn't follow commands Head/Face: Normocephalic, atraumatic. Eyes: Periorbital areas with no swelling, redness, or edema. ENT: Very dry MM Cardiovascular: Regular rate and rhythm. No pulse deficits. Respiratory: + tachypnea with coarse bilateral breath sounds Abdomen/GI: soft, non-tender Skin: Warm, dry, faint erythematous papules bilateral upper ext MS/ Extremity: Pulses equal, no cyanosis. Neuro: Somnolent, constantly chewing, grimaces, does not speak or follow commands. Vital Signs: 20:26 BP 119 / 55; Pulse 90; Resp 24; Temp 99.3(A); Pulse Ox 88% on R/A; Weight 52.16 kg; ll3 Height 5 ft. 4 in. (162.56 cm); 22:00 BP 139 / 77; Pulse 84; Pulse Ox 93% on 2 lpm NC; ll3 22:54 BP 130 / 80; Pulse 73; Resp 22; Pulse Ox 95% on 2 lpm NC; ll3 23:38 BP 139 / 82; Pulse 82; Resp 20; Pulse Ox 96% on 2 lpm NC; ll3 12/26 01:03 BP 112 / 56; Pulse 78; Resp 24; Pulse Ox 98% on 2 lpm NC; ll3 02:00 BP 114 / 60; Pulse 67; Resp 22; Pulse Ox 97% on 2 lpm NC; ll3 03:00 BP 108 / 56; Pulse 67; Resp 22; Pulse Ox 96% on 2 lpm NC; ll3 12/25 20:26 Body Mass Index 19.74 (52.16 kg, 162.56 cm) ll3 MDM: 12/25 20:30 Patient medically screened. rn 22:54 ED course: Pt much more alert now, talking and answering questions.. rn 22:56 Differential diagnosis: viral Infection, bacterial infection, URI, bronchitis, rn pneumonia UTI. Data reviewed: vital signs, nurses notes, lab test result(s), radiologic studies, plain films, and as a result, I will admit patient. Counseling: I had a detailed discussion with the patient and/or guardian regarding: the historical points, exam findings, and any diagnostic results supporting the discharge/admit diagnosis, lab results, radiology results, the need for further work-up and treatment in the hospital. Response to treatment: the patient's symptoms have mildly improved after treatment, and as a result, I will admit patient. Admission orders: after a detailed discussion of the patient's condition and case, the admit orders are written by me. ED course: Pt with fever, tachypnea, hypoxemia, clear CXR but clinically most likely lung infection/pneumonia. Will cover with abx and admit to hospitalist service. . 22:59 ED course: Pt with possible pneumonia, no evidence of organ dysfunction to indicate rn severe sepsis. Lactate negative. BP normal. No need for intubation or BiPAP at this time.. 12/25 20:34 Order name: Blood Culture Adult (2) rn 12/25 20:34 Order name: CBC with Diff; Complete Time: 22:27 rn 12/25 20:34 Order name: CMP; Complete Time: 22:27 rn 12/25 20:34 Order name: Lactate; Complete Time: 22:27 rn 12/25 20:34 Order name: Protime (+inr); Complete Time: 22:27 rn 12/25 20:34 Order name: Ptt, Activated; Complete Time: 22:27 rn 12/25 20:34 Order name: Urine Culture rn 12/25 20:34 Order name: Urine Microscopic Only; Complete Time: 22:27 rn 12/25 20:34 Order name: SARS-COV-2 RT PCR (Document "Date of Onset" if Symptomatic); Complete Time: rn 22:12/25 20:34 Order name: ABG; Complete Time: 21:49 rn 12/25 20:34 Order name: Flu; Complete Time: 22:27 rn 12/25 22:11 Order name: Urine Dipstick-Ancillary; Complete Time: 22:27 EDVT 12/26 04:04 Order name: Comprehensive Metabolic Panel EDVT 12/26 04:07 Order name: CBC with Automated Diff EDMS 12/25 20:34 Order name: Chest Single View XRAY; Complete Time: 21:18 rn 12/25 20:34 Order name: Accucheck; Complete Time: 22:53 rn 12/25 20:34 Order name: Cardiac monitoring; Complete Time: 22:53 rn 12/25 20:34 Order name: Cath; Complete Time: 22:53 rn 12/25 20:34 Order name: EKG - Nurse/Tech; Complete Time: 21:24 rn 12/25 20:34 Order name: IV Saline Lock - Large Bore; Complete Time: 21:24 rn 12/25 20:34 Order name: Labs collected and sent; Complete Time: 21:24 rn 12/25 20:34 Order name: O2 Per Protocol; Complete Time: 21:24 rn 12/25 20:34 Order name: O2 Sat Monitoring; Complete Time: 21:24 rn 12/25 20:34 Order name: Urine Dipstick-Ancillary (obtain specimen); Complete Time: 22:53 rn Administered Medications: 23:21 Drug: LevaQUIN (levofloxacin) 500 mg Volume: 100 ml; Route: IVPB; Infused Over: 60 ke1 mins; Site: left hand; 12/26 03:25 Follow up: Response: No adverse reaction; IV Status: Completed infusion; IV Intake: ll3 100ml Point of Care Testing: Guaiac: 12/25 22:55 Stool Guaiac: Negative; Stool Hemoccult Control: Pass; rn Disposition Summary: 12/25/21 22:58 Hospitalization Ordered Hospitalization Status: Inpatient Admission rn Provider: Palak Moscoso [facility]n [facility] rn Condition: Stable rn Problem: new rn Symptoms: have improved rn Bed/Room Type: Standard rn Room Assignment: 218(12/26/21 03:06) cg Diagnosis - Pneumonia, unspecified organism rn - Hypoxemia rn - Altered mental status, unspecified rn Forms: - Medication Reconciliation Form rn - SBAR form rn Signatures: Dispatcher [employer] EDMS Da Arguelles MD MD rn Attema, Lee, CONTACT OFFICER-C CONTACT OFFICER-Cla1 Patricia Lamb RN RN Racheal Garcia RN RN ll3 Casandra Balderas RN RN ke1 Corrections: (The following items were deleted from the chart) 12/26 03:06 12/25 22:58 rn cg
[2021-12-25] MEDS ORDERED: Levofloxacin500mg IV 500 MG/100 ML BAG IV ONE (23:13)
--- NOTE | 2021-12-26 00:17 | P.HP ---
Certification for Inpatient Patient admitted to: Inpatient With expected LOS: >2 Midnights Patient will require the following post-hospital care: None Practitioner: I am a practitioner with admitting privileges, knowledge of patient current condition, hospital course, and medical plan of care. Services: Services provided to patient in accordance with Admission requirements found in Title 42 Section 412.3 of the Code of Federal Regulations <BernadetteDemond Julian - Last Filed: 12/26/21 00:12> Patient History Date of Service: 12/26/21 Reason for admission: Sepsis, pneumonia History of Present Illness: 81-year-old female resident of [facility] with history of Parkinson's, hypertension, hypothyroidism presents the emergency department for fever. Patient/care home staff reports that she was on an antibiotic for left lower extremity cellulitis and possibly was being transitioned to oral antibioticBactrim after first dose of Bactrim she had some redness on her face, after the second dose of Bactrim given today she had worsening redness to her face and arms she was sent to the emergency department for evaluation. In the ER she is found to be hypoxic on room air with saturations of 88% on room air her ABG demonstrated hypoxia she did meet criteria for sepsis with elevated white blood cell count, tachypnea plus noted suspected source of infection with hypoxia. The rest of her evaluation was significant for a normocytic anemia no signs of urinary tract infection chest x-ray demonstrated emphysematous lungs with moderate subsegmental atelectasis in the left midlung field. Suspect this is an early pneumonia. Blood cultures were obtained initial lactate normal no severe sepsis at this time will admit for further evaluation and management. - Past Medical/Surgical History Diabetic: No -: hypertension -: hyperlipidemia -: anxiety -: hypothyroidism -: depression -: over active bladder/uti -: Parkinson's -: Breast/ fibroid cysts Psychosocial/ Personal History: Patient is a resident at [facility] - Family History Mother -: Other (see notes) Father -: Lung disease Notes: Blood clot in lungs - Social History Smoking Status: Unknown if ever smoked Alcohol use: No CD- Drugs: No Caffeine use: Yes Place of Residence: Home <Demond Fleming - Last Filed: 12/26/21 00:12> Date of Service: 12/26/21 <Palak Moscoso - Last Filed: 12/26/21 08:14> Allergies azithromycin Allergy (Verified 01/29/20 07:16) Hives/Rash banana Allergy (Verified 01/29/20 07:16) Rash codeine Allergy (Verified 01/29/20 07:16) Shortness of breath pentazocine [From Talwin] Allergy (Verified 01/29/20 07:16) Shortness of breath Home Medications: ALPRAZolam [Xanax] 0.25 mg PO TID 01/28/20 Amlodipine [Norvasc] 5 mg PO DAILY 01/28/20 Carbidopa/Levodopa [Carbidopa-Levodopa 25-100 Tab] 1 each PO TID 01/28/20 Cholecalciferol (Vitamin D3) [Vitamin D 5,000 Iu Cap] 5,000 unit PO DAILY 01/28/20 Diphenhydramine HCl [Benadryl Allergy] 25 mg PO BID 01/28/20 Duloxetine HCl [Cymbalta] 60 mg PO BEDTIME 01/28/20 Levothyroxine [Synthroid] 125 mcg PO [id number] 01/28/20 Mirtazapine 7.5 mg PO BEDTIME 01/28/20 Oxybutynin Chloride [Ditropan] 5 mg PO TID 01/28/20 Tramadol HCl [Ultram] 50 mg PO TID 01/28/20 Acetaminophen [Tylenol -Tablet] 650 mg PO Q4HP PRN 12/26/21 Ascorbic Acid [Vitamin C] 500 mg PO DAILY 12/26/21 Atorvastatin Calcium [Lipitor] 10 mg PO BEDTIME 12/26/21 Docusate Sodium [Dulcolax Stool Softener] 200 mg PO BEDTIME 12/26/21 Lactase [Dairy Relief] 2 tab PO Q4HP PRN 12/26/21 Levocetirizine Dihydrochloride [Allergy Relief] 5 mg PO DAILY PRN 12/26/21 Loperamide [Imodium] 2 mg PO PRN PRN 12/26/21 Mag Hydrox/Aluminum Hyd/Simeth [Mylanta Maximum Strength Liq] 30 ml PO Q12HP PRN 12/26/21 Meclizine HCl [Antivert] 12.5 mg PO BID 12/26/21 Nystatin [Nystop] 1 appl TP DAILY 12/26/21 Smz./Tmp. [Bactrim Ds 800 MG/160 MG] 1 tab PO BID 12/26/21 Vit C/E/Zn/Coppr/Lutein/Zeaxan [Preservision Areds 2 Softgel] 1 each PO DAILY 12/26/21 Zinc Sulfate [Zinc Sulfate*] 220 mg PO DAILY 12/26/21 diphenhydrAMINE HCL [Diphenhydramine HCl] 25 mg PO Q6HP PRN 12/26/21 guaiFENesin [Bibi-Tussin] 10 ml PO Q6HP PRN 12/26/21 Review of Systems 10-point ROS is otherwise unremarkable General: Fever, Chills, Malaise Respiratory: Shortness of Breath <Demond Fleming - Last Filed: 12/26/21 00:12> Physical Examination - Physical Exam General: Alert, In no apparent distress, Oriented x3 HEENT: Atraumatic, PERRLA, Mucous membr. moist/pink, EOMI, Sclerae nonicteric Neck: Supple, 2+ carotid pulse no bruit, No LAD, Without JVD or thyroid abnormality Respiratory: Normal air movement, Diminished Cardiovascular: Regular rate/rhythm, Normal S1 S2 Gastrointestinal: Normal bowel sounds, No tenderness Musculoskeletal: No tenderness Integumentary: Erythema (Erythema of the right upper extremity) Neurological: Normal affect, Abnormal speech, Abnormal tone (Legs contracted, bedbound/wheelchair-bound) Lymphatics: No axilla or inguinal lymphadenopathy - Studies Laboratory Data (last 24 hrs) 12/25/21 21:12: PT 11.9, INR 1.08, APTT 27.6 12/25/21 21:12: Sodium 135 L, Potassium 3.6, BUN 22 H, Creatinine 0.63, Glucose 93, Total Bilirubin 0.4, AST 22, ALT < 10 L, Alkaline Phosphatase 78 12/25/21 21:12: WBC 12.0 H, Hgb 9.3 L, Hct 28.7 L, Plt Count 100 L Microbiology Data (last 24 hrs): 12/25/21 21:20 Nasopharnyx Influenza Type A Antigen Screen - Final 12/25/21 21:20 Nasopharnyx Influenza Type B Antigen Screen - Final <Demond Fleming - Last Filed: 12/26/21 00:12> - Studies Laboratory Data (last 24 hrs) 12/25/21 21:12: PT 11.9, INR 1.08, APTT 27.6 12/25/21 21:12: Sodium 135 L, Potassium 3.6, BUN 22 H, Creatinine 0.63, Glucose 93, Total Bilirubin 0.4, AST 22, ALT < 10 L, Alkaline Phosphatase 78 12/25/21 21:12: WBC 12.0 H, Hgb 9.3 L, Hct 28.7 L, Plt Count 100 L Microbiology Data (last 24 hrs): 12/25/21 21:20 Nasopharnyx Influenza Type A Antigen Screen - Final 12/25/21 21:20 Nasopharnyx Influenza Type B Antigen Screen - Final <Palak Moscoso - Last Filed: 12/26/21 08:14> Assessment and Plan - Plan Assessment: Sepsis secondary to suspected left-sided pneumonia with hypoxia Parkinson's Hypertension Hypothyroid Anxiety/depression Plan: Sepsis secondary to suspected left-sided pneumonia with hypoxia: Given antibioticsLevaquin blood cultures were obtained obtain daily room air saturations, continue with incentive spirometry. Initial lactate negative no sign of endorgan damage at this time. Supplemental oxygen as needed. Parkinson's: Continue home medications once verified. Hypertension: Continue home medications once verified. Hypothyroid: Continue home medications once verified. Anxiety/depression: Continue home medications once verified. DVT PPX: Lovenox Code status: Full Discharge Plan: Skilled Nursing Plan to discharge in: 72 Hours - Advance Directives Does patient have a Living Will: No Does patient have a Durable POA for Healthcare: Yes - Code Status/Comfort Care Code Status Assessed: Yes (Full code) Critical Care: No Time Spent Managing Pts Care (In Minutes): 70 <Demond Fleming - Last Filed: 12/26/21 00:12> Date of Service: 12/26/21 Subjective: HPI as mentioned above Physical Examination: Vitals: Afebrile vital signs are stable Physical exam: Cardiovascular: Within normal limits. Lungs: Within normal limits Abdomen: Within normal limits Neuro: Awake, alert, oriented to person place and time Assessment: 1. Sepsis Plan: 1. Continue with current plan of care as mentioned above <Palak Moscoso - Last Filed: 12/26/21 08:14>
[2021-12-26] MEDS ORDERED: ONDANSETRON 4 MG/2 ML VIAL IV PRN (02:19)
[2021-12-26] MEDS ORDERED: ACETAMINOPHEN 500 MG TAB PO PRN (02:19)
[2021-12-26] MEDS ORDERED: BENZONATATE 100 MG CAP PO PRN (02:19)
[2021-12-26] MEDS ORDERED: ALBUTEROL 2.5 MG/3 ML NEB SOL NEB PRN (02:19)
[2021-12-26] MEDS ORDERED: NA CHLORIDE 0.9% 1,000 ML ONE (03:03)
[2021-12-26 03:49] LABS: Hematocrit 27.8 % (36.0-45.0); Lymphocytes % 11.5 % (15.3-44.8); MCV 86.9 fL (80-100); MPV 8.8 fL (7.6-11.3)
[2021-12-26 04:01] LABS: AST/SGOT 16 U/L (15-37); Albumin 2.5 g/dL (3.4-5.0); Alkaline Phosphatase 78 U/L (45-117); BUN Blood Urea Nitrogen 20 mg/dL (7-18); Bicarbonate 28 mmol/L (21-32); Bilirubin Total 0.4 mg/dL (0.2-1.0); Glomerular Filtration Rate 90 ml/min (=/>90); Glucose Level 90 mg/dL (74-106); Potassium 3.6 mmol/L (3.5-5.1); Protein, Total 5.7 g/dL (6.4-8.2); Sodium Level 137 mmol/L (136-145)
[2021-12-26 04:04] LABS: ALT/SGPT < 10 U/L (12-78)
[2021-12-26] MEDS: NA CHLORIDE 0.9% 1,000 ML IV SCH ×3 (06:09→20:45)
[2021-12-26 07:50] VITALS: BMI 19.7
[2021-12-26] MEDS: ENOXAPARIN 40 MG/0.4 ML SQ SCH (09:00)
[2021-12-26] MEDS: KCL 20 MEQ/100 mL IVPB 20 MEQ/100 ML BAG IV SCH ×2 (10:52→15:42)
--- NOTE | 2021-12-26 13:52 | EKG ---
Test Date: 2021-12-25 Test Time: 21:16:31 Solar Installer: SATURNINO MEASUREMENT RESULTS: Intervals: Rate: 85 VT: 178 QRSD: 88 QT: 366 QTc: 435 [place]: P: 49 VT: 178 QRS: 1 T: 37 INTERPRETIVE STATEMENTS: Normal sinus rhythm Normal ECG Compared to ECG 01/28/2020 06:52:18 Junctional rhythm no longer present T-wave abnormality no longer present Electronically Signed On 12-26-21 13:50:38 CDT by Mj Ruiz
--- NOTE | 2021-12-26 14:37 | RAD REPORT ---
EXAM DESCRIPTION: RAD - Barium Swallow Modified - 12/26/2021 2:28 pm CLINICAL HISTORY: dysphagia FINDINGS: LINGUAL AND MANDIBLE TREMOR, SEVERE ORAL DYSPHAGIA, SEVERE DYSMOTILITY AT THE INFERIOR REGION OF ESOPHAGUS VERY LIMITED EXAMINATION FLUORO TIME: 4:33 Twenty fluoroscopic images obtained.
[2021-12-26] MEDS ORDERED: LORazepam 2 MG/ML VIAL IV ONE (20:13)
[2021-12-26] MEDS ORDERED: MORPHINE 2 MG/ML SYR IV PRN (20:13)
[2021-12-26] MEDS: Levofloxacin500mg IV 500 MG/100 ML BAG IV SCH (20:44)
[2021-12-27 05:59] LABS: Absolute Lymphocytes (CBC) 1.4 K/uL (0.7-4.9); Hematocrit 33.5 % (36.0-45.0); Lymphocytes % 11.4 % (15.3-44.8); MCV 88.7 fL (80-100); MPV 8.1 fL (7.6-11.3); RBC Red Blood Cell Count 3.78 M/uL (3.86-4.86)
[2021-12-27 06:17] LABS: Albumin 2.7 g/dL (3.4-5.0); Bilirubin Total 0.4 mg/dL (0.2-1.0); Potassium 3.7 mmol/L (3.5-5.1); Protein, Total 6.4 g/dL (6.4-8.2)
[2021-12-27] MEDS ORDERED: KCL 20 MEQ/100 mL IVPB 20 MEQ/100 ML BAG IV SCH (07:00)
[2021-12-27] MEDS: ENOXAPARIN 40 MG/0.4 ML SQ SCH (09:11)
[2021-12-27] MEDS: NA CHLORIDE 0.9% 1,000 ML IV SCH (11:55)
[2021-12-27] MEDS ORDERED: ALBUTEROL 2.5 MG/3 ML NEB SOL NEB PRN (14:00)
[2021-12-27] MEDS ORDERED: ACETAMINOPHEN 325 MG TABLET PO PRN (14:45)
[2021-12-27] MEDS ORDERED: HOME MED 1 EA UNK (Levocetirizine Dihydrochloride [Allergy Relief] 5 MG Tablet) PO PRN (14:45)
[2021-12-27] MEDS ORDERED: LACTASE 3000 UNIT PO PRN (14:45)
[2021-12-27] MEDS ORDERED: CETIRIZINE HCL 5 MG TABLET PO PRN (15:04)
--- NOTE | 2021-12-27 15:19 | P.PN ---
Subjective Date of Service: 12/27/21 Chief Complaint: Sepsis, pneumonia, issues with swallowing. Physical Examination - Vital Signs Temperature: 98.0 F Blood Pressure: 138/55 Pulse: 81 Respirations: 16 Pulse Ox (%): 97 - Physical Exam General: Alert, Cachectic HEENT: Atraumatic, Normocephalic Neck: Supple Respiratory: Diminished Cardiovascular: Regular rate/rhythm, Normal S1 S2 Gastrointestinal: Soft and benign Musculoskeletal: No swelling Assessment And Plan - Plan Sepsis secondary to suspected left-sided pneumonia with hypoxia Parkinson's disease Hypertension Hypothyroid Anxiety/depression Swallow issues Plan: Sepsis secondary to suspected left-sided pneumonia with hypoxia: Empiric antibiotic with Levaquin started. We will follow symptomatology and cultures. Parkinson's: Continue home medications once verified. Hypertension: Continue home medications once verified. Hypothyroid: Continue home medications once verified. Anxiety/depression: Continue home medications once verified. Issues with swallowing: Pending possible PEG tube placement. We will insert Dobbhoff tube for feeding and medication administration. DVT PPX: Lovenox Code status: Full Discharge Plan: Back to detention. Plan to discharge in: Pending finalization of management plan.
[2021-12-27] MEDS: JEVITY 1.5 CAL LIQUID 1,000 ML BOT FT SCH ×7 (17:00→23:00)
[2021-12-27] MEDS: DULOXETINE 30 MG CAP PO SCH (19:49)
[2021-12-27] MEDS: OXYBUTYNIN CHLORIDE 5 MG TAB PO SCH (19:49)
[2021-12-27] MEDS: MIRTAZAPINE 15 MG TAB PO SCH (19:49)
[2021-12-27] MEDS: ATORVASTATIN 10 MG TAB PO SCH (19:49)
[2021-12-27] MEDS: ALPRAZOLAM 0.25 MG TABLET PO SCH (19:49)
[2021-12-27] MEDS: CARBIDOPA/LEVODOPA 25/100 TAB PO SCH (19:49)
[2021-12-27] MEDS: MECLIZINE HCL 12.5 MG TAB PO SCH (19:50)
[2021-12-27] MEDS: LORazepam 2 MG/ML VIAL IV PRN (20:34)
[2021-12-27] MEDS: Levofloxacin500mg IV 500 MG/100 ML BAG IV SCH (20:34)
[2021-12-27] MEDS ORDERED: HOME MED 1 EA UNK (Mirtazapine [Mirtazapine] 7.5 MG Tablet) PO SCH (21:00)
[2021-12-28] MEDS: JEVITY 1.5 CAL LIQUID 1,000 ML BOT FT SCH ×21 (01:00→19:59)
[2021-12-28] MEDS: NA CHLORIDE 0.9% 1,000 ML IV SCH ×2 (01:36→23:53)
[2021-12-28] MEDS ORDERED: LEVOTHYROXINE SOD 0.125 MG TAB PO SCH (06:00)
[2021-12-28 06:27] LABS: Hematocrit 32.6 % (36.0-45.0); Lymphocytes % 15.8 % (15.3-44.8); MCV 88.5 fL (80-100); MPV 8.1 fL (7.6-11.3); RBC Red Blood Cell Count 3.68 M/uL (3.86-4.86)
[2021-12-28 06:41] LABS: Albumin 2.7 g/dL (3.4-5.0); Bilirubin Total 0.4 mg/dL (0.2-1.0); Potassium 3.2 mmol/L (3.5-5.1); Protein, Total 6.1 g/dL (6.4-8.2)
[2021-12-28] MEDS ORDERED: AMLODIPINE 5 MG TAB PO SCH (09:00)
[2021-12-28] MEDS ORDERED: ZINC SULFATE 220 MG CAP PO SCH (09:00)
[2021-12-28] MEDS: CARBIDOPA/LEVODOPA 25/100 TAB PO SCH ×3 (09:00→20:00)
[2021-12-28] MEDS: OXYBUTYNIN CHLORIDE 5 MG TAB PO SCH ×3 (09:00→20:00)
[2021-12-28] MEDS: ALPRAZOLAM 0.25 MG TABLET PO SCH ×3 (09:00→20:00)
[2021-12-28] MEDS: MECLIZINE HCL 12.5 MG TAB PO SCH ×2 (09:00→19:59)
[2021-12-28] MEDS ORDERED: ASCORBIC ACID 500 MG TABLET PO SCH (09:00)
[2021-12-28] MEDS: ENOXAPARIN 40 MG/0.4 ML SQ SCH (09:58)
[2021-12-28] MEDS: KCL 20 MEQ/100 mL IVPB 20 MEQ/100 ML BAG IV SCH ×2 (09:59→13:17)
--- NOTE | 2021-12-28 11:46 | P.PN ---
Subjective Date of Service: 12/28/21 Chief Complaint: Sepsis, pneumonia, issues with swallowing. No change in patient's condition she is not eating and drinking has severe Parkinson's disease mated with cellulitis has trouble swallowing Review of Systems is unable to be obtained Physical Examination - Vital Signs Temperature: 98.3 F Blood Pressure: 154/77 Pulse: 70 Respirations: 20 Pulse Ox (%): 98 - Physical Exam General: Alert, Cooperative Neck: Supple Respiratory: Clear to auscultation bilaterally, Diminished Cardiovascular: Edema Gastrointestinal: Normal bowel sounds - Studies Microbiology Data (last 24 hrs): 12/25/21 22:06 Catheterized Urine [place] Count - Final No growth. 12/25/21 22:06 Catheterized Urine - Final No growth. Assessment And Plan - Current Problems (Diagnosis) (1) Cellulitis and abscess of foot Current Visit: Yes Status: Acute Plan: Left foot cellulitis has improved significantly he is on IV levofloxacin (2) Unable to coordinate sucking, swallowing, and breathing Current Visit: Yes Status: Acute Plan: Patient is unable to swallow due to underlying severe Parkinson's disease unable to insert a Dobbhoff tube speech therapy recommended a PEG tube no GI available plan to transfer to a tertiary care facility continue with IV fluids prognosis poor
[2021-12-28 13:25] VITALS: O2SAT 96
[2021-12-28] MEDS: LORazepam 2 MG/ML VIAL IV PRN (19:50)
[2021-12-28] MEDS: Levofloxacin500mg IV 500 MG/100 ML BAG IV SCH (19:50)
[2021-12-28] MEDS: DULOXETINE 30 MG CAP PO SCH (19:59)
[2021-12-28] MEDS: MIRTAZAPINE 15 MG TAB PO SCH (20:00)
[2021-12-28] MEDS: ATORVASTATIN 10 MG TAB PO SCH (20:00)
[2021-12-28 20:22] VITALS: BP 167/72; TEMP 97.7
--- NOTE | 2021-12-30 17:48 | P.DS ---
Admission Date: 12/26/21 Discharge Date: 12/30/21 Discharge Condition: FAIR Reason for Admission: Sepsis, pneumonia, issues with swallowing. - Problems (1) Cellulitis and abscess of foot Status: Acute (2) Unable to coordinate sucking, swallowing, and breathing Status: Acute Brief History of Present Illness: PT Aw cellulitis Hospital Course: ES parkinsons disease. Unable to eat or drink. Failed swallow test. NO GI availbel forPEG tube. Pt transferred to [facility]. At the time of discharge pt stable daughter at bed side. Vitals stable cellulitis improving. Dobhoff not successful Vital Signs/Physical Exam: Temp Pulse Resp BP Pulse Ox 97.7 F 84 19 167/72 H 99 12/28/21 20:00 12/28/21 20:00 12/28/21 20:00 12/28/21 20:00 12/28/21 20:00 Laboratory Data at Discharge: WBC 12.5 K/uL (4.3-10.9) H 12/28/21 06:04 Hgb 10.6 g/dL (12.0-15.0) L 12/28/21 06:04 Hct 32.6 % (36.0-45.0) L 12/28/21 06:04 Plt Count 141 K/uL (152-406) L 12/28/21 06:04 PT 11.9 SECONDS (9.5-12.5) 12/25/21 21:12 INR 1.08 12/25/21 21:12 APTT 27.6 SECONDS (24.3-36.9) 12/25/21 21:12 Sodium Cancelled 12/29/21 05:00 Potassium Cancelled 12/29/21 05:00 BUN Cancelled 12/29/21 05:00 Creatinine Cancelled 12/29/21 05:00 Glucose Cancelled 12/29/21 05:00 Total Bilirubin 0.4 mg/dL (0.2-1.0) 12/28/21 06:04 AST 11 U/L (15-37) L 12/28/21 06:04 ALT 15 U/L (12-78) 12/28/21 06:04 Alkaline Phosphatase 74 U/L (45-117) 12/28/21 06:04 Home Medications: ALPRAZolam [Xanax*] 0.25 mg PO TID 01/28/20 Amlodipine [Norvasc*] 5 mg PO DAILY 01/28/20 Carbidopa/Levodopa [Carbidopa-Levodopa 25-100 Tab] 1 each PO TID 01/28/20 Cholecalciferol (Vitamin D3) [Vitamin D 5,000 IU Cap*] 5,000 unit PO DAILY 01/28/20 Diphenhydramine HCl [Benadryl Allergy] 25 mg PO BID 01/28/20 Duloxetine HCl [Cymbalta] 60 mg PO BEDTIME 01/28/20 Levothyroxine [Synthroid*] 125 mcg PO [id number] 01/28/20 Mirtazapine 7.5 mg PO BEDTIME 01/28/20 Oxybutynin Chloride [Ditropan*] 5 mg PO TID 01/28/20 Tramadol HCl [Ultram] 50 mg PO TID 01/28/20 Acetaminophen [Tylenol*] 650 mg PO Q4HP PRN 12/26/21 Ascorbic Acid [Vitamin C*] 500 mg PO DAILY 12/26/21 Atorvastatin Calcium [Lipitor*] 10 mg PO BEDTIME 12/26/21 Docusate Sodium [Dulcolax Stool Softener] 200 mg PO BEDTIME 12/26/21 Lactase [Dairy Relief] 2 tab PO Q4HP PRN 12/26/21 Levocetirizine Dihydrochloride [Allergy Relief] 5 mg PO DAILY PRN 12/26/21 Loperamide [Imodium*] 2 mg PO PRN PRN 12/26/21 Mag Hydrox/Aluminum Hyd/Simeth [Mylanta Maximum Strength Liq] 30 ml PO Q12HP PRN 12/26/21 Meclizine HCl [Antivert*] 12.5 mg PO BID 12/26/21 Nystatin [Nystop] 1 appl TP DAILY 12/26/21 Vit C/E/Zn/Coppr/Lutein/Zeaxan [Preservision Areds 2 Softgel] 1 each PO DAILY 12/26/21 Zinc Sulfate [Zinc Sulfate*] 220 mg PO DAILY 12/26/21 diphenhydrAMINE HCL [Diphenhydramine HCl] 25 mg PO Q6HP PRN 12/26/21 guaiFENesin [Bibi-Tussin] 10 ml PO Q6HP PRN 12/26/21 Cetirizine HCl [Zyrtec*] 10 mg PO DAILY PRN tablet 12/28/21 Enoxaparin Sodium [Lovenox 40 MG INJ*] 40 mg SQ DAILY syr 12/28/21 Followup: Deangelo Ramos MD [Primary Care Provider] -
== END 2021-12-29 00:35 | disposition short-term general hospital (02) | DRG 871 ==
LOC: ER 20:09 → ERHOLD 12-26 00:04 → 2ND 12-26 03:16
PROVIDERS: ADMIT Hospitalist; ATTEND Hospitalist
DX: A41.9 Sepsis, unspecified organism (principal); J18.9 Pneumonia, unspecified organism; L03.116 Cellulitis of left lower limb; I10 Essential (primary) hypertension; E78.5 Hyperlipidemia, unspecified; F41.9 Anxiety disorder, unspecified; F32.A Depression, unspecified; E03.9 Hypothyroidism, unspecified; G20 Parkinson's disease; R09.02 Hypoxemia; R13.10 Dysphagia, unspecified; Z20.822 Contact with and (suspected) exposure to COVID-19
CPT/HCPCS: 36415; 71045; 74230; 80053; 81003; 81015; 82805; 83605; 84132; 85025; 85610; 85730; 87040; 87086; 87088; 87804; 92611; 93005; 94010; 96365; 96366; 99285; J1650; J2270; J3480; J7030; U0003